=== PATIENT | male | born 1955 | race Caucasian/White ===

== ENCOUNTER 2020-06-24 11:22 | Emergency (ER) | payer BC ==
[~2020-06-24] VITALS: Ht 185.5 cm; Wt 85.7 kg
[2020-06-24] MEDS ORDERED: LACTATED RINGERS 1,000 ML IV SCH (11:30)
--- NOTE | 2020-06-24 11:37 | ED Lower Extremity ---
General Chief Complaint: Lower Extremity Stated Complaint: RIGHT LEG SWELLING Source: patient, EMS Exam Limitations: no limitations History of Present Illness Date Seen by Provider: Jun 24, 2020 Time Seen by Provider: 11:33 Initial Comments To ER by EMS from home with reports of a 5 day history of weakness and general malaise and right leg swelling. Beginning on Sunday, 12 June he noticed some diarrhea nausea and vomiting as well as poor appetite. He had some chills but no measured fever. On Sunday he noticed some swelling and redness and slight discomfort to his right lower leg. No history of this. He is now generally weak with continued swelling and redness of the right leg but absent fever chills for a few days, nausea vomiting diarrhea has also subsided for a few days.. He does smoke about one pack of cigarettes per day, works pouring concrete. Does not have a local physician, formerly was a patient of Dr. Navarrete. Does drink a 6pack of beer daily Onset: other Severity: moderate Pain/Injury Location: right leg Method of Injury: unknown Modifying Factors: Worse With Movement Allergies and Home Medications Allergies Coded Allergies: No Known Drug Allergies (Unverified , 06/24/20) Home Medications Amoxicillin/Potassium Clav 1 Each Tablet, 1 EACH PO BID Prescribed by: BARBI TOVAR on 06/24/20 1304 Patient Home Medication List Home Medication List Reviewed: Yes Review of Systems Constitutional: see HPI, chills EENTM: see HPI Respiratory: no symptoms reported Cardiovascular: no symptoms reported Gastrointestinal: No abdominal pain; diarrhea, nausea, vomiting Genitourinary: no symptoms reported Musculoskeletal: see HPI Skin: see HPI Psychiatric/Neurological: No Symptoms Reported Physical Exam Vital Signs Vital Signs - First Documented 06/24/20 11:31 Temp 36.7 Pulse 96 B/P (MAP) 139/80 (99) O2 Delivery Room Air Capillary Refill : Height, Weight, BMI Height: '" Weight: lbs. oz. kg; BMI Method: General Appearance: WD/WN, no apparent distress HEENT: PERRL/EOMI, normal ENT inspection Neck: non-tender, full range of motion Respiratory: lungs clear, normal breath sounds, no respiratory distress, no accessory muscle use Gastrointestinal: normal bowel sounds, non tender Hips: bilateral hip non-tender, bilateral hip normal inspection, bilateral hip normal range of motion Legs: bilateral leg non-tender, bilateral leg normal inspection, bilateral leg normal range of motion Knees: bilateral knee non-tender, bilateral knee normal inspection, bilateral knee normal range of motion Ankles: bilateral ankle other (hemosiderin staining bilateral lower extremities with swelling of the right lower leg and an erythematous petechial rash mostly confined to the right ankle and the dorsum of the right foot. No open wounds. He denies injury.) Neurologic/Tendon: normal sensation, normal motor functions Neurologic/Psychiatric: alert, normal mood/affect, oriented x 3 Skin: normal color, warm/dry Progress/Results/Core Measures Results/Orders Lab Results Laboratory Tests Test 06/24/20 11:27 Range/Units White Blood Count 6.4 4.3-11.0 10^3/uL Red Blood Count 3.61 L 4.35-5.85 10^6/uL Hemoglobin 11.3 L 13.3-17.7 G/DL Hematocrit 34 L 40-54 % Mean Corpuscular Volume 95 80-99 FL Mean Corpuscular Hemoglobin 31 25-34 PG Mean Corpuscular Hemoglobin Concent 33 32-36 G/DL Red Cell Distribution Width 20.8 H 10.0-14.5 % Platelet Count 87 L 130-400 10^3/uL Mean Platelet Volume 10.1 7.4-10.4 FL Neutrophils (%) (Auto) 59 42-75 % Lymphocytes (%) (Auto) 21 12-44 % Monocytes (%) (Auto) 17 H 0-12 % Eosinophils (%) (Auto) 3 0-10 % Basophils (%) (Auto) 1 0-10 % Neutrophils # (Auto) 3.8 1.8-7.8 X 10^3 Lymphocytes # (Auto) 1.4 1.0-4.0 X 10^3 Monocytes # (Auto) 1.1 H 0.0-1.0 X 10^3 Eosinophils # (Auto) 0.2 0.0-0.3 10^3/uL Basophils # (Auto) 0.1 0.0-0.1 10^3/uL Prothrombin Time 17.3 H 12.2-14.7 SEC INR Comment 1.4 0.8-1.4 Sodium Level 135 135-145 MMOL/L Potassium Level 3.4 L 3.6-5.0 MMOL/L Chloride Level 103 98-107 MMOL/L Carbon Dioxide Level 23 21-32 MMOL/L Anion Gap 9 5-14 MMOL/L Blood Urea Nitrogen 19 H 7-18 MG/DL Creatinine 0.78 0.60-1.30 MG/DL Estimat Glomerular Filtration Rate > 60 BUN/Creatinine Ratio 24 Glucose Level 106 H 70-105 MG/DL Lactic Acid Level 1.68 0.50-2.00 MMOL/L Calcium Level 8.1 L 8.5-10.1 MG/DL Corrected Calcium 9.1 8.5-10.1 MG/DL Total Bilirubin 2.2 H 0.1-1.0 MG/DL Aspartate Amino Transf (AST/SGOT) 37 H 5-34 U/L Alanine Aminotransferase (ALT/SGPT) 20 0-55 U/L Alkaline Phosphatase 76 40-136 U/L Total Protein 8.2 6.4-8.2 GM/DL Albumin 2.7 L 3.2-4.5 GM/DL My Orders Orders - BARBI TOVAR [employer] [facility] Cbc With Automated Diff (06/24/20 11:27) Blood Culture (06/24/20 11:27) Lactic Acid Analyzer (06/24/20 11:27) Protime With Inr (06/24/20 11:27) Chest 1 View, Ap/Pa Only (06/24/20 11:27) Ua Culture If Indicated (06/24/20 11:27) Us Venous Lower Ext Rt (06/24/20 11:27) Comprehensive Metabolic Panel (06/24/20 11:27) Ed Iv/Invasive Line Start (06/24/20 11:27) Lactated Ringers (Lr 1000 Ml Iv Solution (06/24/20 11:30) Vital Signs/I&O 06/24/20 11:31 Temp 36.7 Pulse 96 B/P (MAP) 139/80 (99) O2 Delivery Room Air Departure Communication (Admissions) His labs are unimpressive, his ultrasound is negative, he drinks a sixpack of beer daily. We'll proceed with outpatient antibiotic therapy as inpatient admission is unnecessary and will only cause him to withdraw from alcohol.I made an appointment for him with Dr Will Kaufman Thursday 06/28 at 10 am. Impression Primary Impression: Cellulitis of right lower extremity Disposition: HOME, SELF-CARE Condition: Stable Departure-Patient Inst. Decision time for Depature: 13:02 Referrals: NO,LOCAL PHYSICIAN (PCP) Primary Care Physician DONNA NOBLES CHAD C MD Patient Instructions: Cellulitis (Skin Infection), Adult (DC) Add. Discharge Instructions: 1. Elevate the foot. Take antibiotics as directed. Follow up with primary care next week. Return to ER for any worsening. I made an appointment for you on at 10am with Dr Will Kaufman. All discharge instructions reviewed with patient and/or family. Voiced understanding. Scripts Amoxicillin/Potassium Clav (Augmentin 875-125 Tablet) 1 Each Tablet 1 EACH PO BID, #14 TAB 0 Refills Prov: BARBI TOVAR APRN 06/24/20 Copy Copies To 1: WILL KAUFMAN MD, PETER J [employer] [facility] [employer]ORDER Jun 24, 2020 11:37
[2020-06-24 11:41] LABS: BASOPHILS # (AUTO) 0.1 10^3/uL (0.0-0.1); BASOPHILS % (AUTO) 1 % (0-10); EOSINOPHILS # (AUTO) 0.2 10^3/uL (0.0-0.3); EOSINOPHILS % (AUTO) 3 % (0-10); HEMATOCRIT 34 % (40-54); HEMOGLOBIN 11.3 G/DL (13.3-17.7); LYMPHOCYTES # (AUTO) 1.4 X 10^3 (1.0-4.0); LYMPHOCYTES % (AUTO) 21 % (12-44); MEAN CORPUSCULAR HEMOGLOBIN 31 PG (25-34); MEAN CORPUSCULAR HGB CONC 33 G/DL (32-36); MEAN CORPUSCULAR VOLUME 95 FL (80-99); MEAN PLATELET VOLUME 10.1 FL (7.4-10.4); MONOCYTES # (AUTO) 1.1 X 10^3 (0.0-1.0); MONOCYTES % (AUTO) 17 % (0-12); NEUTROPHILS # (AUTO) 3.8 X 10^3 (1.8-7.8); NEUTROPHILS % (AUTO) 59 % (42-75); PLATELET COUNT 87 10^3/uL (130-400); RED CELL DISTRIBUTION WIDTH 20.8 % (10.0-14.5); WHITE BLOOD COUNT 6.4 10^3/uL (4.3-11.0)
[2020-06-24 11:45] LABS: INR 1.4 (0.8-1.4); PROTHROMBIN TIME PATIENT 17.3 SEC (12.2-14.7)
[2020-06-24 11:53] LABS: ALANINE AMINOTRANSFERASE 20 U/L (0-55); ALBUMIN 2.7 GM/DL (3.2-4.5); ALKALINE PHOSPHATASE 76 U/L (40-136); BILIRUBIN,TOTAL 2.2 MG/DL (0.1-1.0); BUN/CREATININE RATIO 24; CALCIUM 8.1 MG/DL (8.5-10.1); CARBON DIOXIDE 23 MMOL/L (21-32); CHLORIDE 103 MMOL/L (98-107); CREATININE SERUM 0.78 MG/DL (0.60-1.30); GFR ESTIMATED > 60; GLUCOSE 106 MG/DL (70-105); POTASSIUM 3.4 MMOL/L (3.6-5.0); SODIUM 135 MMOL/L (135-145); TOTAL PROTEIN 8.2 GM/DL (6.4-8.2)
--- NOTE | 2020-06-24 11:54 | Diagnostic Imaging Report ---
Indication: Leg swelling, tobaccoism Portable chest 11:54 AM Heart size and pulmonary vascularity are normal. Lungs are clear. There are no effusions or pneumothoraces. IMPRESSION: Negative chest Dictated by: Dictated on workstation # [id number]
--- OUTSIDE RECORDS SUMMARY | 2020-06-24 12:12 | XMS REPORT | Continuity of Care Document ---
Demographics Preferred Language Unknown Marital Status Unknown Baptism Affiliation Unknown Race Unknown Ethnic Group Unknown Author Organization Unknown Address Unknown Phone Unavailable Allergies There is no data. Medications There is no data. Problems There is no data. Procedures There is no data. Results Test Result Range Complete blood count (CBC) with automate d white blood cell (WBC) differential - 06/24/20 11:27 Blood leukocytes automated count (number/volume) 6.4 10*3/uL 4.3-11.0 Blood erythrocytes automated count (number/volume) 3.61 10*6/uL 4.35-5.85 Venous blood hemoglobin measurement (mass/volume) 11.3 g/dL 13.3-17.7 Blood hematocrit (volume fraction) 34 % 40-54 Automated erythrocyte mean corpuscular volume 95 [ foz_us] 80-99 Automated erythrocyte mean corpuscular h emoglobin (mass per erythrocyte) 31 pg 25-34 Automated erythrocyte mean corpuscular h emoglobin concentration measurement (mass/volume) 33 g/dL 32-36 Automated erythrocyte distribution width ratio 20. 8 % 10.0- 14.5 Automated blood platelet count (count/volume) 87 1 0*3/uL 130-400 Automated blood platelet mean volume measurement 10.1 [foz_us] 7.4-10.4 Automated blood neutrophils/100 leukocytes 59 % 42-75 Automated blood lymphocytes/100 leukocytes 21 % 12-44 Blood monocytes/100 leukocytes 17 % 0-12 Automated blood eosinophils/100 leukocytes 3 % 0-10 Automated blood basophils/100 leukocytes 1 % 0-10 Blood neutrophils automated count (number/volume) 3.8 10*3 1.8-7.8 Blood lymphocytes automated count (number/volume) 1.4 10*3 1.0-4.0 Blood monocytes automated count (number/volume) 1. 1 10*3 0.0-1.0 Automated eosinophil count 0.2 10*3/uL 0 .0-0.3 Automated blood basophil count (count/volume) 0.1 10*3/uL 0.0-0.1 PT panel in platelet poor plasma by coag ulation assay - 06/24/20 11:27 Prothrombin time (PT) in platelet poor plasma by coagu lation assay 17.3 s 12.2-14.7 INR in platelet poor plasma or blood by coagulation as say 1.4 0.8-1.4 Blood lactic acid measurement (moles/vol ume) - 06/24/20 11:27 Blood lactic acid measurement (moles/volume) 1.68 mmol/L 0.50-2.00 Comprehensive metabolic panel - 06/24/20 11:27 Serum or plasma sodium measurement (moles/volume) 135 mmol/L 135-145 Serum or plasma potassium measurement (moles/volume) 3.4 mmol/L 3.6-5.0 Serum or plasma chloride measurement (moles/volume) 103 mmol/L 98-107 Carbon dioxide 23 mmol/L 21-32 Serum or plasma anion gap determination (moles/volume) 9 mmol/L 5-14 Serum or plasma urea nitrogen measurement (mass/volume ) 19 mg/dL 7-18 Serum or plasma creatinine measurement (mass/volume) 0.78 mg/dL 0.60-1.30 Serum or plasma urea nitrogen/creatinine mass ratio 24 NRG Serum or plasma creatinine measurement w ith calculation of estimated glomerular filtration rate > NRG Serum or plasma glucose measurement (mass/volume) 106 mg/dL 70-105 Serum or plasma calcium measurement (mass/volume) 8.1 mg/dL 8.5-10.1 Serum or plasma total bilirubin measurement (mass/volu me) 2.2 mg/dL 0.1-1.0 Serum or plasma alkaline phosphatase elías surement (enzymatic activity/volume) 76 U/L 40-136 Serum or plasma aspartate aminotransfera se measurement (enzymatic activity/volume) 37 U/L 5-34 Serum or plasma alanine aminotransferase measurement (enzymatic activity/volume) 20 U/L 0-55 Serum or plasma protein measurement (mass/volume) 8.2 g/dL 6.4-8.2 Serum or plasma albumin measurement (mass/volume) 2.7 g/dL 3.2-4.5 CALCIUM CORRECTED 9.1 mg/dL 8.5-10.1 Encounters ACCT No. Visit Date/Time Discharge Status Pt. Type Provider Facility Loc./Unit Complaint [id number] 06/24/2020 11:46:00 Document Registration
[2020-06-24] MEDS ORDERED: CATHETER FLUSH 10 ML SYR IV PRN (12:45)
[2020-06-24] MEDS ORDERED: IOHEXOL 350 MG/ML 100 ML (OMNIPAQUE 350) VIAL IV ONE (12:45)
[2020-06-24] MEDS ORDERED: NS 100 ML (IVPB) BAG IV ONE (12:45)
[2020-06-24] MEDS ORDERED: HOLD METFORMIN - RECEIVED CONTRAST 20 ML VIAL IV SCH (12:45)
--- NOTE | 2020-06-24 12:53 | Diagnostic Imaging Report ---
INDICATION: Redness and swelling of the right lower extremity. COMPARISON: None. TECHNIQUE: Duplex, barrera-scale and color-flow imaging of the right lower extremity venous system was performed. FINDINGS: The common femoral vein, superficial femoral vein, profunda femoris, and popliteal veins are normal. These vessels show normal compressibility, color flow, and Doppler augmentation. The deep calf veins, although not very well seen, demonstrate no distinct intraluminal thrombus. IMPRESSION: Negative venous Doppler of the right lower extremity. Dictated by: Dictated on workstation # [id number]
[2020-06-24] MEDS ORDERED: AMOX-358 PO (13:04)
[2020-06-24] MEDS ORDERED: HYDR-3870 PO (13:12)
[2020-06-24] MEDS ORDERED: cefTRIAXone FOR IV USE 2,000 MG in WATER (STERILE) FOR INJECTION 20 ML IV ONE (13:15)
[2020-06-24 13:31] LABS: BILIRUBIN,URINE NEGATIVE (NEGATIVE); CLARITY,URINE CLEAR; COLOR,URINE ORANGE; GLUCOSE, URINE (UA) NEGATIVE (NEGATIVE); KETONES,URINE NEGATIVE (NEGATIVE); LEUKOCYTE ESTERASE ,URINE NEGATIVE (NEGATIVE); NITRITE,URINE NEGATIVE (NEGATIVE); PH,URINE 5.5 (5-9); PROTEIN,URINE NEGATIVE (NEGATIVE)
[2020-06-24 13:36] VITALS: BP 129/78
[2020-06-24 13:37] LABS: BACTERIA,URINE FEW /HPF; WBC,URINE RARE /HPF
== END 2020-06-24 13:36 | disposition home or self-care (01) ==
LOC: EDUNIT# 11:22 → ER 11:23
DX: L03.115 Cellulitis of right lower limb (principal); F17.210 Nicotine dependence, cigarettes, uncomplicated
CPT/HCPCS: 36415; 71045; 80053; 81000; 83605; 85025; 85610; 87040

== ENCOUNTER 2020-06-27 13:51 | Observation (INO) | payer BC ==
[~2020-06-27] VITALS: Ht 185.5 cm; Wt 81.8 kg
[~2020-06-27 13:51] MED LIST: AMOX-358 PO; HYDR-3870 PO
--- OUTSIDE RECORDS SUMMARY | 2020-06-27 13:55 | XMS REPORT | Continuity of Care Document ---
Author Author The TABBY Mejia Organization [employer] Address Unknown Phone Unavailable Allergies Active Description Code Type Severity Reaction Onset Reported/Identified Relationship to Patient Clinical Status Yes No Known Drug Allergies [id number] Drug Allergy Unknown N/A 06/24/2020 Medications There is no data. Problems There [...] g/dL 3.2-4.5 CALCIUM CORRECTED 9.1 mg/dL 8.5-10.1 Bacterial blood culture - 06/24/20 11:27 Bacterial blood culture NG NRG Bacterial blood culture - 06/24/20 12:08 Bacterial blood culture NG NRG Complete urinalysis with reflex to cultu re - 06/24/20 13:23 Urine color determination ORANGE NRG Urine clarity determination CLEAR NR G Urine pH measurement by test strip 5.5 5-9 Specific gravity of urine by test strip 1.015 1.016-1.022 Urine protein assay by test strip, semi-quantitative NEGATIVE NEGATIVE Urine glucose detection by automated test strip NE GATIVE NEGATIVE Erythrocytes detection in urine sediment by light micr oscopy NEGATIVE NEGATIVE Urine ketones detection by automated test strip NE GATIVE NEGATIVE Urine nitrite detection by test strip NEGATIVE NEGATIVE Urine total bilirubin detection by test strip NEGA TIVE NEGATIVE Urine urobilinogen measurement by automated test strip (mass/volume) 2.0 mg/dL < = 1.0 Urine leukocyte esterase detection by dipstick NEG ATIVE NEGATIVE Automated urine sediment erythrocyte cou nt by microscopy (number/high power field) NONE NRG Automated urine sediment leukocyte count by microscopy (number/high power field) RARE NRG Bacteria detection in urine sediment by light microsco py FEW NRG Squamous epithelial cells detection in u rine sediment by light microscopy 10-25 NRG Crystals detection in urine sediment by light microsco py NONE NRG Casts detection in urine sediment by light microscopy NONE NRG Mucus detection in urine sediment by light microscopy NEGATIVE NRG Complete urinalysis with reflex to culture NO NRG Encounters ACCT No. Visit Date/Time Discharge Status Pt. Type Provider Facility Loc./Unit Complaint [id number] 06/24/2020 11:23:00 020 13:36:00 DIS Emergency BARBI TOVAR [employer] [facility] ER RIGHT LEG SWELLING [id number] 06/27/2020 13:52:[address] Emergency CALVIN RAMSAY MD [facility] ER CELLULITIS
[2020-06-27 14:12] LABS: BASOPHILS % (AUTO) 1 % (0-10); EOSINOPHILS # (AUTO) 0.2 10^3/uL (0.0-0.3); EOSINOPHILS % (AUTO) 4 % (0-10); HEMATOCRIT 33 % (40-54); HEMOGLOBIN 10.9 G/DL (13.3-17.7); LYMPHOCYTES # (AUTO) 1.3 X 10^3 (1.0-4.0); LYMPHOCYTES % (AUTO) 21 % (12-44); MEAN CORPUSCULAR HEMOGLOBIN 32 PG (25-34); MEAN CORPUSCULAR HGB CONC 33 G/DL (32-36); MEAN CORPUSCULAR VOLUME 97 FL (80-99); MONOCYTES # (AUTO) 0.9 X 10^3 (0.0-1.0); MONOCYTES % (AUTO) 15 % (0-12); NEUTROPHILS # (AUTO) 3.7 X 10^3 (1.8-7.8); NEUTROPHILS % (AUTO) 60 % (42-75); PLATELET COUNT 117 10^3/uL (130-400); RED CELL DISTRIBUTION WIDTH 20.2 % (10.0-14.5); WHITE BLOOD COUNT 6.2 10^3/uL (4.3-11.0)
[2020-06-27] MEDS ORDERED: fentaNYL INJECTION 100 MCG/2 ML AMP IVP ONE (14:15)
--- NOTE | 2020-06-27 14:17 | ED Lower Extremity ---
General Chief Complaint: Lower Extremity Stated Complaint: CELLULITIS Source: patient, EMS Exam Limitations: no limitations History of Present Illness Date Seen by Provider: Jun 27, 2020 Time Seen by Provider: 13:37 Initial Comments The patient arrives to the ER by EMS from his home with chief complaint of increasing pain and inability to walk or put pressure on his right lower extremity. He has increasing redness and dusky color to it according to EMS. He does not follow with a doctor nor have any significant medical or surgical history. He does drink a sixpack of beer a night and smoke cigarettes however he has not been ill to drink in the past 2 weeks because of the pain and inability to get up and move around. No history of trauma. No fevers chills nausea vomiting diarrhea cough. He was seen here a week ago for the same symptoms and given some hydrocodone and antibiotics which she has been taking. His last dose of hydrocodone was this morning which he said gave modest relief. The patient was having some GI symptoms with nausea and vomiting for 5 days leading up to coming into the ER. He is not having any anorexia or vomiting anymore. An appointment was made for 10:[address] Will Kaufman. Allergies and Home Medications Allergies Coded Allergies: No Known Drug Allergies (Unverified , 06/24/20) Home Medications Amoxicillin/Potassium Clav 1 Each Tablet, 1 EACH PO BID Prescribed by: BARBI TOVAR on 06/24/20 1304 Hydrocodone/Acetaminophen 1 Each Tablet, 1 EACH PO Q4-6HR PRN for PAIN-MODERATE Prescribed by: BARBI TOVAR on 06/24/20 1312 Patient Home Medication List Home Medication List Reviewed: Yes Review of Systems Constitutional: No chills, No fever, No malaise; weakness EENTM: No ear discharge, No ear pain Respiratory: No cough, No short of breath Cardiovascular: No chest pain, No edema, No Hx of Intervention, No palpitations Gastrointestinal: No abdominal pain, No constipation, No nausea, No vomiting Genitourinary: No discharge, No dysuria, No frequency Musculoskeletal: No back pain, No joint pain All Other Systems Reviewed Negative Unless Noted: Yes Past Uivypsl-Poxrly-Yfkthy Hx Patient Social History Alcohol Use: Regular Use Alcohol Beverage of Choice: Beer Recreational Drug Use: No Smoking Status: Current Everyday Smoker Type Used: Cigarettes 2nd Hand Smoke Exposure: No Recent Hopitalizations: No Seasonal Allergies Seasonal Allergies: No Past Medical History Surgeries: No Respiratory: No Cardiac: No Neurological: No Genitourinary: No Gastrointestinal: Yes Gastroesophageal Reflux Musculoskeletal: Yes (LEFT THUMB FX) Fractures Integumentary: No Physical Exam Vital Signs Vital Signs - First Documented 06/27/20 13:58 Pulse 91 Resp 18 B/P (MAP) 146/79 (101) Pulse Ox 100 O2 Delivery Room Air Capillary Refill : Height, Weight, BMI Height: '" Weight: lbs. oz. kg; 24.00 BMI Method: General Appearance: WD/WN, mild distress HEENT: PERRL/EOMI, normal ENT inspection, pharynx normal Neck: full range of motion, supple, normal inspection Cardiovascular: normal peripheral pulses, regular rate, rhythm Respiratory: lungs clear, normal breath sounds, no respiratory distress, no accessory muscle use Gastrointestinal: normal bowel sounds, non tender, soft Neurologic/Tendon: normal sensation, normal motor functions, normal tendon functions, responds to pain, no evidence tendon injury Neurologic/Psychiatric: no motor/sensory deficits, alert, normal mood/affect, oriented x 3 Skin: warm/dry, other (right lower extremity below the knee to the level of ankle has a non-blanchable for, macular/patches circumferential. Dusky brown hemosiderin staining bilateral lower extremities.) Progress/Results/Core Measures Results/Orders Lab Results Laboratory Tests Test 06/27/20 13:58 Range/Units White Blood Count 6.2 4.3-11.0 10^3/uL Red Blood Count 3.45 L 4.35-5.85 10^6/uL Hemoglobin 10.9 L 13.3-17.7 G/DL Hematocrit 33 L 40-54 % Mean Corpuscular Volume 97 80-99 FL Mean Corpuscular Hemoglobin 32 25-34 PG Mean Corpuscular Hemoglobin Concent 33 32-36 G/DL Red Cell Distribution Width 20.2 H 10.0-14.5 % Platelet Count 117 L 130-400 10^3/uL Mean Platelet Volume 10.0 7.4-10.4 FL Neutrophils (%) (Auto) 60 42-75 % Lymphocytes (%) (Auto) 21 12-44 % Monocytes (%) (Auto) 15 H 0-12 % Eosinophils (%) (Auto) 4 0-10 % Basophils (%) (Auto) 1 0-10 % Neutrophils # (Auto) 3.7 1.8-7.8 X 10^3 Lymphocytes # (Auto) 1.3 1.0-4.0 X 10^3 Monocytes # (Auto) 0.9 0.0-1.0 X 10^3 Eosinophils # (Auto) 0.2 0.0-0.3 10^3/uL Basophils # (Auto) 0.0 0.0-0.1 10^3/uL Erythrocyte Sedimentation Rate 95 H 0-30 MM/HR Prothrombin Time 17.5 H 12.2-14.7 SEC INR Comment 1.4 0.8-1.4 Activated Partial Thromboplast Time 43 H 24-35 SEC D-Dimer 3.99 H 0.00-0.49 UG/ML Sodium Level 132 L 135-145 MMOL/L Potassium Level 3.3 L 3.6-5.0 MMOL/L Chloride Level 99 98-107 MMOL/L Carbon Dioxide Level 23 21-32 MMOL/L Anion Gap 10 5-14 MMOL/L Blood Urea Nitrogen 10 7-18 MG/DL Creatinine 0.69 0.60-1.30 MG/DL Estimat Glomerular Filtration Rate > 60 BUN/Creatinine Ratio 14 Glucose Level 98 70-105 MG/DL Calcium Level 8.0 L 8.5-10.1 MG/DL Corrected Calcium 9.0 8.5-10.1 MG/DL Total Bilirubin 2.2 H 0.1-1.0 MG/DL Aspartate Amino Transf (AST/SGOT) 34 5-34 U/L Alanine Aminotransferase (ALT/SGPT) 15 0-55 U/L Alkaline Phosphatase 75 40-136 U/L C-Reactive Protein High Sensitivity 4.25 H 0.00-0.50 MG/DL Total Protein 8.3 H 6.4-8.2 GM/DL Albumin 2.7 L 3.2-4.5 GM/DL Serum Alcohol < 10 <10 MG/DL My Orders Orders - CALIVN RAMSAY Ed Iv/Invasive Line Start (06/27/20 14:01) Cbc With Automated Diff (06/27/20 14:01) Comprehensive Metabolic Panel (06/27/20 14:01) Hs C Reactive Protein (06/27/20 14:01) Erythrocyte Sedimentation Rate (06/27/20 14:01) Protime With Inr (06/27/20 14:01) Partial Thromboplastin Time (06/27/20 14:01) Fentanyl Injection (Sublimaze Injection (06/27/20 14:15) Ua Culture If Indicated (06/27/20 14:23) Chest 1 View, Ap/Pa Only (06/27/20 14:23) Ed Iv/Invasive Line Start (06/27/20 14:23) Ns Iv 1000 Ml (Sodium Chloride 0.9%) (06/27/20 14:23) Alcohol (06/27/20 14:33) Drug Screen Stat (Urine) (06/27/20 14:33) Fibrin Degradation Products (06/27/20 14:34) Medications Given in ED Current Medications Medications Dose Ordered Sig/Bree Route Start Time Stop Time Status Last Admin Dose Admin Fentanyl Citrate 50 mcg ONCE ONCE IVP 06/27/20 14:15 06/27/20 14:16 DC 06/27/20 14:16 50 MCG Vital Signs/I&O 06/27/20 13:58 Pulse 91 Resp 18 B/P (MAP) 146/79 (101) Pulse Ox 100 O2 Delivery Room Air Progress Progress Note #1: Time: 14:19 Progress Note Labs including liver function tests ordered. Does not appear to be cellulitic. Negative venous Doppler scan from 3 days ago. Progress Note #2: Time: 16:06 Progress Note Despite 2 cups of Oral Fluids and a Liter of Saline the Patient Is Unable to Produce Any Urine. Creatinines Okay. Suspect That Just Because He Is Dehydrated. We Discussed with Him Staying Overnight for Rehydration and Further Workup and He Is Okay with That. Diagnostic Imaging Diagonstic Imaging: Xray Plain Films/CT/US/NM/MRI: chest Comments [facility] [place], [place] NAME: TABBY RICHARDS [facility] REC#: [id number] PT STATUS: REG ER : 1955 PHYSICIAN: CALVIN RAMSAY MD ADMIT DATE: 06/27/20/ER Draft Date of Exam:06/27/20 CHEST 1 VIEW, AP/PA ONLY INDICATION: Right lower extremity redness and swelling. TECHNIQUE: Single view chest, 2:40 PM. CORRELATION STUDY: 06/24/2020. FINDINGS: The heart size, mediastinal configuration and pulmonary vascularity are within normal limits. The lungs are clear with no consolidating infiltrate. There is no significant effusion or pneumothorax. IMPRESSION: Generally stable negative appearing portable chest. Dictated on workstation # [id number] Dict: 06/27/20 1450 Trans: 06/27/20 1459 [facility] [id number] Interpreted by: NICOL ESCOBEDO DO Electronically signed by: Reviewed: Reviewed by Me Departure Communication (Admissions) Time/Spoke to Admitting Phy: 16:05 Discussed the case with Dr. Dykes and she agrees to observe the patient overnight for some gentle rehydration. Impression Primary Impression: Dehydration determined by examination Additional Impression: Purpura Disposition: ADMITTED INPATIENT Condition: Stable Admissions Decision to Admit Reason: Admit from ER (General) Decision to Admit/Date: Jun 27, 2020 Time/Decision to Admit Time: 16:08 Departure-Patient Inst. Referrals: NO,LOCAL PHYSICIAN (PCP) Primary Care Physician Copy Copies To 1: WILL KAUFMAN MD, TITUS J Jun 27, 2020 14:17
[2020-06-27 14:23] LABS: ALBUMIN 2.7 GM/DL (3.2-4.5); CHLORIDE 99 MMOL/L (98-107); POTASSIUM 3.3 MMOL/L (3.6-5.0); SODIUM 132 MMOL/L (135-145)
[2020-06-27] MEDS ORDERED: NS IV 1000 ML 1,000 ML IV SCH (14:23)
[2020-06-27 14:24] LABS: INR 1.4 (0.8-1.4); PROTHROMBIN TIME PATIENT 17.5 SEC (12.2-14.7)
[2020-06-27 14:25] LABS: GLUCOSE 98 MG/DL (70-105)
[2020-06-27 14:26] LABS: TOTAL PROTEIN 8.3 GM/DL (6.4-8.2)
[2020-06-27 14:27] LABS: BILIRUBIN,TOTAL 2.2 MG/DL (0.1-1.0); CARBON DIOXIDE 23 MMOL/L (21-32)
[2020-06-27 14:29] LABS: ALKALINE PHOSPHATASE 75 U/L (40-136); CREATININE SERUM 0.69 MG/DL (0.60-1.30); GFR ESTIMATED > 60
[2020-06-27 14:30] LABS: BUN/CREATININE RATIO 14
[2020-06-27 14:32] LABS: ALANINE AMINOTRANSFERASE 15 U/L (0-55)
[2020-06-27 14:37] LABS: ERYTHROCYTE SEDIMENTATION RATE 95 MM/HR (0-30)
--- NOTE | 2020-06-27 14:59 | Diagnostic Imaging Report ---
INDICATION: Right lower extremity redness and swelling. TECHNIQUE: Single view chest, 2:40 PM. CORRELATION STUDY: 06/24/2020. FINDINGS: The heart size, mediastinal configuration and pulmonary vascularity are within normal limits. The lungs are clear with no consolidating infiltrate. There is no significant effusion or pneumothorax. IMPRESSION: Generally stable negative appearing portable chest. Dictated by: Dictated on workstation # [id number]
--- OUTSIDE RECORDS SUMMARY | 2020-06-27 16:29 | XMS REPORT | Continuity of Care Document ---
Author Author The TABBY Mejia Organization [employer] Address Unknown Phone Unavailable Allergies Active Description Code Type Severity Reaction Onset Reported/Identified Relationship to Patient Clinical Status Yes No Known Drug Allergies [id number] Drug Allergy Unknown N/A 06/24/2020 Medications There [...] Status Pt. Type Provider Facility Loc./Unit Complaint [id number] 06/24/2020 11:23:00 020 13:36:00 DIS Emergency BARBI TOVAR APRN [facility] ER RIGHT LEG SWELLING [id number] 06/27/2020 16:05:[address] Inpatient SACHA RIBEIRO, ANGÉLICA Sotelo [facility] 4TH DEHYDRATION AND PURPURA
--- NOTE | 2020-06-27 17:00 | NUR ---
UPDATE GIVEN TO BY DR RAMSAY
[2020-06-27 17:05] VITALS: BP 139/94
[2020-06-27] MEDS ORDERED: fentaNYL INJECTION 100 MCG/2 ML AMP INJ PRN (17:30)
[2020-06-27] MEDS ORDERED: IBUPROFEN 800 MG (MOTRIN) TAB PO PRN (17:30)
[2020-06-27] MEDS ORDERED: ONDANSETRON 4 MG/2 ML (SDV) Z0FRAN IV PRN (17:30)
[2020-06-27] MEDS ORDERED: ACETAMINOPHEN 325 MG TABLET PO PRN (17:30)
--- NOTE | 2020-06-27 17:45 | NUR ---
MADELIN RICHARDS admitted to room 409-1, with an admitting diagnosis of DEHYDRATION RIGHT LEG PURURA , on 06/27/20 from ER via [facility], accompanied by STAFF.TABBY RICHARDS introduced to surroundings, call light, bed controls, phone, TV, temperature control, lights, meal times, smoking policy, visitor policy, side rail policy, bathrooms and showers. Patient Rights given to patient in the handbook.TABBY RICHARDS verbalizes understanding that [facility] is not responsible for the loss or damage to any personal effects or valuables that are kept in the patients posession during their hospitalization. The following Patient Care Plans were discussed with the PT: Discharge Planning, PAIN CONTROL,IV FLUIDS, and TESTS AND PROCEDURES. TABBY RICHARDS verbalizes understanding of Interdisciplinary Patient Education. Patient and/or family were informed about the Rapid Response Team and its purpose.
[2020-06-27] MEDS: LACTATED RINGERS 1,000 ML IV SCH ×2 (18:35→23:29)
[2020-06-27 19:17] VITALS: BP 142/72
[2020-06-27] MEDS: HYDROcodone/APAP 5 MG/325 MG (LORTAB) TAB PO PRN (19:47)
[2020-06-27 21:30] LABS: CLARITY,URINE CLEAR; COLOR,URINE ORANGE; GLUCOSE, URINE (UA) NEGATIVE (NEGATIVE); KETONES,URINE TRACE (NEGATIVE); LEUKOCYTE ESTERASE ,URINE NEGATIVE (NEGATIVE); NITRITE,URINE NEGATIVE (NEGATIVE); PH,URINE 5.5 (5-9); PROTEIN,URINE NEGATIVE (NEGATIVE)
[2020-06-27 21:33] LABS: BILIRUBIN,URINE 1+ (NEGATIVE)
[2020-06-27 21:36] LABS: BACTERIA,URINE TRACE /HPF; WBC,URINE RARE /HPF
[2020-06-27 21:42] LABS: AMPHETAMINE SCREEN, URINE NEGATIVE (NEGATIVE); BARBITURATE SCREEN URINE NEGATIVE (NEGATIVE); BENZODIAZEPINES SCREEN URINE POSITIVE (NEGATIVE); CANNABINOID SCREEN, URINE NEGATIVE (NEGATIVE); COCAINE SCREEN URINE NEGATIVE (NEGATIVE); METHADONE STAT NEGATIVE (NEGATIVE); METHAMPHETAMINE SCREEN URINE S NEGATIVE (NEGATIVE); OPIATE SCREEN URINE POSITIVE (NEGATIVE); OXYCODONE STAT NEGATIVE (NEGATIVE); PROPOXYPHENE STAT NEGATIVE (NEGATIVE); TRICYCLIC ANTIDEPRESSANTS SCRE NEGATIVE (NEGATIVE)
[2020-06-28 00:57] VITALS: BP 150/74
[2020-06-28 04:00] VITALS: BP_SYST 152; BP_SYST 153; BP_DIAS 78
[2020-06-28] MEDS: LACTATED RINGERS 1,000 ML IV SCH ×2 (05:03→10:59)
[2020-06-28] MEDS: HYDROcodone/APAP 5 MG/325 MG (LORTAB) TAB PO PRN ×2 (05:05→09:00)
[2020-06-28 08:00] VITALS: BP 160/76
[2020-06-28 08:32] LABS: BASOPHILS % (AUTO) 1 % (0-10); EOSINOPHILS # (AUTO) 0.2 10^3/uL (0.0-0.3); EOSINOPHILS % (AUTO) 3 % (0-10); HEMATOCRIT 31 % (40-54); HEMOGLOBIN 10.3 G/DL (13.3-17.7); LYMPHOCYTES # (AUTO) 1.1 X 10^3 (1.0-4.0); LYMPHOCYTES % (AUTO) 17 % (12-44); MEAN CORPUSCULAR HEMOGLOBIN 32 PG (25-34); MEAN CORPUSCULAR HGB CONC 33 G/DL (32-36); MEAN CORPUSCULAR VOLUME 96 FL (80-99); MEAN PLATELET VOLUME 9.6 FL (7.4-10.4); MONOCYTES # (AUTO) 0.7 X 10^3 (0.0-1.0); MONOCYTES % (AUTO) 10 % (0-12); NEUTROPHILS # (AUTO) 4.4 X 10^3 (1.8-7.8); NEUTROPHILS % (AUTO) 69 % (42-75); PLATELET COUNT 134 10^3/uL (130-400); RED CELL DISTRIBUTION WIDTH 19.7 % (10.0-14.5); WHITE BLOOD COUNT 6.4 10^3/uL (4.3-11.0)
[2020-06-28 08:48] LABS: ALANINE AMINOTRANSFERASE 14 U/L (0-55); ALBUMIN 2.5 GM/DL (3.2-4.5); ALKALINE PHOSPHATASE 62 U/L (40-136); BUN/CREATININE RATIO 12; CALCIUM 8.1 MG/DL (8.5-10.1); CARBON DIOXIDE 25 MMOL/L (21-32); CHLORIDE 101 MMOL/L (98-107); CREATININE SERUM 0.67 MG/DL (0.60-1.30); GFR ESTIMATED > 60; GLUCOSE 108 MG/DL (70-105); MAGNESIUM 1.8 MG/DL (1.6-2.4); POTASSIUM 3.4 MMOL/L (3.6-5.0); SODIUM 133 MMOL/L (135-145); TOTAL PROTEIN 7.8 GM/DL (6.4-8.2)
[2020-06-28] MEDS ORDERED: ENOXAPARIN 40 MG/0.4 ML (LOVENOX) SYR SC SCH (09:00)
[2020-06-28 12:00] VITALS: BP 137/71
[2020-06-28] MEDS ORDERED: AMOX1TAB12 PO (12:20)
[2020-06-28] MEDS ORDERED: HYDR-3812 PO ×2 (12:20→14:20)
[2020-06-28] MEDS ORDERED: ACET325T38 PO (12:20)
--- NOTE | 2020-06-28 12:22 | NUR ---
I SPOKE WITH THE PATIENT AND WENT THROUGH THE EXTERNAL MED HISTORY TO COMPLETE THE MED REC. AMOXICILLIN/POTASSIUM CLAV 875-125MG WAS LAST FILLED ON 06/24/2020 #14 7 DAY SUPPLY OTC: TYLENOL
[2020-06-28] MEDS ORDERED: CEPHALEXIN 250 MG (KEFLEX) CAP PO SCH (13:00)
--- NOTE | 2020-06-28 13:43 | NUR ---
"RD ASSESSMENT PMHx: GERD; ETOH use (6-pack beer in the evening) PT INTERACTION: Pt was awake and pleasant during nutrition assessment. Pt states current appetite is not good, and has been this way for about 2w. Note PO intake 25% x1meal, per chart review. Pt states following a regular diet at home, and has no issues with chewing/swallowing food. Pt states no recent issues with nausea, vomiting, constipation, or diarrhea, and that his last BM was 1w ago. Note pt not currently on bowel regimen per chart review. Pt states unsure of recent wt changes. Note unable to determine recent wt hx, per chart review. Note pt regularly consumes 6-pack of beer in the evening, per chart review. ABNORMAL NUTRITION-RELATED LAB VALUES LOW: Na 132; K 3.3; Ca 2.2; alb 2.7 HIGH: bili 2.2; Pro 8.3 Est. kcal needs: 2050 kcal | 25 kcal/kg Est. Pro needs: 65 g Pro | 0.8 g Pro/kg PES STATEMENT: Inadequate oral intake (NI-2.1) related to loss of appetite as evidenced by pt interview | PO intake 25% x1meal INTERVENTION: Continue with current diet order of Regular diet. Continue with current supplementation order of Ensure Enlive with meals TID, for increased kcal intake. Due to pt's excessive ETOH intake, monitor thiamine levels and replete if necessary. Encouraged pt to eat when able. Will continue to follow and reassess as pt needs, intake, and status change. MONITOR/EVALUATE: PO Intake; Plan of Care; Hydration Status; Weight Status; Lab Values Richard Lake, MS, RD, LD"
--- NOTE | 2020-06-28 13:48 | Occupational Therapy Eval ---
OT Evaluation-General/PLF Medical Diagnosis Admission Date Jun 27, 2020 at 16:05 Medical Diagnosis: dehydration, R leg purpura Onset Date: Jun 27, 2020 Therapy Diagnosis Therapy Diagnosis: impaired ADLs, decreased functional mobility Precautions Precautions/Isolations: Fall Prevention, Standard Precautions Weight Bear Status Weight Bearing Restriction: Full Weight Bearing Location Restriction: LE Bilateral Referral Physician: Carol Ardon Reason: Evaluation/Treatment Medical History Additional Medical History L thumb fx, gastroesophageal reflux Current History ER via EMS from home with c/o of increasing pain and inability to walk/put pressure RLE Reviewed History: Yes Social History Home: Single Level Current Living Status: Spouse Steps Into Home: 3 ADL-Prior Level of Function SCALE: Activities may be completed with or without assistive devices. 3-Krrorxtzdt-dlkyclm completes the activity by him/herself with no assistance from a helper. 5-Set-up or Clean-up Assistance-helper sets up or cleans up; patient completes activity. [place] assists only prior to or following the activity. 4-Supervision or Touching Assistance-helper provides verbal cues and/or touching/steadying and/or contact guard assistance as patient completes activity. Assistance may be provided throughout the activity or intermittently. 3-Partial/Moderate Assistance-helper does LESS THAN HALF the effort. [place] lifts, holds or supports trunk or limbs, but provides less than half the effort. 2-Substantial/Maximal Assistance-helper does MORE THAN HALF the effort. [place] lifts or holds trunk or limbs and provides more than half the effort. 8-Ppqpzbdnu-nqrbxf does ALL the effort. Patient does none of the effort to co mplete the activity. Or, the assistance of 2 or more helpers is required for the patient to complete the activity. If activity was not attempted, code reason: 7-Patient Refused. 9-Not Applicable-not attempted and the patient did not perform the activity before the current illness, exacerbation or injury. 10-Not Attempted due to Environmental Limitations-(lack of equipment, weather restraints, etc.). 88-Not Attempted due to Medical Conditions or Safety Concerns. ADL PLOF Comments Pt reports living at home with his . At PLOF pt was independent with ADLs and functional mobility without AD/AE. He has a tub/shower and owns a shower chair but does not use it. He works at [employer] in [place] where he has to be able to lift and walk around the ~150 foot long building. Self Care: Independent Functional Cognition: Independent DME/Equipment: Tub/Shower Occupation: works at [employer] in [place], [place] OT Current Status Subjective Pt laying in bed, agreeable to OT evaluation and tx. Pt reports pain in RLE but does not verbalize pain rating. Mental Status/Objective Patient Orientation: Person, Place, Time, Situation Attachments: IV Current Glasses/Contacts: Yes Hearing Aids: No Dentures/Partials: Yes Hand Dominance: Right Upper Extremity ROM WFL Upper Extremity Coordination WFL Upper Extremity Sensation WFL Upper Extremity Strength WFL ADL-Treatment Eating (QC): 6 (per pt report he has no difficulty with cutting food, bringing food to his mouth and swallowing.) On/Off Footwear (QC): 3 (Pt sat EOB in order to don gripper socks, pt attempted to don sock over his right foot but has difficulty due to pain. No difficulty with donning LLE sock. OT assisted pt with L sock.) Toileting Hygiene (QC): 5 (Pt had used urinal, reporting no difficulty. OT emptied urinal for pt.) Other Treatments Pt laying in bed, agreeable to OT Tx. OT educated pt on purpose and benefits of OT Tx, he verbalized understanding. Pt then provided information about PLOF and home set up, then participated in UE screening. Pt transferred sit to supine with SBA, then donned gripper socks requiring assistance with donning RLE sock due to pain. Pt able to don LLE sock but reports increased pain when his right foot touched the floor. Pt then transferred sit to supine with SBA. OT emptied pt's urinal. Pt's lunch tray sitting in front of him but reports he is not hungry right now. Pt states he is able to complete eating without difficulty. Po st OT tx, pt laying in bed, call light in reach and all needs met. Education OT Patient Education: Correct positioning, Energy conservation, Modified ADL techniques, Progress toward Goal/Update tx plan, Purpose of tx/functional activities, Safety issues, Transfer techniques Teaching Recipient: Patient Teaching Methods: Discussion Response to Teaching: Verbalize Understanding OT Business Analytics Analyst Goals Business Analytics Analyst Goals Time Frame: Jul 05, 2020 Eating (QC): 6 Oral Hygiene (QC): 6 Toileting Hygiene (QC): 6 Shower/Bathe Self (QC): 6 Upper Body Dressing (QC): 6 Lower Body Dressing (QC): 6 On/Off Footwear (QC): 6 Additional Goals: 1-Demonstrate ADL Tasks, 2-Verbalize Understanding, 3- ImproveStrength/Monique 1=Demonstrate adherence to instructed precautions during ADL tasks. 2=Patient will verbalize/demonstrate understanding of assistive devices/modifications for ADL. 3=Patient will improve strength/tolerance for activity to enable patient to perform ADL's. OT Education/Plan Problem List/Assessment Assessment: Decreased Activ Tolerance, Impaired Funct Balance, Impaired I ADL's, Impaired Self-Care Skills Pt would benefit from skilled OT tx in order to increase independence with basic ADLs and functional mobility. Discharge Recommendations Plan/Recommendations: Continue POC Treatment Plan/Plan of Care Patient would benefit from OT for education, treatment and training to promote independence in ADL's, mobility, safety and/or upper extremity function for ADL's. Plan of Care: ADL Retraining, Functional Mobility, UE Funct Exercise/Act Treatment Duration: Jul 05, 2020 Frequency: 5 times per week Estimated Hrs Per Day: .25 hour per day Agreement: Yes Rehab Potential: Good Time/GCodes Start Time: 13:31 Stop Time: 13:40 Total Time Billed (hr/min): 9 Billed Treatment Time 1, KATY HERNANDEZ OT Jun 28, 2020 13:48
[2020-06-28] MEDS ORDERED: CEPH250C PO (14:20)
[2020-06-28] MEDS ORDERED: APIX5TAB PO (14:21)
--- NOTE | 2020-06-28 14:33 | Physical Therapy Evaluation ---
PT Evaluation-General Medical Diagnosis Admission Date Jun 27, 2020 at 16:05 Medical Diagnosis: dehydration, R leg purpura Onset Date: Jun 27, 2020 Therapy Diagnosis Therapy Diagnosis: debility Precautions Precautions/Isolations: Fall Prevention, Standard Precautions Weight Bear Status Right Lower Extremity: Right Full Weight Bearing Left Lower Extremity: Left Full Weight Bearing Referral Physician: Carol Reason for Referral: Evaluation/Treatment Medical History Pertinent Medical History: Alcoholism, PVD, Smoking Additional Medical History reports he wears compression stocking prior due to bilateral LE edema (chronic) Current History EMS secondary to right LE pain and edema with difficulty ambulating Reviewed History: Yes Social History Home: Single Level Current Living Status: Spouse PT Steps Into Home: 3 Prior Prior Level of Function SCALE: Activities may be completed with or without assistive devices. 7-Lmtefkedld-auamjft completes the activity by him/herself with no assistance from a helper. 5-Set-up or Clean-up Assistance-helper sets up or cleans up; patient completes activity. [place] assists only prior to or following the activity. 4-Supervision or Touching Assistance-helper provides verbal cues and/or touching/steadying and/or contact guard assistance as patient completes activity. Assistance may be provided throughout the activity or intermittently. 3-Partial/Moderate Assistance-helper does LESS THAN HALF the effort. [place] lifts, holds or supports trunk or limbs, but provides less than half the effort. 2-Substantial/Maximal Assistance-helper does MORE THAN HALF the effort. [place] lifts or holds trunk or limbs and provides more than half the effort. 9-Fmbzvwfsk-yxydzj does ALL the effort. Patient does none of the effort to complete the activity. Or, the assistance of 2 or more helpers is required for the patient to complete the activity. If activity was not attempted, code reason: 7-Patient Refused. 9-Not Applicable-not attempted and the patient did not perform the activity before the current illness, exacerbation or injury. 10-Not Attempted due to Environmental Limitations-(lack of equipment, weather restraints, etc.). 88-Not Attempted due to Medical Conditions or Safety Concerns. Bed Mobility: 6 Transfers (B,C,W/C): 6 Gait: 6 Stairs: 6 Indoor Mobility (Ambulation): Independent Stairs: Independent Prior Devices Use: None works at [employer] PT Evaluation-Current Subjective Patient reluctantly agrees to PT and to attempt to ambulate. Pain Numeric Pain Scale: 10-Worst Possible Pain Location: Right Location Body Site: Calf Pain Description: Acute Objective Patient Orientation: Normal For Age Attachments: IV ROM/Strength ROM Lower Extremities right ankle DF/PF limited due to pain and edema/knee flexion WFL/right LE WFL Strength Lower Extremities right LE NT due to painful to touch/left LE 5/5 grossly Integumentary/Posture Integumentary noted right distal LE edema and redness with noted open wound on anterior aspect of distal LE Bowel Incontinence: No Bladder Incontinence: No Posture WFL Neuromuscular (Tone, Coordination, Reflexes) grossly intact Sensory Vision: Functional Hearing: Functional Hand Dominance: Right Sensation Right Lower Extremit: Intact Sensation Left Lower Extremity: Intact Transfers Roll Left to Right (QC): 6 Sit to Lying (QC): 6 Lying to Sitting/Side of Bed(Q: 6 Sit to Stand (QC): 6 Gait Does the Patient Walk?: Yes Mode of Locomotion: Walk Anticipated Mode of Locomotion: Walk Walk 10 feet (QC): 4 Walk 50 ft with 2 Turns(QC): 4 Walk 150 ft (QC): 88 Gait Assistive Device: FWW Comments/Gait Description patient prefers NWB right LE due to edema and pain/is able to perform hopping with FWW to ambulate short distances Balance Sitting Static: Normal Sitting Dynamic: Normal Standing Static: Fair Standing Dynamic: Fair Assessment/Needs 64 y.o. male, will benefit from skilled PT to address functional mobility/strength to ensure safe return to home with spouse at maximum LOF. Patient is currently a high fall risk due to right LE edema and uncontrolled patient due to diagnosis of DVT. PT consulted with physician and SW on POC. PT recommends FWW for safe ambulation upon dismissal. Rehab Potential: Fair Post Rehab Potential-Barriers: compliance PT Correction Goals Correction Goals PT Correction Goals Time Frame: Jul 03, 2020 Roll Left & Right (QC): 6 Sit to Lying (QC): 6 Lying-Sitting on Side/Bed(QC): 6 Sit to Stand (QC): 6 Chair/Rok-kd-Yugek Xfer(QC): 6 Toilet Transfer (QC): 6 Does the Patient Walk: Yes Walk 10 feet (QC): 6 Walk 50ft with 2 Turns (QC): 6 Walk 150 ft (QC): 6 1 Step (curb) (QC): 6 4 Steps (QC): 6 PT Plan Problem List Problem List: Activity Tolerance, Safety, Balance, Gait, ROM Treatment/Plan Treatment Plan: Continue Plan of Care Treatment Plan: Bed Mobility, Education, Functional Activity Monique, Functional Strength, Gait, Safety, Therapeutic Exercise, Transfers Treatment Duration: Jul 03, 2020 Frequency: 5 times per week Estimated Hrs Per Day: .25 hour per day Patient and/or Family Agrees t: Yes Time/GCodes Time In: 1340 Time Out: 1357 Total Billed Treatment Time: 17 Total Billed Treatment 1 visit EVModC 17 min BETTY CORONEL PT Jun 28, 2020 14:33
--- NOTE | 2020-06-28 14:34 | NUR ---
CM/SS visited with the patient for discharge planning. Plan: The patient will return home at time of discharge. Eliquis: The patient is being prescribed Eliquis. CM/SS provided him with a 30 day free card and a 10 dollar co-pay card for patient to use at his pharmacy. Equipment: Per physical therapy, patient would benefit from a front wheeled walker. However, the patient reports that he already has a front wheeled walker at home from his parent-in- laws. No further interventions at this time.
--- NOTE | 2020-06-28 14:52 | Discharge Summary ---
Discharge Summary Hospital Course Was the Problem List Reviewed?: Yes Problems/Dx: (1) Acute deep vein thrombosis (DVT) of right lower extremity Status: Acute Qualifiers: Qualified Codes: I82.401 - Acute embolism and thrombosis of unspecified deep veins of right lower extremity (2) Cellulitis of right lower extremity without foot Status: Acute Hospital Course Date of Admission: Jun 27, 2020 at 16:05 Admission Diagnosis : Acute DVT of right lower extremity Family Physician/Provider: Anna,Local Physician Date of Discharge: 06/28/20 Discharge Diagnosis: Acute DVT of right lower extremity Hospital Course: Terrell Young is a 64-year-old male who presented with right leg pain and swelling. He underwent a right lower extremity ultrasound and was found to have a DVT. He was started on Eliquis. He was given a handful of [place] for leg pain. He was started on Keflex for cellulitis. He needs to establish care with a primary care physician. He was discharged in stable condition. Labs and Pending Lab Test: Laboratory Tests 06/27/20 21:22: Urine Color ORANGE, Urine Clarity CLEAR, Urine pH 5.5, Urine Specific [place] 1 .020, Urine Protein NEGATIVE, Urine Glucose (UA) NEGATIVE, Urine Ketones TRACEH, Urine Nitrite NEGATIVE, Urine Bilirubin 1+H, Urine Urobilinogen 2.0, Urine Leukocyte Esterase NEGATIVE, Urine RBC (Auto) NEGATIVE, Urine RBC NONE, Urine WBC RARE, Urine Squamous Epithelial Cells 2-5, Urine Crystals NONE, Urine Bacteria TRACE, Urine Casts NONE, Urine Mucus SMALLH, Urine Culture Indicated NO, Urine Opiates Screen POSITIVEH, Urine Oxycodone Screen NEGATIVE, Urine Methadone Screen NEGATIVE, Urine Propoxyphene Screen NEGATIVE, Urine Barbiturates Screen NEGATIVE, Ur Tricyclic Antidepressants Screen NEGATIVE, Urine Phencyclidine Screen NEGATIVE, Urine Amphetamines Screen NEGATIVE, Urine Methamphetamines Screen NEGATIVE, Urine Benzodiazepines Screen POSITIVEH, Urine Cocaine Screen NEGATIVE, Urine Cannabinoids Screen NEGATIVE 06/28/20 08:24: White Blood Count 6.4, Red Blood Count 3.25L, Hemoglobin 10.3L, Hematocrit 31L, Mean Corpuscular Volume 96, Mean Corpuscular Hemoglobin 32, Mean Corpuscular Hemoglobin Concent 33, Red Cell Distribution Width 19.7H, Platelet Count 134, Mean Platelet Volume 9.6, Neutrophils (%) (Auto) 69, Lymphocytes (%) (Auto) 17, Monocytes (%) (Auto) 10, Eosinophils (%) (Auto) 3, Basophils (%) (Auto) 1, Neutrophils # (Auto) 4.4, Lymphocytes # (Auto) 1.1, Monocytes # (Auto) 0.7, Eosinophils # (Auto) 0.2, Basophils # (Auto) 0.0, Sodium Level 133L, Potassium Level 3.4L, Chloride Level 101, Carbon Dioxide Level 25, Anion Gap 7, Blood Urea Nitrogen 8, Creatinine 0.67, Estimat Glomerular Filtration Rate > 60, BUN /Creatinine Ratio 12, Glucose Level 108H, Calcium Level 8.1L, Corrected Calcium 9.3, Magnesium Level 1.8, Total Bilirubin 2.0H, Aspartate Amino Transf (AST/SGOT) 35H, Alanine Aminotransferase (ALT/SGPT) 14, Alkaline Phosphatase 62, Total Protein 7.8, Albumin 2.5L Home Meds Active Eliquis (Apixaban) 5 Mg Tablet 5 Mg PO BID 30 Days TAKE 2 TABLETS BID X 7 DAYS, THEN 1 TABLET BID Cephalexin 250 Mg Capsule 500 Mg PO QID 14 Days Hydrocodone-Acetamin 5-325 mg (Hydrocodone/Acetaminophen) 1 Each Tablet 1 Each PO Q4H PRN 5 Days Reported Tylenol (Acetaminophen) 325 Mg Tablet 650 Mg PO Q6H PRN Amox Tr-K Clv 875-125 mg Tab (Amoxicillin/Potassium Clav) 1 Each Tablet 1 Each PO BID FILLED 06/24/2020 #14 7 DAY SUPPLY Assessment/Pt Instructions Take medications as prescribed. Begin taking Eliquis for DVT. Begin taking Keflex for cellulitis. Establish care with a primary care physician. Discharge Planning: <30 minutes discharge planning Discharge Instructions Discharge Diet: No Restrictions Activity as Tolerated: Yes Discharge Physical Examination Vital Signs Vital Signs Date Time Temp Pulse Resp B/P (MAP) Pulse Ox O2 Delivery O2 Flow Rate FiO2 06/28/20 12:00 37.0 100 16 137/71 (93) 94 Room Air General Appearance: No Apparent Distress, Chronically ill HEENT: PERRL/EOMI, Pharynx Normal Respiratory: Lungs Clear, Normal Breath Sounds, No Respiratory Distress Cardiovascular: Regular Rate, Rhythm, No Murmur Gastrointestinal: Normal Bowel Sounds, Non Tender, Soft, Distended Extremity: No Non Tender; Inflammation, Swelling, Other (Bilateral venous stasis dermatitis) Skin: Erythema (Right leg) Neurologic/Psychiatric: Alert, Oriented x3, No Motor/Sensory Deficits, Normal Mood/Affect Allergies: Coded Allergies: No Known Drug Allergies (Unverified , 06/24/20) Discharge Summary Date of Admission Jun 27, 2020 at 16:05 Date of Discharge Discharge Date: Jun 28, 2020 Discharge Time: 14:52 Admission Diagnosis Leg pain Discharge Diagnosis (1) Acute deep vein thrombosis (DVT) of right lower extremity Status: Acute Qualifiers: Qualified Codes: I82.401 - Acute embolism and thrombosis of unspecified deep veins of right lower extremity (2) Cellulitis of right lower extremity without foot Status: Acute Clinical Quality Measures DVT/VTE Risk/Contraindication: Risk Factor Score Per Nursin RFS Level Per Nursing on Admit: 2=Moderate SIERRA ALANIS MD Jun 28, 2020 14:51
[2020-06-28] MEDS ORDERED: APIXABAN 5 MG (ELIQUIS) TABLET PO NR (14:59)
--- NOTE | 2020-06-28 15:07 | Diagnostic Imaging Report ---
INDICATION: Right leg pain and swelling. TIME OF EXAM: 01:24 p.m. FINDINGS: Two views of the right tibia and fibula were obtained. Alignment at the knee and ankle appears normal. Tibia and fibula are intact. No fractures are identified. Soft tissues are unremarkable. IMPRESSION: No acute abnormality is detected. Dictated by: Dictated on workstation # [id number]
--- NOTE | 2020-06-28 15:11 | Diagnostic Imaging Report ---
PROCEDURE: US right lower extremity venous. TECHNIQUE: Multiple Real-time grayscale images were obtained over the right lower extremity in various projections. Additional spectral analysis and color Doppler duplex images were also obtained. INDICATION: Right leg pain and swelling. FINDINGS: The right common femoral, superficial femoral, and popliteal veins are widely patent. These demonstrate normal compressibility with normal response to augmentation and Valsalva. The posterior tibial vein is patent. There is thrombus identified within the peroneal vein in the calf. No fluid collection is seen. IMPRESSION: 1. No evidence of femoropopliteal DVT. 2. Peroneal vein thrombosis. Dictated by: Dictated on workstation # [id number]
== END 2020-06-28 14:23 | disposition home or self-care (01) ==
LOC: EDUNIT# 13:51 → ER 13:52 → UNDOADMOB 16:05 → 4TH 16:05 → UNDODISOB 06-28 15:40
PROVIDERS: ADMIT Family Medicine; ATTEND Family Medicine
DX: I82.451 Acute embolism and thrombosis of right peroneal vein (principal); L03.115 Cellulitis of right lower limb; F17.210 Nicotine dependence, cigarettes, uncomplicated; E86.0 Dehydration; K21.9 Gastro-esophageal reflux disease without esophagitis
CPT/HCPCS: 71045; 73590; 80053 ×2; 80306; 81000; 83735; 85025 ×2; 85379; 85610; 85652; 85730; 86141; 93971; 96361; 96374; 97162; 97165; 99284; G0378; G0480; 36415; 80320

== ENCOUNTER → 2020-09-03 | Outpatient (CLI) | payer BC ==
[~2020-09-03] MED LIST changes: +ACET325T38 PO; +ACHD5005 PO; +AMOX1TAB12 PO; +APIX5TAB PO; +CEPH250C PO
[2020-09-03 11:20] LABS: HEMOGLOBIN 7.8 g/dL (13.3-17.7); MEAN PLATELET VOLUME 9.8 fL (9.0-12.2); WHITE BLOOD COUNT 3.5 10^3/uL (4.3-11.0)
[2020-09-03 11:43] LABS: ALANINE AMINOTRANSFERASE 12 U/L (0-55); ALBUMIN 2.7 GM/DL (3.2-4.5); ALKALINE PHOSPHATASE 78 U/L (40-136); BILIRUBIN,TOTAL 1.8 MG/DL (0.1-1.0); BUN/CREATININE RATIO 13; CALCIUM 8.1 MG/DL (8.5-10.1); CARBON DIOXIDE 28 MMOL/L (21-32); CHLORIDE 99 MMOL/L (98-107); CREATININE SERUM 0.75 MG/DL (0.60-1.30); GFR ESTIMATED > 60; GLUCOSE 129 MG/DL (70-105); SODIUM 136 MMOL/L (135-145); TOTAL PROTEIN 7.9 GM/DL (6.4-8.2)
--- NOTE | 2020-09-03 12:06 | Diagnostic Imaging Report ---
INDICATION: Right upper quadrant pain. TECHNIQUE: Multiple grayscale sonographic images were obtained of the right upper quadrant of the abdomen. CORRELATION STUDY: None FINDINGS: LIVER: There is coarse, nodular echotexture within the visualized portions of the liver. There is normal, hepatopedal direction of flow within the main portal vein. Liver size is borderline enlarged at 19.1 cm. GALLBLADDER: Not well visualized. May be some sludge and borderline gallbladder wall thickening at approximately 4 mm. No definitive shadowing gallstones. COMMON BILE DUCT: Obscured and not well visualized. No overt bile duct dilatation. PANCREAS: Largely obscured and not visualized. RIGHT KIDNEY: Measures 10.6 x 4.9 x 5.2 cm. No hydronephrosis. AORTA/IVC: Not well visualized. OTHER: There is presence of a moderate amount of abdominal ascites, involving all four quadrants. IMPRESSION: 1. Nodular appearance of the liver suggestive of chronic liver disease. Borderline enlarged. 2. Gallbladder and midline structures are not well visualized. 3. Moderate amount of abdominal ascites is present. Dictated by: Dictated on workstation # [id number]
== END ==
LOC: CARD 09:30
PROVIDERS: ATTEND Family Medicine
DX: U07.1 COVID-19 (principal); R01.1 Cardiac murmur, unspecified; R60.0 Localized edema
CPT/HCPCS: 36415; 76705; 80053; 85027; 86769; 93306

== ENCOUNTER 2020-09-13 05:27 | Outpatient (RCR) | payer BC ==
[~2020-09-13] VITALS: Ht 185 cm; Wt 88.1 kg
[~2020-09-13 05:27] MED LIST changes: +FURO-124 PO; +MAGN200T PO; +POTA20TA15 PO; +RIFA550T PO
== END 2020-09-13 10:16 | disposition home or self-care (01) ==
LOC: PREOP 05:27
PROVIDERS: ATTEND Surgery
DX: Z01.812 Encounter for preprocedural laboratory examination (principal); Z20.828 Contact with and (suspected) exposure to other viral communicable diseases
CPT/HCPCS: 87635

== ENCOUNTER 2020-09-15 10:32 | Day surgery (SDC) | payer BC ==
[2020-09-15] VITALS (7 sets, daily range): BP systolic 111–136; BP diastolic 65–77
[~2020-09-15] VITALS: Ht 185 cm; Wt 88.1 kg
[2020-09-15] MEDS ORDERED: LACTATED RINGERS 1,000 ML IV ONE (10:39)
[2020-09-15] MEDS ORDERED: LIDOCAINE JELLY 2% 6 ML SYRINGE MM PRN (10:45)
[2020-09-15] MEDS ORDERED: HURRICAINE EXT TUBE (BENZOCAINE) XX PRN (10:45)
[2020-09-15] MEDS ORDERED: LACTATED RINGERS 1,000 ML IV PRN (10:45)
--- NOTE | 2020-09-15 11:33 | Conscious Sedation/ASA ---
Conscious Sedation Pre-Proced Time 11:00 ASA Score 2 For ASA 3 and 4: Consider anesthesia and medical clearance. Also, for patients with a history of failed moderate sedation consider anesthesia. Airway Lungs Heart ASA score ASA 1: a normal healthy patient ASA 2: a patient with a mild systemic disease (mid diabetes, controlled hypertension, obesity ASA 3: a patient with a severe systemic disease that limits activity (angina, COPD, prior Myocardial infarction) ASA 4: a patient with an incapacitating disease that is a constant threat to life (CHF, renal failure) ASA 5: a moribund patient not expected to survive 24 hrs. (ruptured aneurysm) ASA 6: a declared brain- patient whose organs are being harvested. For emergent operations, add the letter E after the classification Mallampati Classification Grade 2 Sedation Plan Analgesia, Amnesia, Plan communicated to team members, Discussed options with patient/fam, Discussed risks with patient/fam The patient is an appropriate candidate to undergo the planned procedure, sedation, and anesthesia. The patient immediately re-assessed prior to indication. ASAEL SALDIVAR MD Sep 15, 2020 11:33
[2020-09-15] MEDS ORDERED: PANT40TA2 PO (11:34)
--- NOTE | 2020-09-15 11:34 | Progress Note-Pre Operative ---
Pre-Operative Progress Note H&P Reviewed The H&P was reviewed, patient examined and no changes noted. Date Seen by Provider: Sep 15, 2020 Time Seen by Provider: 11:00 Date H&P Reviewed: Sep 15, 2020 Time H&P Reviewed: 11:00 Pre-Operative Diagnosis: anemia, ascites ASAEL SALDIVAR MD Sep 15, 2020 11:33
--- NOTE | 2020-09-15 11:35 | Diagnostic Imaging Report ---
INDICATION: Ascites. TECHNIQUE/FINDINGS: Sonographic guidance was provided for Dr. Gomes for paracentesis. Images demonstrate a large amount of ascites in both the right and left lower quadrants. There is mild fluid in the left upper quadrant with large fluid in the right upper quadrant. IMPRESSION: Moderate ascites. Guidance was provided for Dr. Gomes for paracentesis. Dictated by: Dictated on workstation # [id number]
--- NOTE | 2020-09-15 11:35 | Discharge Inst-Surgical ---
D/C Lap Instructions-KIDO New, Converted, or Re-Newed RX: RX on Chart Follow Up Activity as tolerated High Fiber Diet 25g or more per day Avoid Alcohol, Caffeine, Spicy Combined Locks and Acid foods. Drink 64 fluid oz or more of fluids per day. Symptoms to Report: Fever over 101 degree F, Nausea/Vomiting If any problems/questions: Contact your physician or go to Emergency Room ASAEL SALDIVAR MD Sep 15, 2020 11:35
[2020-09-15] MEDS ORDERED: morphine INJ 10 MG/ML 1ML (SYR OR VIAL) IVP PRN ×2 (11:45)
[2020-09-15] MEDS ORDERED: HYDROcodone/APAP 5 MG/325 MG (LORTAB) TAB PO PRN (11:45)
[2020-09-15] MEDS ORDERED: ACETAMINOPHEN 325 MG TABLET PO PRN (11:45)
[2020-09-15] MEDS ORDERED: ONDANSETRON 4 MG/2 ML (SDV) Z0FRAN IVP PRN (11:45)
[2020-09-15] MEDS ORDERED: PROPOFOL INJECTION 50 ML IV ONE (12:57)
[2020-09-15] MEDS ORDERED: MIDAZOLAM 2 MG/2 ML (VERSED) VIAL ONE (12:57)
[2020-09-15] MEDS ORDERED: LIDOCAINE JELLY 2% 6 ML SYRINGE ONE (13:12)
[2020-09-15 13:50] LABS: TOTAL PROTEIN,BODY FLUID 0.8 G/DL
--- NOTE | 2020-09-15 14:10 | Progress Note-Post Operative ---
Post-Operative Progess Note Surgeon (s)/Program Management Professional (s) Surgeon ASAEL SALDIVAR MD Program Management Professional: none Pre-Operative Diagnosis anemia, ascites Post-Operative Diagnosis transudative ascites, grade 3 esophageal varices, moderate gastritis. chronic stage 2 ext and stage 3 int hemorrhoids, rectosigmoid polyp Procedure & Operative Findings Date of Procedure 09/15/20 Procedure Performed/Findings EGD with bx. Colonoscopy with bx. Paracentesis. Anesthesia Type mac Estimated Blood Loss Estimated blood loss (mL): minimal Specimens/Packing Specimens Removed ge jxn, antrum, rectosigmoid polyp ASAEL SALDIVAR MD Sep 15, 2020 14:10
--- NOTE | 2020-09-15 14:55 | NUR ---
PARACENTESIS CATH & DRAINAGE BAG REMOVED, SITE COVERED WITH 4X4S AND LARGE OPSITE, PT TOLERATED WELL. APPROX 5,000ML OF FLUID COLLECTED. PT INSTRUCTED TO LEAVE DRESSING IN PLACE UNTIL TOMORROW, IF DRAINAGE CONTINUES THEN USE GAUZE AND TAPE UNTIL IT IS DRAINING NO MORE, PT VERBALIZED UNDERSTANDING.
--- NOTE | 2020-09-15 15:00 | Anesthesia-General Post-Op ---
MAC Patient Condition Mental Status/LOC: Same as Preop Cardiovascular: Satisfactory Nausea/Vomiting: Absent Respiratory: Satisfactory Pain: Controlled Complications: Absent Post Op Complications Complications None Follow Up Care/Instructions Patient Instructions None needed. Anesthesiology Discharge Order Discharge Order Patient was seen after the procedure and he was doing well, no complaints, stable vital signs, no apparent adverse anesthesia problems. PATTI COX DO Sep 15, 2020 15:00
--- NOTE | 2020-09-16 00:27 | OPERATIVE REPORT ---
DATE OF SERVICE: 09/15/2020 ATTENDING PRIMARY CARE PHYSICIAN: Dr. Will Lamas. PREOPERATIVE DIAGNOSES: Anemia, ascites. POSTOPERATIVE DIAGNOSES: Significant yellow transudative ascitic fluid approximately 5 liters evacuated, grade III esophageal varices, moderate gastritis, chronic stage III internal hemorrhoids, small polyp of the rectosigmoid junction, 2 mm in size. PROCEDURE: EGD with biopsy, colonoscopy with biopsy. SURGEON: Asael Saldivar MD ANESTHESIA: Monitored anesthesia care. ESTIMATED BLOOD LOSS: Minimal. FINDINGS: Same as postoperative diagnoses. DISPOSITION: The patient tolerated the procedure well. INDICATIONS: The patient is a 65-year-old male referred over to us for anemia, rectal bleeding as well as ascites. He states in 06/2020, he was hospitalized and found to have a DVT in the right lower extremity and was started on anticoagulation; however, developed rectal bleeding. He also was found to be anemic with his initial hemoglobin being around 10 and dropped into of 7.8. He states that he has had a colonoscopy approximately 11 years ago and was found to have a polyp, which was found to be benign. He does report some occasional episodes of reflux. He does not report any emesis as well as no coffee ground emesis or hematemesis. He does drink a significant amount of alcohol. He has been drinking several drinks a day for many years. DESCRIPTION OF PROCEDURE: The patient was brought to the endoscopy suite. Before this, we first proceeded with paracentesis. An ultrasound was performed and marked in the right lower abdominal quadrant. The abdomen was prepped and draped in standard surgical fashion. A 1% lidocaine was then used to anesthetize the skin, subcutaneous tissue, muscle layers as well as the peritoneal lining. A vertical skin incision was then made using 11 blade and the trocar and catheter were then introduced withdrawing of straw yellow transudative fluid. The catheter was then advanced over the trocar without any resistance. The catheter was then placed into tubing and gravity drainage bag and secured to the skin with Op-Site. Good hemostasis was observed. The fluid will be sent for laboratory analysis as well as cytology. After the patient was given adequate sedating medications and monitored anesthesia care, the mouthpiece was applied. The endoscope was placed in the mouth, visualizing the pharynx and hypopharyngeal region. Vocal cords, epiglottis and vallecula identified and appeared to be normal. The endoscope was gently abated esophageal opening and esophagus insufflated. The endoscope was then advanced through the first, second and third portion of esophagus. At the distal esophagus, grade III esophageal varices identified, which encompassed greater than one third of the luminal diameter of the esophagus. Just below this, the GE junction was identified with a reflux esophagitis stage II identified. A biopsy was taken of the GE junction with forceps with visualization of good hemostasis. The endoscope was then advanced into the stomach and endoscope retroflexed visualizing no hiatal hernia. Moderate gastritis was noted. No formal ulcerations, polyps, or any neoplasms as well as no active bleeding. The endoscope was then advanced to the pylorus and the first and second portion of the duodenum, which appeared normal with no distal obstructions. The endoscope was then slowly withdrawn while taking a second look and suctioning residual air with no additional findings. Under the same anesthesia, we then proceeded with colonoscopy portion of the procedure, which revealed chronic stage II external as well as stage III internal hemorrhoids, not actively edematous nor inflamed and no bleeding. Normal sphincter tone was felt and there were no palpable masses. Prostate gland was palpable and appeared normal. The endoscope was then intubated and anus and rectum gently insufflated. The endoscope was then advanced through the valves of Esposito and of the rectum and at the rectosigmoid junction, a small polyp 2 mm in size identified. This was biopsied and destroyed using forceps and electrocautery with visualization of good hemostasis. The endoscope was then advanced to the sigmoid colon where no diverticulosis identified. The endoscope was then advanced to the remainder of the descending, transverse and ascending colon to the cecum. These segments were normal. There were no polyps or any neoplasms identified throughout the colon or rectum. The endoscope was then slowly withdrawn while taking a second look and suctioning of residual air with no additional findings. The patient tolerated the procedure well. The patient appears to have significant portal hypertension and likely liver cirrhosis and will need to be evaluated by hepatology at some point. We will also recommend Protonix 40 mg daily as well as possible nonselective beta ruth like propranolol to decrease portal pressures in hopes of preventing any esophageal variceal bleeding. He will also likely get recurrent ascites and if so, we will proceed with paracentesis as necessary. We will have him follow up in the office for a referral. Job ID: [id number] DocumentID: [id number] Dictated Date: 09/15/2020 14:04:52 Senior Web Analyst Date: 09/16/2020 00:26:54 Dictated By: ASAEL SALDIVAR MD MTDD
== END 2020-09-15 15:15 | disposition home or self-care (01) ==
LOC: ENDO 10:32
PROVIDERS: ATTEND Surgery
DX: K29.50 Unspecified chronic gastritis without bleeding (principal); B96.81 Helicobacter pylori [H. pylori] as the cause of diseases classified elsewhere; D12.7 Benign neoplasm of rectosigmoid junction; K22.70 Barrett's esophagus without dysplasia; K70.31 Alcoholic cirrhosis of liver with ascites; K64.2 Third degree hemorrhoids; I85.00 Esophageal varices without bleeding; D64.9 Anemia, unspecified; F10.10 Alcohol abuse, uncomplicated; F17.210 Nicotine dependence, cigarettes, uncomplicated; K21.9 Gastro-esophageal reflux disease without esophagitis; Z86.718 Personal history of other venous thrombosis and embolism; Z79.899 Other long term (current) drug therapy; Z86.19 Personal history of other infectious and parasitic diseases
CPT/HCPCS: 76942; 82150; 82945; 83615; 84157; 87070; 87205; 88112; 88305

== ENCOUNTER 2020-10-06 11:23 | Outpatient (CLI) | payer BC ==
[~2020-10-06 11:23] MED LIST changes: +PANT40TA2 PO
[2020-10-06 11:26] VITALS: BP 112/60
--- NOTE | 2020-10-06 16:01 | Diagnostic Imaging Report ---
INDICATION: Ascites. EXAMINATION: Sonographic surveillance of the abdomen was performed. FINDINGS: A large volume of ascites demonstrated. An appropriate skin entry site in the left lower quadrant was marked for subsequent paracentesis. IMPRESSION: Sonographic localization of an adequate pocket of fluid in the left lower quadrant with a large volume ascites present. Dictated by: Dictated on workstation # [id number]
--- NOTE | 2020-10-06 22:04 | OPERATIVE REPORT ---
DATE OF SERVICE: 10/06/2020 ATTENDING PRIMARY CARE PHYSICIAN: Will Lamas MD PREOPERATIVE DIAGNOSIS: Recurrent symptomatic ascites. POSTPROCEDURE DIAGNOSES: Recurrent symptomatic ascites. PROCEDURE: Paracentesis. SURGEON: Peyton Saldivar MD INSURANCE CLAIMS ADJUSTER: Júnior Cosme APRN. ANESTHESIA: Local. ESTIMATED BLOOD LOSS: Minimal. FINDINGS: A straw yellow transudative fluid. DISPOSITION: The patient tolerated the procedure well. INDICATIONS: The patient is a 65-year-old male known to us. He initially presented with abdominal distention as well as abdominal pain and was found to have a significant ascites. Upon further questioning, he does have a history of hepatitis C as well as heavy alcohol use in the past. He underwent a paracentesis at that time and did improve and was discharged home. He presented again with abdominal distention, which caused significant pressure on his diaphragm and mild respiratory insufficiency. Upon examination, he had a positive fluid shift wave consistent with recurrent ascites. DESCRIPTION OF PROCEDURE: The left lower abdominal quadrant was prepped and draped in standard surgical fashion. A 1% lidocaine was then used to anesthetize the skin, subcutaneous tissue, muscle layers as well as the peritoneal lining. A vertical skin incision was then made using 11 blade. The trocar and catheter were then introduced withdrawing of straw yellow transudative fluid and the catheter was advanced over the trocar without any resistance. The catheter was then connected to band tubing and a gravity drainage bag. The catheter was then cleaned and covered with gauze followed by Op-Site. The patient tolerated the procedure well. We will continue with drainage until his abdomen is less distended. He is asymptomatic and removed the catheter. We will also recommend a low protein diet as well as a low sodium diet and try to restrict to less than 1.5 grams of sodium daily as well as less than 1.5 liters of water daily and also continue with his diuretics. Job ID: [id number] DocumentID: [id number] Dictated Date: 10/06/2020 15:32:44 Substation Operator Automatic Date: 10/06/2020 22:04:10 Dictated By: PEYTON SALDIVAR MD
== END 2020-10-06 15:40 | disposition home or self-care (01) ==
LOC: SDC 11:23
PROVIDERS: ATTEND Surgery
DX: R18.8 Other ascites (principal)
CPT/HCPCS: 49082; 76942

== ENCOUNTER 2020-10-22 09:53 | Outpatient (CLI) | payer BC ==
--- NOTE | 2020-10-22 11:34 | Diagnostic Imaging Report ---
INDICATION: Ascites. EXAMINATION: Sonographic surveillance of the abdomen was performed. FINDINGS: A large volume of ascites demonstrated. An appropriate skin entry site in the left lower quadrant was marked by the drop press hand for subsequent paracentesis. IMPRESSION: Sonographic localization of an adequate pocket of fluid in the left lower quadrant with a large volume ascites present. Dictated by: Dictated on workstation # [id number]
[2020-10-22] MEDS ORDERED: HYDROcodone/APAP 5 MG/325 MG (LORTAB) TAB ONE (12:12)
[2020-10-22] MEDS ORDERED: HYDROcodone/APAP 5 MG/325 MG (LORTAB) TAB PO ONE (14:00)
[2020-10-22 15:00] VITALS: BP 125/73
--- NOTE | 2020-10-22 15:00 | NUR ---
JUWAN CARRERA HERE AT [facility]OXIM[facility] TO PERFORM PARACENTESIS. ULTRASOUND MARKED THE SPOT PRIOR TO PROCEDURE. PATIENT TOLERATED THE PROCEDURE WELL. DR. SALDIVAR HERE TO SEE PATIENT, RECEIVED ORDER TO REMOVE ABDOMINAL CATHETER AFTER REMOVING 8 LITERS AND TO NOT INFUSE THE ALBUMIN PROTOCOL. PATIENT STATES HE IS FEELING BETTER POST PROCEDURE. ABDOMEN APPEARS TO BE LESS DISTENDED, MORE SOFT, AND TENDER. EDUCATION/INSTRUCTIONS PROVIDED.
--- NOTE | 2020-10-22 21:12 | OPERATIVE REPORT ---
DATE OF SERVICE: 10/22/2020 PREOPERATIVE DIAGNOSIS: Recurrent symptomatic ascites. POSTPROCEDURE DIAGNOSIS: Recurrent symptomatic ascites. PROCEDURE: Paracentesis. SURGEON: Asael Saldivar MD AIRCRAFT DESIGNER: Júnior Cosme APRN. ANESTHESIA: Local. ESTIMATED BLOOD LOSS: Minimal. FINDINGS: A straw yellow transudative fluid. DISPOSITION: The patient tolerated the procedure well. INDICATIONS: The patient is a 65-year-old male, who was initially referred over to us for anemia, rectal bleeding as well as ascites in 06/2020. Upon further examination with the EGD and colonoscopy, he was found to have esophageal varices as well as a stage III hemorrhoids consistent with liver cirrhosis and portal hypertension. He has undergone two previous paracenteses for the last one done on 10/04 of this year. He has had recurrence of abdominal distention with positive fluid shift wave. DESCRIPTION OF PROCEDURE: The patient laid supine on his gurney and the abdomen was prepped and draped in standard surgical fashion. An ultrasound was performed to amairani the abdomen beforehand. A 1% lidocaine was then used to anesthetize the skin, subcutaneous tissue, muscle layers as well as the peritoneal lining. A vertical skin incision was then made using 11 blade. The trocar and then catheter were then placed withdrawing of straw yellow transudative fluid. The catheter was then advanced over the trocar without any resistance. The catheter was then connected to tubing and a gravity drainage bag. Catheter was then cleaned and covered with sterile gauze followed by Op-Site. The patient tolerated the procedure well. We will draw off this ascites fluid until he is less symptomatic and he has decreased abdominal distention and then remove the catheter. Once he has reoccurrence, we will have him follow up. Job ID: [id number] DocumentID: [id number] Dictated Date: 10/22/2020 13:46:39 Rn Labor Delivery Date: 10/22/2020 21:12:07 Dictated By: ASAEL SALDIVAR MD
== END 2020-10-22 15:00 | disposition home or self-care (01) ==
LOC: RAD 09:53
PROVIDERS: ATTEND Surgery
DX: R18.8 Other ascites (principal)
CPT/HCPCS: 49082; 76942

== ENCOUNTER 2020-11-01 15:18 | Outpatient (CLI) | payer BC ==
[~2020-11-01] VITALS: Ht 185 cm; Wt 83600.0 kg
[2020-11-01 15:28] VITALS: BP 138/77
[2020-11-01 19:40] VITALS: BP 138/77
--- NOTE | 2020-11-01 22:10 | OPERATIVE REPORT ---
DATE OF SERVICE: 11/01/2020 ATTENDING PRIMARY CARE PHYSICIAN: Will Lamas MD PREOPERATIVE DIAGNOSIS: Recurrent symptomatic ascites. POSTOPERATIVE DIAGNOSIS: Recurrent symptomatic ascites. PROCEDURE: Paracentesis. SURGEON: Asael Saldivar MD ANESTHESIA: Local. ESTIMATED BLOOD LOSS: Minimal. FINDINGS: Straw yellow transudative fluid. DISPOSITION: The patient tolerated the procedure well. INDICATIONS: The patient is a 65-year-old male who was initially referred over to us for anemia, rectal bleeding as well as ascites in June of 2020. At that time, he was found to have a right lower extremity DVT. He did undergoing EGD on 09/15/2020 as well as a colonoscopy. He was found to have a grade III esophageal varices, moderate gastritis as well as a small polyp of the rectosigmoid junction and a stage III internal hemorrhoids. He has had recurrent episodes of ascites due to liver cirrhosis, which does cause a significant debility and difficulty in ventilation as well as ambulation. His last paracentesis was approximately 10 days ago. DESCRIPTION OF PROCEDURE: The abdomen was prepped and draped in standard surgical fashion. A 1% lidocaine was then used to anesthetize the left lower abdominal quadrant, skin, subcutaneous tissue, muscle layers as well as the peritoneal lining. A vertical skin incision was then made using 11 blade and a catheter and trocar were then introduced withdrawing a straw yellow transudative fluid. The catheter was then advanced over the trocar without any resistance. The catheter was then connected to tubing and a gravity drainage bag. Catheter was cleaned and covered with sterile gauze followed by Op-Site. The patient tolerated the procedure well. We will continue with drainage until he is less symptomatic, which is on average 8 liters and then remove the catheter. Job ID: [id number] DocumentID: [id number] Dictated Date: 11/01/2020 15:59:48 Stitcher Around Date: 11/01/2020 22:08:59 Dictated By: ASAEL SALDIVAR MD
== END 2020-11-01 19:20 | disposition home or self-care (01) ==
LOC: SDC 15:18
PROVIDERS: ATTEND Surgery
DX: Z53.9 Procedure and treatment not carried out, unspecified reason (principal); R18.8 Other ascites
CPT/HCPCS: 49082

== ENCOUNTER 2020-11-17 12:06 | Outpatient (CLI) | payer BC ==
--- NOTE | 2020-11-16 10:54 | HISTORY AND PHYSICAL ---
DATE OF SERVICE: This is for procedure date 11/17/2020. ATTENDING PHYSICIAN: Dr. Will Lamas. HISTORY OF PRESENT ILLNESS: The patient is a 65-year-old male who was referred over to us initially for anemia as well as rectal bleeding and ascites. He states that in 06/2020, he was hospitalized, found to have a DVT in the right lower extremity and was started on anticoagulation; however, developed rectal bleeding. He was found to be anemic with his initial hemoglobin being around 10 and dropped to 7.8. He states he did have a colonoscopy approximately 11 years ago and was found to have a polyp, which was found to be benign. He did report some episodes of reflux. He did not report any hematemesis or any coffee ground emesis. He did report drinking significant amounts of alcohol and had been drinking several drinks a day for several years. On 09/15/2020, he underwent an EGD with biopsy and colonoscopy with biopsies as well as a paracentesis. Findings were significant yellow transudative ascitic fluid and there was approximately 5 liters evacuated. There was grade III esophageal varices and moderate gastritis as well as chronic stage III internal hemorrhoids and a small polyp of the rectosigmoid junction that was 10 mm in size. This was removed and was consistent with tubular adenoma. 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 Since that time, he has been seen back several times and continued to have increasing abdominal distention as well as shortness of breath. He underwent several paracenteses to drain off the ascitic fluid for recurrent symptomatic ascites. He has been getting drained approximately every 2 weeks. He reports that he is currently symptomatic and would like to proceed with another paracentesis. PAST MEDICAL HISTORY: DVT of the right lower extremity, alcohol abuse, ascites, hepatitis C, COVID-19. PAST SURGICAL HISTORY: None. ALLERGIES: No known drug allergies. MEDICATIONS: Xifaxan 550 mg b.i.d., Protonix 40 mg daily, tramadol 50 mg every 4-6 hours p.r.n., magnesium oxide 500 mg b.i.d., Lasix 40 mg daily, potassium 20 mEq daily. SOCIAL HISTORY: Positive for tobacco smoke for 50 pack years, previous for alcohol. FAMILY HISTORY: None. VITAL SIGNS: Stable. Current weight is pounds, 6 feet 1 inches. REVIEW OF SYSTEMS: This is a well-nourished, appearing male in no acute distress. He does report episodes of shortness of breath without difficulty breathing. No chest pain, palpitations or diaphoresis. No nausea or vomiting. He does report some abdominal discomfort and abdominal distention. No diarrhea or constipation. No red blood per rectum. No dark tarry stools. No fever or chills. No recent inadvertent weight loss. All other review of systems negative. PHYSICAL EXAMINATION: CHEST: Clear. Good breath sounds bilaterally. HEART: Regular, no murmurs. EXTREMITIES: There is approximately 1 to 2+ lower extremity edema. Negative Homans sign. HEENT: No scleral icterus. NECK: No cervical lymphadenopathy. ABDOMEN: Soft, distended. There is a positive fluid wave shift. No palpable masses. SKIN: Warm, dry and pink. NEUROLOGIC: Awake, alert and oriented x3. ASSESSMENT AND PLAN: A 65-year-old male with previous history of alcohol abuse, who has developed cirrhosis of the liver. He has been getting paracentesis to drain off the ascitic fluid and has become symptomatic once again and will need another paracentesis, which we will proceed with scheduling. Job ID: [id number] DocumentID: [id number] Dictated Date: 11/16/2020 10:30:20 Glass Cleaning Machine Tender Date: 11/16/2020 10:53:44 Dictated By: DEBI YI APRN
[~2020-11-17] VITALS: Ht 185 cm; Wt 83600.0 kg
[2020-11-17 12:15] VITALS: BP 129/70
[2020-11-17] MEDS ORDERED: HYDROcodone/APAP 7.5 MG/325 MG (LORTAB, LORCET PLUS) TABLET PO ONE ×2 (12:26→12:45)
--- NOTE | 2020-11-17 13:32 | Diagnostic Imaging Report ---
INDICATION: Ascites. IMPRESSION: Ultrasound guidance was used by Dr. Gomes for needle placement. Stored images show a large amount of ascites in the abdomen. Dictated by: Dictated on workstation # [id number]
--- NOTE | 2020-11-17 17:45 | NUR ---
TOTAL OF 8000 CC YELLOW PARACENTESIS FLUID DRAINED AND PARACENTESIS CATHETER THEN REMOVED PER INSTRUCTION FROM DR SALDIVAR. SKIN AFFIX APPLIED, THEN X2 FOLDED 4X4 GAUZE APPLIED TO SITE WITH OPSITE OVER GAUZE. STATES HE FEELS QUITE A BIT OF RELIEF FROM ABD PRESSURE AND FEELS BREATHING IS EASED. ASSIST TO W/C, TAKEN TO PRIVATE VEHICLE FOR DISMISSAL.
--- NOTE | 2020-11-17 19:16 | OPERATIVE REPORT ---
DATE OF SERVICE: 11/17/2020 ATTENDING PRIMARY CARE PHYSICIAN: Will Lamas M.D. PREOPERATIVE DIAGNOSIS: Recurrent symptomatic ascites. POSTPROCEDURE DIAGNOSIS: Recurrent symptomatic ascites. PROCEDURE: Paracentesis. SURGEON: Asael Saldivar MD. ANESTHESIA: Local. ESTIMATED BLOOD LOSS: Minimal. FINDINGS: Straw yellow transudative fluid. DISPOSITION: The patient tolerated the procedure well. INDICATIONS: The patient is a 65-year-old male who was initially referred over to us for anemia and rectal bleeding as well as ascites in June of 2020. At that time, he was found to have a right lower extremity DVT. He did undergo an EGD on 09/15/2020 as well as a colonoscopy. He was found to have grade III esophageal varices, moderate gastritis as well as a small polyp at the rectosigmoid junction and stage III internal hemorrhoids. He has had recurrent episodes of ascites due to liver cirrhosis, which has caused a significant debility and difficulty with ventilation as well as ambulation. His last paracentesis was performed on 11/01/2020 and he has had reoccurrence of fluid accumulation. DESCRIPTION OF PROCEDURE: Abdomen was prepped and draped in standard surgical fashion. A 1% lidocaine was then used to anesthetize the right lower abdominal quadrant. Skin, subcutaneous tissue, muscle layers as well as peritoneal lining. A vertical skin incision was made using 11 blade and the catheter and trocar were then introduced withdrawing of straw yellow transudative fluid. The catheter was then advanced over the trocar without any resistance. The catheter was then connected to tubing and gravity drainage bag. Catheter was then cleaned and covered with sterile gauze followed by Op-Site. The patient tolerated the procedure well. We will continue with drainage until he is less symptomatic, which is on average 8 liters and the catheter were then be removed. Job ID: [id number] DocumentID: [id number] Dictated Date: 11/17/2020 15:25:54 Transfer Man Date: 11/17/2020 19:16:00 Dictated By: ASAEL SALDIVAR MD
== END 2020-11-17 17:45 | disposition home or self-care (01) ==
LOC: RAD 12:06
PROVIDERS: ATTEND Surgery
DX: R18.8 Other ascites (principal)
CPT/HCPCS: 49082; 76942

== ENCOUNTER 2020-11-25 09:04 | Outpatient (CLI) | payer BC ==
[~2020-11-25] VITALS: Ht 185 cm; Wt 83600.0 kg
--- NOTE | 2020-11-25 10:11 | Diagnostic Imaging Report ---
EXAMINATION: Ultrasound-guided paracentesis INDICATION: Ascites Using ultrasound guidance a large collection of fluid was identified in the right lower quadrant. The skin over the fluid collection was marked for the paracentesis to be performed by Dr. Gomes. IMPRESSION: There has been successful ultrasound location of a large collection of ascites in the right lower quadrant. Paracentesis is pending. Dictated by: Dictated on workstation # [id number]
--- NOTE | 2020-11-25 11:58 | OPERATIVE REPORT ---
DATE OF SERVICE: 11/25/2020 PREPROCEDURE DIAGNOSIS: Recurrent symptomatic ascites. POSTPROCEDURE DIAGNOSIS: Recurrent symptomatic ascites. PROCEDURE: Paracentesis. SURGEON: Asael Saldivar MD. PATIENT ACCOUNTING REPRESENTATIVE: Júnior Cosme APRN. ANESTHESIA: Local. ESTIMATED BLOOD LOSS: Minimal. FINDINGS: Straw yellow transudative fluid. DISPOSITION: The patient tolerated the procedure well. INDICATIONS: The patient is a 65-year-old male who was initially referred over to us for anemia and rectal bleeding as well as ascites in 06/2020. At that time, he was found to have a right lower extremity DVT. He did undergo an EGD as well as colonoscopy on 09/15/2020, found to have a grade III esophageal varices, moderate gastritis as well as a small polyp of the rectosigmoid junction, and stage III internal hemorrhoids. He has had recurrent episodes of ascites due to liver cirrhosis, which does cause a significant debility and difficulty with ventilation as well as ambulation. His last paracentesis was on 11/17/2020 and he has had reoccurrence of fluid accumulation. DESCRIPTION OF PROCEDURE: The abdomen was prepped and draped in standard surgical fashion. Before the procedure, ultrasound was performed and marked the right lower abdominal quadrant. A 1% lidocaine was used to anesthetize the skin, subcutaneous tissue, muscle layers as well as the peritoneal lining. A vertical skin incision was made using 11 blade and the catheter and trocar were then introduced withdrawing of straw yellow transudative fluid. The catheter was then advanced over the trocar without any resistance. The catheter was then connected to tubing and gravity drainage bag. The catheter was then cleaned and covered with sterile gauze followed by Op-Site. The patient tolerated the procedure well. We will continue drainage until he is less symptomatic, which is on average 8 liters and then remove the catheter. Job ID: [id number] DocumentID: [id number] Dictated Date: 11/25/2020 10:12:48 Creative Technologist Date: 11/25/2020 11:58:13 Dictated By: ASAEL SALDIVAR MD
[2020-11-25 14:40] VITALS: BP 106/67
== END 2020-11-25 14:40 | disposition home or self-care (01) ==
LOC: RAD 09:04
PROVIDERS: ATTEND Surgery
DX: R18.8 Other ascites (principal)
CPT/HCPCS: 49082; 76942

== ENCOUNTER 2020-12-07 11:55 | Outpatient (CLI) | payer BC ==
[~2020-12-07] VITALS: Ht 185 cm; Wt 83600.0 kg
--- NOTE | 2020-12-07 11:57 | NUR ---
ARRIVES AMB TO [facility] FOR PARACENTESIS. ABDOMEN VERY DISTENDED, FIRM, PT C/O PRESSURE AND DISCOMFORT, RATES 5.
[2020-12-07 12:36] VITALS: BP 121/62
--- NOTE | 2020-12-07 14:15 | NUR ---
DR SALDIVAR HERE FOR PROCEDURE.
--- NOTE | 2020-12-07 14:35 | NUR ---
PARACENTESIS CATHETER IN PLACE, RIGHT LOWER ABD AT ULTRASOUND MARKED SPOT, WITH OPSITE DRESSING OVER SITE. CLEAR, LIGHT YELLOW FLUID DRAINING TO DD BREEN CATH BAG ON LOWER BED RAIL. LUNCH PROVIDED. ORDER RECEIVED FROM DR SALDIVAR FOR LORTAB 7.5/325 MG.
[2020-12-07] MEDS ORDERED: HYDROcodone/APAP 7.5 MG/325 MG (LORTAB, LORCET PLUS) TABLET PO ONE (14:45)
--- NOTE | 2020-12-07 14:47 | NUR ---
LORTAB 7.5/325 MG, ONE TAB, GIVEN FOR C/O ABDOMINAL PAIN RATED 5-6.
--- NOTE | 2020-12-07 15:27 | Diagnostic Imaging Report ---
INDICATION: Ascites. FINDINGS: Radiographic guidance was provided for Dr. Gomes for performance of paracentesis. Images demonstrate large volume ascites in the upper and lower quadrants. IMPRESSION: Sonographic guidance for Dr. Gomes for purpose of paracentesis. Dictated by: Dictated on workstation # [id number]
--- NOTE | 2020-12-07 15:30 | NUR ---
4000 ML PARACENTESIS FLUID OBTAINED. BREEN BAG CHANGED TO 2ND BAG. RESTING QUIETLY IN BED WATCHING TV. STATES HE IS FEELING SOME RELIEF FROM PAIN AND PRESSURE, RATES 4-5.
--- NOTE | 2020-12-07 16:20 | NUR ---
2ND BREEN BAG FULL, 4000 ML OBTAINED. PARACENTESIS CATHETER DC'D PER INSTRUCTION FROM DR SALDIVAR TO DC AFTER 8000 CC FLUID OBTAINED. SKIN AFFIX APPLIED TO PROCEDURE SITE, THEN FOLDED 2X2 GAUZE AND OPSITE APPLIED. PT REPORTS CONSIDERABLE RELIEF OF ABDOMINAL PRESSURE AND PAIN. STEADY WHEN UP FOR DISMISSAL.
--- NOTE | 2020-12-08 00:30 | OPERATIVE REPORT ---
DATE OF SERVICE: 12/07/2020 ATTENDING PRIMARY CARE PHYSICIAN: Dr. Will Lamas. PREPROCEDURE DIAGNOSIS: Recurrent symptomatic ascites. POSTPROCEDURE DIAGNOSIS: Recurrent symptomatic ascites. PROCEDURE: Paracentesis. SURGEON: Dr. Asael Saldivar. ANESTHESIA: Local. ESTIMATED BLOOD LOSS: Minimal. FINDINGS: Straw yellow transudative fluid. DISPOSITION: The patient tolerated the procedure well. INDICATIONS: The patient is a 65-year-old male who was initially referred over to us for anemia and rectal bleeding as well as ascites on 07/01/2020, at that time, he was found to have a right lower extremity DVT. He did undergo an EGD as well as colonoscopy and on 09/15/2020 was found to have grade III esophageal varices, moderate gastritis as well as a small polyp of the rectosigmoid junction and stage III internal hemorrhoids. He had recurrent episodes of ascites due to liver cirrhosis, which has caused significant debility and difficulty with ventilation and ambulation. His last paracentesis was on 11/25/2020. He has had recurrence of fluid accumulation and is again symptomatic. The abdomen was prepped and draped in standard surgical fashion. Before the procedure, ultrasound was performed and marked in the right lower abdominal quadrant. A 1% lidocaine was then used to anesthetize the skin, subcutaneous tissue, muscle layers as well as the peritoneal lining. A vertical skin incision was then made using 11 blade and the catheter and trocar were then introduced with drawing a straw yellow transudative fluid. The catheter was then advanced over the trocar without any resistance. The catheter was then connected to the tubing and gravity drainage bag. The catheter was cleaned and covered with sterile gauze followed by Op-Site. The patient tolerated the procedure well. We will continue with drainage until he is less symptomatic, which is on average 8 liters and then remove the catheter. Job ID: [id number] DocumentID: [id number] Dictated Date: 12/07/2020 14:49:01 Director Sales Date: 12/07/2020 21:20:51 Dictated By: AASEL SALDIVAR MD
== END 2020-12-07 16:30 | disposition home or self-care (01) ==
LOC: RAD 11:55
PROVIDERS: ATTEND Surgery
DX: R18.8 Other ascites (principal)
CPT/HCPCS: 49082; 76942

== ENCOUNTER 2020-12-25 18:40 | Emergency (ER) | payer SELFPAY ==
[~2020-12-25] VITALS: Ht 187 cm; Wt 84.0 kg
[~2020-12-25 18:40] MED LIST changes: +ACET-2267 PO; +FURO40TA4 PO; +HYDR-3817 PO; +MAGN500T PO; +OXC5T PO; +PANT40TA52 PO; +POTA-51 PO
[2020-12-25] MEDS ORDERED: LIDOCAINE/EPI 2% 1:100,00 (XYLOCAINE) 20 ML VIAL ONE (18:44)
[2020-12-25 18:55] LABS: BASOPHILS % (AUTO) 1 % (0-10); EOSINOPHILS # (AUTO) 0.1 10^3/uL (0.0-0.3); EOSINOPHILS % (AUTO) 2 % (0-10); HEMATOCRIT 31 % (40-54); HEMOGLOBIN 9.7 g/dL (13.3-17.7); LYMPHOCYTES % (AUTO) 18 % (12-44); MEAN CORPUSCULAR HEMOGLOBIN 26 pg (25-34); MEAN CORPUSCULAR HGB CONC 31 g/dL (32-36); MEAN CORPUSCULAR VOLUME 83 fL (80-99); MEAN PLATELET VOLUME 10.4 fL (9.0-12.2); MONOCYTES # (AUTO) 0.6 10^3/uL (0.0-1.0); MONOCYTES % (AUTO) 10 % (0-12); NEUTROPHILS # (AUTO) 3.9 10^3/uL (1.8-7.8); NEUTROPHILS % (AUTO) 69 % (42-75); PLATELET COUNT 93 10^3/uL (130-400); WHITE BLOOD COUNT 5.7 10^3/uL (4.3-11.0)
[2020-12-25 19:06] LABS: INR 1.4 (0.8-1.4); PROTHROMBIN TIME PATIENT 17.7 SEC (12.2-14.7)
--- NOTE | 2020-12-25 19:11 | ED General ---
General Chief Complaint: Skin/Wound Problems Stated Complaint: LEAKING DRAIN Nursing Triage Note: PT ARRIVED PER EMS PT CO OF R ABD WOUND FROM PARACENTSIS DONE YESTERDAY. PT WAS RELEASED FROM ICU YESTERDAY. STATES HAS HAD TO CHANGE CLOTHES 5 TIMES TODAY Nursing Sepsis Screen: No Definite Risk Source of Information: Patient, Old Records History of Present Illness Date Seen by Provider: Dec 25, 2020 Time Seen by Provider: 18:42 Initial Comments PT ARRIVES VIA EMS FROM HOME PT WITH END STAGE LIVER FAILURE WITH CHRONIC ASCITES, AND HEPATITIS C, AND ALCOHOLISM. PT HAS BEEN HAVING PARACENTESIS EVERY 2-3 WEEKS--USUALLY BY DR. SALDIVAR PT WAS ADMITTED 12/23-12/24--DISMISSED LAST EVENING FROM ICU. PT WAS SEVERELY ANEMIC WELL AND RECEIVED BLOOD TRANSFUSIONS--5 UNITS OF BLOOD. INITIAL HGB 4.7, WAS 8.6 YESTERDAY AFTER TRANSFUSIONS PT HAS BEEN ON XARELTO FOR DVT, AND THIS HAS BEEN HELD. PT HAD 5.9 LITERS OF ASCITES FLUID DRAINED, DRAIN PUNCTURE SITES X 2--ONE ON EACH SIDE OF ABDOMEN. SINCE PT WAS RELEASED, HE HAS HAD SIGNIFICANT DRAINAGE FROM THE RIGHT PUNCTURE SITE, AND HAS SATURATED HIS CLOTHES 5 TIMES TODAY AND ON ARRIVAL, LARGE AREAS ON BLANKETS AND CLOTHING ARE SATURATED WITH ASCITES FLUID. NO BLOOD. NO BRUISING PT DENIES FEVER DENIES ANY INCREASE IN ABDOMINAL PAIN NO NAUSEA/VOMITING PCP: DR. Shana KAUFMAN SURGEON: DR. SALDIVAR Allergies and Home Medications Allergies Coded Allergies: No Known Drug Allergies (Unverified , 09/09/20) Home Medications Furosemide 40 Mg Tablet, 40 MG PO BID, (Reported) Magnesium Oxide 500 Mg Tablet, 500 MG PO BID, (Reported) Oxycodone Hcl 5 Mg Tab, 5 MG PO BID PRN for PAIN-SEVERE (8-10) Prescribed by: MICHELLE KAUFMAN on 12/24/20 1529 Pantoprazole Sodium 40 Mg Tablet.dr, 40 MG PO DAILY, (Reported) Potassium Chloride 20 Meq Tablet.er, 20 MEQ PO BID, (Reported) Rifaximin 550 Mg Tablet, 550 MG PO BID, (Reported) Patient Home Medication List Home Medication List Reviewed: Yes Review of Systems Review of Systems Constitutional: no symptoms reported; No chills, No diaphoresis, No dizziness, No fever Respiratory: no symptoms reported Cardiovascular: no symptoms reported Gastrointestinal: see HPI; No abdominal pain, No nausea, No vomiting Genitourinary: no symptoms reported Musculoskeletal: other (CHRONIC LEG SWELLING) Hematologic/Lymphatic: See HPI Past Uhvfeph-Rmcitu-Vfpncu Hx Past Med/Social Hx: Reviewed and Corrections made Patient Social History Alcohol Use: Past History Number of Drinks Today: 0 Alcohol Beverage of Choice: Beer Smoking Status: Current Everyday Smoker Type Used: Cigarettes 2nd Hand Smoke Exposure: No Recent Infectious Disease Expo: No Recent Hopitalizations: No Seasonal Allergies Seasonal Allergies: No Past Medical History Surgeries: Yes (PARACENTESIS; EGD'S / COLONOSCOPIES) Respiratory: No Cardiac: Yes (DVT RIGHT LEG) Chronic Edema/Swelling, Deep Vein Thrombosis Neurological: No Genitourinary: No Gastrointestinal: Yes (ASCITES) Gastroesophageal Reflux, Liver Disease/Jaundice, Gastrointestinal Bleed, Hemorrhoids, Esophageal Varices, Hepatitis, Polyps, Cirrhosis Musculoskeletal: Yes (LEFT THUMB FX) Fractures Endocrine: No HEENT: No Loss of Vision: Denies Hearing Impairment: Denies Cancer: No Psychosocial: Yes (ALCOHOLISM) Integumentary: No Blood Disorders: Yes (CHRONIC ANEMAI) Adverse Reaction/Blood Tranf: No YES--TRANSFUSED 5 UNITS 12/23/20--HGB 4.7 Family Medical History Patient reports no known family medical history. No Pertinent Family Hx SOCIAL HISTORY: -ETOH ABUSE--BEER + HARD LIQUOR--CLAIMS LAST ETOH WAS 07/2020 -DRUGS--DENIES USE -SMOKES 1 PPD PAST SURGICAL HISTORY: -MULTIPLE EGD'S/COLONOSCOPIES -MULTIPLE PARACENTESIS ADDITIONAL PAST MEDICAL HISTORY: -END STAGE LIVER FAILURE--ALCOHOLISM, CIRRHOSIS, HEPATITIS C -SEVERE ASCITES AND LEG EDEMA -ESOPHAGEAL VARICES, GASTRITIS, HEMORRHOIDS, RECTOSIGMOID POLYP -CHRONIC ANEMIA-MULTIFACTORIAL--ANEMIA OF CHRONIC DISEASE, CHRONIC GI LOSS. WITH MULTIPLE BLOOD TRANSFUSIONS -LIKELY HAD COVID-19 IN JUNE 2020, HE HAD + COVID-19 IG G ANTIBODIES ON TESTING IN AUGUST 2020 Physical Exam Vital Signs Vital Signs - First Documented 12/25/20 18:50 Temp 35.6 Pulse 102 Resp 18 B/P (MAP) 124/60 (81) Pulse Ox 100 Capillary Refill : Less Than 3 Seconds Height, Weight, BMI Height: '" Weight: lbs. oz. kg; 24.00 BMI Method: General Appearance: No Apparent Distress, Chronically ill Respiratory: Normal Breath Sounds, No Accessory Muscle Use, No Respiratory Dist ress Cardiovascular: Regular Rate, Rhythm Gastrointestinal: Other (DISTENDED WITH ASCITES, UMBILICAL HERNIA PRESENT. RECENT PARACENTESIS SITE ON LEFT ABDOMEN--DRESSING CLEAN/DRY/INTACT AND NO DRAINAGE FROM THE SITE. RIGHT MID ABDOMEN PARACENTESIS SITE WITH CONSTANT LEAKING OF CLEAR ASCITES FLUID. NO BLEEDING OR BRUISING AROUND AREA, AND NO TENDERNESS TO AREA. ) Extremity: Non Tender, Other (4+ EDEMA OF BILATERAL LOWER LEGS WITH SIGNIFICANT CHRONIC VENOUS STASIS CHANGES AND WOODY INDURATION ) Neurologic/Psychiatric: Alert, Oriented x3, Normal Mood/Affect Skin: Warm/Dry, Pallor (SALLOW) Procedures/Interventions Other Wound Location RIGHT MID ABDOMEN, PREVIOUS PARACENTESIS SITE Betadine Prep?: No (BETASEPT) Anesthesia: Lidocaine w/ Epi (2%) Suture: Ethlion Suture Size: 4-0 Other Closure Supply: Wound Adhesive Number of Sutures: 1 (FIGURE 8 SUTURE) Sterile Dressing Applied?: Yes (WITH ABD PADS) Progress FIGURE 8 STITCH PLACED AT SITE, WITH NO FURTHER LEAKING OF ASCITES FLUID AND NO BLEEDING WOUND ADHESIVE APPLIED OVER THIS, PER DR. SALDIVAR'S INSTRUCTIONS NO FURTHER LEAKAGE FROM SITE AREA DRESSED WITH ABD PADS. PT TOLERATED WELL Progress/Results/Core Measures Suspected Sepsis Recent Fever Within 48 Hours: No Infection Criteria Present: None New/Unexplained Altered Menta: No Sepsis Screen: No Definite Risk SIRS Temperature: Pulse: 102 Respiratory Rate: 18 Laboratory Tests 12/25/20 18:45: White Blood Count 5.7 Blood Pressure 124 /60 Mean: 81 Laboratory Tests 12/25/20 18:45: Creatinine 1.07, INR Comment 1.4, Platelet Count 93L, Total Bilirubin 1.8H Results/Orders Lab Results Laboratory Tests Test 12/25/20 18:45 Range/Units White Blood Count 5.7 4.3-11.0 10^3/uL Red Blood Count 3.72 L 4.30-5.52 10^6/uL Hemoglobin 9.7 L 13.3-17.7 g/dL Hematocrit 31 L 40-54 % Mean Corpuscular Volume 83 80-99 fL Mean Corpuscular Hemoglobin 26 25-34 pg Mean Corpuscular Hemoglobin Concent 31 L 32-36 g/dL Red Cell Distribution Width 19.0 H 10.0-14.5 % Platelet Count 93 L 130-400 10^3/uL Mean Platelet Volume 10.4 9.0-12.2 fL Immature Granulocyte % (Auto) 1 % Neutrophils (%) (Auto) 69 42-75 % Lymphocytes (%) (Auto) 18 12-44 % Monocytes (%) (Auto) 10 0-12 % Eosinophils (%) (Auto) 2 0-10 % Basophils (%) (Auto) 1 0-10 % Neutrophils # (Auto) 3.9 1.8-7.8 10^3/uL Lymphocytes # (Auto) 1.0 1.0-4.0 10^3/uL Monocytes # (Auto) 0.6 0.0-1.0 10^3/uL Eosinophils # (Auto) 0.1 0.0-0.3 10^3/uL Basophils # (Auto) 0.0 0.0-0.1 10^3/uL Immature Granulocyte # (Auto) 0.0 0.0-0.1 10^3/uL Prothrombin Time 17.7 H 12.2-14.7 SEC INR Comment 1.4 0.8-1.4 Activated Partial Thromboplast Time 34 24-35 SEC Sodium Level 134 L 135-145 MMOL/L Potassium Level 4.2 3.6-5.0 MMOL/L Chloride Level 105 98-107 MMOL/L Carbon Dioxide Level 22 21-32 MMOL/L Anion Gap 7 5-14 MMOL/L Blood Urea Nitrogen 19 H 7-18 MG/DL Creatinine 1.07 0.60-1.30 MG/DL Estimat Glomerular Filtration Rate > 60 BUN/Creatinine Ratio 18 Glucose Level 159 H 70-105 MG/DL Calcium Level 8.1 L 8.5-10.1 MG/DL Corrected Calcium 9.2 8.5-10.1 MG/DL Total Bilirubin 1.8 H 0.1-1.0 MG/DL Aspartate Amino Transf (AST/SGOT) 26 5-34 U/L Alanine Aminotransferase (ALT/SGPT) 15 0-55 U/L Alkaline Phosphatase 102 40-136 U/L Total Protein 7.2 6.4-8.2 GM/DL Albumin 2.6 L 3.2-4.5 GM/DL My Orders Orders - MARÍA ZARCO DO Ed Iv/Invasive Line Start (12/25/20 18:45) Monitor-Rhythm Ecg Trace Only (12/25/20 18:45) Cbc With Automated Diff (12/25/20 18:45) Comprehensive Metabolic Panel (12/25/20 18:45) Protime With Inr (12/25/20 18:45) Partial Thromboplastin Time (12/25/20 18:45) Lidocaine/Epi 2% 1:100,000 (Xylocaine/Ep (12/25/20 18:44) Wound Dressing-Ed (12/25/20 19:37) Vital Signs/I&O 12/25/20 18:50 Temp 35.6 Pulse 102 Resp 18 B/P (MAP) 124/60 (81) Pulse Ox 100 Capillary Refill : Less Than 3 Seconds Blood Pressure Mean: 81 Progress Note : Progress Note UNEVENTFUL ER STAY Departure Communication (Admissions) 4554--SPOKE WITH DR. SALDIVAR, ADVISES TO SUTURE THE PUNCTURE SITE AND THEN APPLY DERMABOND. HIS OFFICE WILL CONTACT PT ON SUNDAY AND ARRANGE FOR WEEKLY PARACEN TESIS. Impression Primary Impression: LEAK FROM PARACENTESIS SITE Additional Impressions: CHRONIC ASCITES CHRONIC ANEMIA Disposition: HOME, SELF-CARE Condition: Stable Departure-Patient Inst. Referrals: ASAEL SALDIVAR MD, CHAD C MD (PCP/Family) Primary Care Physician Patient Instructions: Wound Care (DC) Add. Discharge Instructions: LEAVE SUTURE SITE AND SKIN GLUE ALONE CHANGE DRESSING DAILY OR MORE OFTEN IF NEEDED CONTINUE PREVIOUS DISCHARGE INSTRUCTIONS FOLLOW UP WITH DR. SALDIVAR'S OFFICE ON SUNDAY--HIS OFFICE WILL CONTACT YOU ON SUNDAY TO ARRANGE ANOTHER PARACENTESIS All discharge instructions reviewed with patient and/or family. Voiced understanding. MARÍA ZARCO DO Dec 25, 2020 19:11
[2020-12-25 19:15] LABS: ALANINE AMINOTRANSFERASE 15 U/L (0-55); ALBUMIN 2.6 GM/DL (3.2-4.5); ALKALINE PHOSPHATASE 102 U/L (40-136); BILIRUBIN,TOTAL 1.8 MG/DL (0.1-1.0); BUN/CREATININE RATIO 18; CALCIUM 8.1 MG/DL (8.5-10.1); CARBON DIOXIDE 22 MMOL/L (21-32); CHLORIDE 105 MMOL/L (98-107); CREATININE SERUM 1.07 MG/DL (0.60-1.30); GFR ESTIMATED > 60; GLUCOSE 159 MG/DL (70-105); POTASSIUM 4.2 MMOL/L (3.6-5.0); SODIUM 134 MMOL/L (135-145); TOTAL PROTEIN 7.2 GM/DL (6.4-8.2)
[2020-12-25 21:00] VITALS: BP 124/74
== END 2020-12-25 21:00 | disposition home or self-care (01) ==
LOC: EDUNIT# 18:40 → ER 18:41
DX: T81.89XA Other complications of procedures, not elsewhere classified, initial encounter (principal); R18.8 Other ascites; D64.9 Anemia, unspecified; K21.9 Gastro-esophageal reflux disease without esophagitis; F17.210 Nicotine dependence, cigarettes, uncomplicated
CPT/HCPCS: 36415; 80053; 85025; 85610; 85730; 93041

== ENCOUNTER 2021-01-05 12:05 | Outpatient (CLI) | payer SELFPAY ==
[~2021-01-05] VITALS: Ht 185.5 cm; Wt 84.0 kg
[2021-01-05 12:15] VITALS: BP 129/73
--- NOTE | 2021-01-05 13:55 | Diagnostic Imaging Report ---
INDICATION: Ascites. Sonographic guidance was provided for Dr. Gomes for performance of paracentesis. Images demonstrates large amount of ascites present. IMPRESSION: Sonographic guidance for Dr. Gomes for paracentesis. Dictated by: Dictated on workstation # [id number]
[2021-01-05] MEDS ORDERED: HYDROcodone/APAP 7.5 MG/325 MG (LORTAB, LORCET PLUS) TABLET PO ONE ×2 (15:12→15:15)
--- NOTE | 2021-01-05 21:23 | OPERATIVE REPORT ---
DATE OF SERVICE: 01/05/2021 ATTENDING PRIMARY CARE PHYSICIAN: Dr. Will Lamas. PREPROCEDURE DIAGNOSIS: Recurrent symptomatic ascites. POSTPROCEDURE DIAGNOSIS: Recurrent symptomatic ascites. PROCEDURE: Paracentesis. SURGEON: Asael Saldivar MD. FINDINGS: Blood-tinged straw yellow transudative fluid. DISPOSITION: The patient tolerated the procedure well. ANESTHESIA: Local. INDICATIONS: The patient is a 65-year-old male with end-stage liver disease and recurrent symptomatic ascites as well as caput medusae and esophageal varices. He has undergone multiple paracentesis by us in the past and was also recently admitted and underwent a paracentesis at that time. He has had reaccumulation of fluid and will need another therapeutic paracentesis. DESCRIPTION OF PROCEDURE: The abdomen was prepped and draped in standard surgical fashion. Before this, ultrasound was performed and the left lower abdominal quadrant marked. Skin, subcutaneous tissue, muscle layers as well as the peritoneal lining were then anesthetized using 1% lidocaine. A vertical skin incision was then made using a 15 blade. A trocar and catheter were then introduced withdrawing of blood tinged transudative fluid. The catheter was then advanced over the trocar without any resistance. The catheter was then connected to band tubing followed by gravity drainage bag and the catheter covered with sterile gauze followed by Op-Site. The patient tolerated the procedure well and we will remove our normal average, which was approximately 8 liters and then removed the catheter and discharge him home. He is instructed to continue with salt and fluid restriction as well as his continued spironolactone and other diuretics. Job ID: [id number] DocumentID: [id number] Dictated Date: 01/05/2021 16:26:09 Buyer Internship Date: 01/05/2021 21:22:32 Dictated By: ASAEL SALDIVAR MD
== END 2021-01-05 18:15 | disposition home or self-care (01) ==
LOC: RAD 12:05
PROVIDERS: ATTEND Surgery
DX: R18.8 Other ascites (principal)
CPT/HCPCS: 49082; 76942

== ENCOUNTER 2021-01-14 11:57 | Outpatient (CLI) | payer BC, MEDICARE ==
[2021-01-14 13:30] VITALS: BP 129/75
--- NOTE | 2021-01-17 08:37 | Diagnostic Imaging Report ---
Indication: Ascites. Sonographic guidance was provided for Dr. Gomes for a paracentesis. Marking was provided in the left lower quadrant where there is a large amount of ascites present. IMPRESSION: Sonographic guidance for Dr. Gomes for paracentesis. Dictated by: Dictated on workstation # [id number]
--- NOTE | 2021-01-17 10:22 | OPERATIVE REPORT ---
DATE OF SERVICE: 01/14/2021 ATTENDING PRIMARY CARE PHYSICIAN: Dr. Will Lamas. PREOPERATIVE DIAGNOSIS: Symptomatic recurrent ascites with end-stage liver disease. POSTOPERATIVE DIAGNOSIS: Symptomatic recurrent ascites with end-stage liver disease. PROCEDURE: Paracentesis. SURGEON: Asael Saldivar MD. HISTORIAN RESEARCH ASSISTANT: Júnior Cosme APRN. ANESTHESIA: Local. ESTIMATED BLOOD LOSS: Minimal. FINDINGS: Blood-tinged clear transudative fluid. DISPOSITION: The patient tolerated the procedure well. INDICATIONS: The patient is a 65-year-old male with end-stage liver disease and recurrent symptomatic ascites as well as caput medusae and esophageal varices. He has undergone multiple paracentesis by us in the past. Unfortunately, he has had reaccumulation of fluid and will need another therapeutic paracentesis. DESCRIPTION OF PROCEDURE: The abdomen was prepped and draped in standard surgical fashion. Before this, an ultrasound was performed. Left lower abdominal quadrant marked. The skin, subcutaneous tissue, muscle layers as well as the peritoneal lining were then anesthetized using 1% lidocaine. A vertical skin incision was made using a 15 blade and the trocar and catheter were then introduced withdrawing of blood-tinged transudative fluid. The catheter was then advanced over the trocar without any resistance and the catheter connected to band tubing followed by gravity drainage bag. The catheter was then cleaned and covered with sterile gauze followed by Op-Site. The patient tolerated the procedure well. We will remove his normal average, which is approximately 8 liters and then remove the catheter and discharge him home. He is instructed to again proceed with salt and fluid restriction as well as continued spironolactone and Lasix. Job ID: [id number] DocumentID: [id number] Dictated Date: 01/14/2021 14:34:07 Aromatherapist Date: 01/14/2021 20:48:59 Dictated By: ASAEL SALDIVAR MD <Dictated by ASAEL SALDIVAR MD> <Electronically signed by ASAEL SALDIVAR MD> 01/14/212126 [facility]
== END 2021-01-14 15:45 | disposition home or self-care (01) ==
LOC: RAD 11:57
PROVIDERS: ATTEND Surgery
DX: R18.8 Other ascites (principal)
CPT/HCPCS: 49082; 76942

== ENCOUNTER 2021-01-14 12:00 | Outpatient (CLI) | payer SELFPAY ==
[2021-01-14 12:20] LABS: BASOPHILS # (AUTO) 0.1 10^3/uL (0.0-0.1); BASOPHILS % (AUTO) 1 % (0-10); EOSINOPHILS # (AUTO) 0.1 10^3/uL (0.0-0.3); EOSINOPHILS % (AUTO) 3 % (0-10); HEMATOCRIT 34 % (40-54); HEMOGLOBIN 10.3 g/dL (13.3-17.7); LYMPHOCYTES # (AUTO) 0.8 10^3/uL (1.0-4.0); LYMPHOCYTES % (AUTO) 15 % (12-44); MEAN CORPUSCULAR HEMOGLOBIN 27 pg (25-34); MEAN CORPUSCULAR HGB CONC 31 g/dL (32-36); MEAN CORPUSCULAR VOLUME 89 fL (80-99); MEAN PLATELET VOLUME 9.3 fL (9.0-12.2); MONOCYTES # (AUTO) 0.7 10^3/uL (0.0-1.0); MONOCYTES % (AUTO) 14 % (0-12); NEUTROPHILS # (AUTO) 3.3 10^3/uL (1.8-7.8); NEUTROPHILS % (AUTO) 66 % (42-75); PLATELET COUNT 138 10^3/uL (130-400); WHITE BLOOD COUNT 4.9 10^3/uL (4.3-11.0)
== END 2021-01-14 15:45 | disposition home or self-care (01) ==
LOC: SDC 12:00
PROVIDERS: ATTEND Family Medicine
DX: D64.9 Anemia, unspecified (principal)
CPT/HCPCS: 36415; 85025

== ENCOUNTER 2021-01-17 22:12 | Inpatient (IN) | payer MEDICARE ==
[~2021-01-17] VITALS: Ht 172 cm; Wt 90.2 kg
[2021-01-17 22:30] LABS: BASOPHILS % (AUTO) 0 % (0-10); EOSINOPHILS # (AUTO) 0.1 10^3/uL (0.0-0.3); EOSINOPHILS % (AUTO) 1 % (0-10); HEMATOCRIT 29 % (40-54); HEMOGLOBIN 9.3 g/dL (13.3-17.7); LYMPHOCYTES # (AUTO) 0.8 10^3/uL (1.0-4.0); LYMPHOCYTES % (AUTO) 8 % (12-44); MEAN CORPUSCULAR HEMOGLOBIN 27 pg (25-34); MEAN CORPUSCULAR HGB CONC 32 g/dL (32-36); MEAN CORPUSCULAR VOLUME 86 fL (80-99); MEAN PLATELET VOLUME 9.5 fL (9.0-12.2); MONOCYTES # (AUTO) 0.6 10^3/uL (0.0-1.0); MONOCYTES % (AUTO) 7 % (0-12); NEUTROPHILS # (AUTO) 8.4 10^3/uL (1.8-7.8); NEUTROPHILS % (AUTO) 85 % (42-75); PLATELET COUNT 110 10^3/uL (130-400); WHITE BLOOD COUNT 9.9 10^3/uL (4.3-11.0)
[2021-01-17 22:37] LABS: ABG BASE EXCESS 2.8 MMOL/L (-2.5-2.5); ABG OXYGEN SATURATION 98 % (94-100); ABG PCO2 29 MMHG (35-45); ABG PH 7.55 (7.37-7.43); ABG PO2 85 MMHG (79-93); ABG TCO2 26.2 MMOL/L (21.0-31.0)
[2021-01-17 22:38] LABS: BILIRUBIN,URINE NEGATIVE (NEGATIVE); CLARITY,URINE CLEAR; COLOR,URINE YELLOW; GLUCOSE, URINE (UA) NEGATIVE (NEGATIVE); KETONES,URINE NEGATIVE (NEGATIVE); LEUKOCYTE ESTERASE ,URINE NEGATIVE (NEGATIVE); NITRITE,URINE NEGATIVE (NEGATIVE); PH,URINE 6.5 (5-9); PROTEIN,URINE NEGATIVE (NEGATIVE)
[2021-01-17 22:42] LABS: ALBUMIN 2.2 GM/DL (3.2-4.5); CHLORIDE 102 MMOL/L (98-107); POTASSIUM 4.2 MMOL/L (3.6-5.0); SODIUM 133 MMOL/L (135-145)
[2021-01-17 22:43] LABS: INR 1.4 (0.8-1.4); PROTHROMBIN TIME PATIENT 17.5 SEC (12.2-14.7)
[2021-01-17 22:44] LABS: AMMONIA 199 UMOL/L (11-32); AMYLASE 112 U/L (25-125); CALCIUM 7.7 MG/DL (8.5-10.1)
[2021-01-17 22:45] LABS: GLUCOSE 102 MG/DL (70-105); TOTAL PROTEIN 6.6 GM/DL (6.4-8.2)
[2021-01-17 22:45] LABS: ALLENS TEST YES-POS; INSPIRED O2 ROOM AIR; PATIENT TEMP 36.9; VENTILATOR NO
[2021-01-17 22:46] LABS: CARBON DIOXIDE 23 MMOL/L (21-32)
[2021-01-17 22:47] LABS: BILIRUBIN,TOTAL 1.8 MG/DL (0.1-1.0)
[2021-01-17 22:47] LABS: BACTERIA,URINE NEGATIVE /HPF
[2021-01-17 22:48] LABS: ALKALINE PHOSPHATASE 88 U/L (40-136)
[2021-01-17 22:49] LABS: CREATININE SERUM 1.17 MG/DL (0.60-1.30); GFR ESTIMATED > 60
[2021-01-17 22:50] LABS: BUN/CREATININE RATIO 17
[2021-01-17 22:51] LABS: ALANINE AMINOTRANSFERASE 24 U/L (0-55); MAGNESIUM 2.3 MG/DL (1.6-2.4)
[2021-01-17 22:52] LABS: LIPASE 50 U/L (8-78)
[2021-01-17 22:53] LABS: ACETAMINOPHEN < 10 UG/ML (10-30)
[2021-01-17 22:54] LABS: EOSINOPHILS % (MANUAL) 2 %; LYMPHOCYTES % (MANUAL) 2 %; MONOCYTES % (MANUAL) 7 %; NEUTROPHILS % (MANUAL) 89 %; RBC MORPH NORMAL
[2021-01-17 22:56] LABS: AMPHETAMINE SCREEN, URINE NEGATIVE (NEGATIVE); BARBITURATE SCREEN URINE NEGATIVE (NEGATIVE); BENZODIAZEPINES SCREEN URINE POSITIVE (NEGATIVE); CANNABINOID SCREEN, URINE NEGATIVE (NEGATIVE); COCAINE SCREEN URINE NEGATIVE (NEGATIVE); METHADONE STAT NEGATIVE (NEGATIVE); METHAMPHETAMINE SCREEN URINE S NEGATIVE (NEGATIVE); OPIATE SCREEN URINE POSITIVE (NEGATIVE); OXYCODONE STAT NEGATIVE (NEGATIVE); PROPOXYPHENE STAT NEGATIVE (NEGATIVE); TRICYCLIC ANTIDEPRESSANTS SCRE NEGATIVE (NEGATIVE)
[2021-01-17] MEDS ORDERED: LACTULOSE SYRUP 10GM/15ML (ENULOSE) 30ML UDC PO ONE (23:15)
[2021-01-17] MEDS ORDERED: LACTULOSE 10 GM/15 ML 30 ML POUR BOTTLE FOR ENEMA PR ONE (23:45)
[2021-01-18] MEDS ORDERED: D5 1/2 NS W/KCL 20 MEQ/L 1,000 ML IV ONE (01:23)
[2021-01-18 01:42] LABS: ABG BASE EXCESS 2.8 MMOL/L (-2.5-2.5); ABG OXYGEN SATURATION 82 % (94-100); ABG PCO2 30 MMHG (35-45); ABG PH 7.54 (7.37-7.43); ABG PO2 45 MMHG (79-93); ABG TCO2 26.5 MMOL/L (21.0-31.0)
[2021-01-18 01:44] LABS: ALLENS TEST YES-POS; INSPIRED O2 2L; PATIENT TEMP 36.3; VENTILATOR NO
[2021-01-18 02:50] LABS: BASOPHILS % (AUTO) 0 % (0-10); EOSINOPHILS % (AUTO) 0 % (0-10); HEMATOCRIT 31 % (40-54); HEMOGLOBIN 9.5 g/dL (13.3-17.7); LYMPHOCYTES # (AUTO) 0.7 10^3/uL (1.0-4.0); LYMPHOCYTES % (AUTO) 7 % (12-44); MEAN CORPUSCULAR HEMOGLOBIN 27 pg (25-34); MEAN CORPUSCULAR HGB CONC 31 g/dL (32-36); MEAN CORPUSCULAR VOLUME 87 fL (80-99); MEAN PLATELET VOLUME 9.7 fL (9.0-12.2); MONOCYTES # (AUTO) 0.8 10^3/uL (0.0-1.0); MONOCYTES % (AUTO) 8 % (0-12); NEUTROPHILS # (AUTO) 8.2 10^3/uL (1.8-7.8); NEUTROPHILS % (AUTO) 84 % (42-75); PLATELET COUNT 106 10^3/uL (130-400); WHITE BLOOD COUNT 9.7 10^3/uL (4.3-11.0)
[2021-01-18] MEDS: D5 1/2 NS W/KCL 20 MEQ/L 1,000 ML IV SCH ×3 (02:51→20:25)
[2021-01-18 03:02] LABS: ALBUMIN 2.3 GM/DL (3.2-4.5); CHLORIDE 102 MMOL/L (98-107); POTASSIUM 4.4 MMOL/L (3.6-5.0); SODIUM 134 MMOL/L (135-145)
[2021-01-18 03:04] LABS: AMMONIA 77 UMOL/L (11-32); CALCIUM 7.8 MG/DL (8.5-10.1)
[2021-01-18 03:05] LABS: GLUCOSE 118 MG/DL (70-105); TOTAL PROTEIN 6.6 GM/DL (6.4-8.2)
[2021-01-18 03:06] LABS: CARBON DIOXIDE 23 MMOL/L (21-32)
[2021-01-18 03:08] LABS: ALKALINE PHOSPHATASE 88 U/L (40-136); PHOSPHORUS 3.4 MG/DL (2.3-4.7)
[2021-01-18 03:09] LABS: CREATININE SERUM 1.19 MG/DL (0.60-1.30); GFR ESTIMATED > 60
[2021-01-18 03:10] LABS: BUN/CREATININE RATIO 17
[2021-01-18 03:11] LABS: MAGNESIUM 2.3 MG/DL (1.6-2.4)
[2021-01-18 03:12] LABS: ALANINE AMINOTRANSFERASE 25 U/L (0-55)
--- NOTE | 2021-01-18 06:41 | Pulmonary Consultation ---
History of Present Illness History of Present Illness Date Seen by Provider: Jan 19, 2021 Time Seen by Provider: 04:08 Date of Admission Allergies and Home Medications Allergies Coded Allergies: No Known Drug Allergies (Unverified , 09/09/20) Home Medications Furosemide 40 Mg Tablet, 40 MG PO BID, (Reported) Hydrocodone/Acetaminophen 1 Each Tablet, 0.5-1 EA PO Q4H PRN for PAIN-MODERATE (5-7), (Reported) Magnesium Oxide 500 Mg Tablet, 500 MG PO BID, (Reported) Pantoprazole Sodium 40 Mg Tablet.dr, 40 MG PO DAILY, (Reported) Potassium Chloride 20 Meq Tablet.er, 20 MEQ PO BID, (Reported) Rifaximin 550 Mg Tablet, 550 MG PO BID, (Reported) Past Ptuxwjr-Lstujy-Wmilxk Hx Patient Social History Alcohol Use: Past History Number of Drinks Today: AA Alcohol Beverage of Choice: Beer Type Used: Cigarettes 2nd Hand Smoke Exposure: No Recent Infectious Disease Expo: No Recent Hopitalizations: No Have you traveled recently?: Yes Seasonal Allergies Seasonal Allergies: No Past Medical History Surgeries: Yes (PARACENTESIS; EGD'S / COLONOSCOPIES) Respiratory: No Cardiac: Yes (DVT RIGHT LEG) Chronic Edema/Swelling, Deep Vein Thrombosis Neurological: No Genitourinary: No Gastrointestinal: Yes (ASCITES) Gastroesophageal Reflux, Liver Disease/Jaundice, Gastrointestinal Bleed, Hem orrhoids, Esophageal Varices, Hepatitis, Polyps, Cirrhosis Musculoskeletal: Yes (LEFT THUMB FX) Fractures Endocrine: No HEENT: No Loss of Vision: Denies Hearing Impairment: Denies Cancer: No Psychosocial: Yes (ALCOHOLISM) Integumentary: No Blood Disorders: Yes (CHRONIC ANEMAI) Adverse Reaction/Blood Tranf: No Family Medical History Patient reports no known family medical history. No Pertinent Family Hx SOCIAL HISTORY: -ETOH ABUSE--BEER + HARD LIQUOR--CLAIMS LAST ETOH WAS 07/2020 -DRUGS--DENIES USE -SMOKES 1 PPD PAST SURGICAL HISTORY: -MULTIPLE EGD'S/COLONOSCOPIES -MULTIPLE PARACENTESIS ADDITIONAL PAST MEDICAL HISTORY: -END STAGE LIVER FAILURE--ALCOHOLISM, CIRRHOSIS, HEPATITIS C -SEVERE ASCITES AND LEG EDEMA -ESOPHAGEAL VARICES, GASTRITIS, HEMORRHOIDS, RECTOSIGMOID POLYP -CHRONIC ANEMIA-MULTIFACTORIAL--ANEMIA OF CHRONIC DISEASE, CHRONIC GI LOSS. WITH MULTIPLE BLOOD TRANSFUSIONS -LIKELY HAD COVID-19 IN JUNE 2020, HE HAD + COVID-19 IG G ANTIBODIES ON TESTING IN AUGUST 2020 Review of Systems Time Seen by Provider: 04:16 Sepsis Event Evaluation Height, Weight, BMI Height: '" Weight: lbs. oz. kg; 28.39 BMI Method: Exam Exam Vital Signs Date Time Temp Pulse Resp B/P (MAP) Pulse Ox O2 Delivery O2 Flow Rate FiO2 01/18/21 06:00 118 16 135/75 (95) 99 Nasal Cannula 2.00 01/18/21 05:00 116 16 140/83 (102) 100 Nasal Cannula 2.00 01/18/21 04:00 101 15 119/85 (96) 100 Nasal Cannula 2.00 01/18/21 03:00 104 16 117/79 (92) 100 Nasal Cannula 2.00 01/18/21 02:45 105 16 129/76 (93) 100 Nasal Cannula 2.00 01/18/21 02:30 107 18 133/83 (100) 100 Nasal Cannula 2.00 01/18/21 02:15 105 14 114/69 (84) 100 Nasal Cannula 2.00 01/18/21 02:00 100 Nasal Cannula 2.00 01/18/21 02:00 107 12 125/73 (90) 100 Nasal Cannula 2.00 01/18/21 01:45 107 17 127/73 (91) 100 Nasal Cannula 2.00 01/18/21 01:35 36.3 112 12 136/72 (93) 100 Nasal Cannula 2.00 01/18/21 01:30 113 01/18/21 01:21 36.9 117 14 121/63 (90) 99 Room Air 01/17/21 22:15 36.9 117 14 115/77 (90) Room Air Height & Weight Height: '" Weight: lbs. oz. kg; 28.39 BMI Method: Capillary Refill: Greater Than 3 Seconds Results Lab Laboratory Tests 01/17/21 22:15 01/18/21 02:30 Assessment/Plan Assessment/Plan Acute Metabolic encephalopathy secondary to elevated ammonia level -Stat rifaxamine -Lactulose Hx of endstage liver cirrhosis with esophageal varices -Start Rocephin for SBP prophylaxis -Currently no fever no leukocytosis ascites s/p paracentesis 3/5 Sinus tachycardia - hyponatremia - Hx of hep C Anemia -Monitor -S/p Transfusion 1wk ago = MINNA STAHL DO Jan 18, 2021 06:41
--- NOTE | 2021-01-18 07:38 | Diagnostic Imaging Report ---
PROCEDURE: CT head wo r/o stroke. TECHNIQUE: Multiple contiguous axial images were obtained through the brain without the use of intravenous contrast. Auto Exposure Controls were utilized during the CT exam to meet ALARA standards for radiation dose reduction. INDICATION: Unresponsive, altered mental status CORRELATION: None FINDINGS: There are diffuse atrophic changes with prominence of the ventricles and sulci. There are scattered areas of decreased attenuation, nonspecific but likely changes of chronic small vessel ischemic disease. Previous bilateral basal ganglia lacunar infarcts. There is otherwise normal barrera-white differentiation. No abnormal areas of attenuation to suggest edema from ischemia. There is no midline shift or mass effect. No evidence for acute intracranial hemorrhage or abnormal extra-axial fluid collection. Bony calvarium is intact. Paranasal sinuses are clear. Mastoid air cells also appear clear. IMPRESSION: 1. No CT evidence for acute intracranial abnormality. 2. Age-related atrophic changes with changes of small vessel ischemic disease. Initial report was provided by [facility]. Dictated by: Dictated on workstation # [id number]
--- NOTE | 2021-01-18 07:41 | Diagnostic Imaging Report ---
INDICATION: Unresponsive, altered mental status. TECHNIQUE: Single view chest 11:06 PM. CORRELATION STUDY: 12/23/2020 FINDINGS: Given projection limited depth of inspiration, heart size and mediastinum appear to be likely within normal limits. There are areas of likely atelectasis at both lung bases. No definitive consolidating infiltrate. IMPRESSION: 1. Hypoventilation with resultant atelectasis of bibasilar lung adams. Dictated by: Dictated on workstation # [id number]
--- NOTE | 2021-01-18 08:24 | History & Physical ---
History of Present Illness History of Present Illness Reason for visit/HPI 65 yo M admitted for hepatic encephalopathy last night. He has had rapid decline since May 2020. He was working full-time but was admitted for cellulitis of his leg in June 2020. Since then he has had COVID (likely in June 2020) with positive antibodies in August 2020. He has also had a DVT in his right leg, was diagnosed with liver failure, likely attributed to etoh use and history of hepatitis C (checked a few months ago no detectable levels of hep c). Last few visit to the ER have been due to ascites and severe anemia likely due to esophageal varices. He was suppose to go to for GI establishment of care but since he does not have insurance and hassle of getting up there he did not go. I have had him on Xifaxan for about 4-5months. It has seemed to be effective I am unsure if he has continue to take it. Last admit was last month (mid-December) for ascites and hgb of 4; he had paracentesis x2 and was transfused 5 units of blood in 2 days. Date of Admission Jan 17, 2021 at 23:30 Date Seen by a Provider: Jan 18, 2021 Time Seen by a Provider: 08:35 I consulted on this patient on 01/18/21 08:18 Attending Physician Will Lamas MD Admitting Physician Will Lamas MD Consult Allergies and Home Medications Allergies Coded Allergies: No Known Drug Allergies (Unverified , 09/09/20) Home Medications Furosemide 40 Mg Tablet, 40 MG PO BID, (Reported) Hydrocodone/Acetaminophen 1 Each Tablet, 0.5-1 EA PO Q4H PRN for PAIN-MODERATE (5-7), (Reported) Magnesium Oxide 500 Mg Tablet, 500 MG PO BID, (Reported) Pantoprazole Sodium 40 Mg Tablet.dr, 40 MG PO DAILY, (Reported) Potassium Chloride 20 Meq Tablet.er, 20 MEQ PO BID, (Reported) Rifaximin 550 Mg Tablet, 550 MG PO BID, (Reported) Patient Home Medication List Home Medication List Reviewed: Yes Past Hglbeie-Ptxcpy-Yntzdb Hx Patient Social History Marrital Status: Alcohol Beverage of Choice: Beer 2nd Hand Smoke Exposure: No Recent Hopitalizations: No Have you traveled recently?: Yes Seasonal Allergies Seasonal Allergies: No Surgeries Yes (PARACENTESIS; EGD'S / COLONOSCOPIES) Respiratory No Cardiovascular Yes (DVT RIGHT LEG) Chronic Edema/Swelling, Deep Vein Thrombosis Neurological No Genitourinary No Gastrointestinal Yes (ASCITES) Gastroesophageal Reflux, Liver Disease/Jaundice, Gastrointestinal Bleed, Hemorrhoids, Esophageal Varices, Hepatitis, Polyps, Cirrhosis Musculoskeletal Yes (LEFT THUMB FX) Fractures Endocrine History of Endocrine Disorders: No HEENT History of HEENT Disorders: No Loss of Vision: Denies Hearing Impairment: Denies Cancer No Psychosocial History of Psychiatric Problem: Yes (ALCOHOLISM) Integumentary History of Skin or Integumenta: No Blood Transfusions History of Blood Disorders: Yes (CHRONIC ANEMAI) Adverse Reaction to a Blood Tr: No Family Medical History Significant Family History: No Pertinent Family Hx Other Significan Family Hx: SOCIAL HISTORY: -ETOH ABUSE--BEER + HARD LIQUOR--CLAIMS LAST ETOH WAS 07/2020 -DRUGS--DENIES USE -SMOKES 1 PPD PAST SURGICAL HISTORY: -MULTIPLE EGD'S/COLONOSCOPIES -MULTIPLE PARACENTESIS ADDITIONAL PAST MEDICAL HISTORY: -END STAGE LIVER FAILURE--ALCOHOLISM, CIRRHOSIS, HEPATITIS C -SEVERE ASCITES AND LEG EDEMA -ESOPHAGEAL VARICES, GASTRITIS, HEMORRHOIDS, RECTOSIGMOID POLYP -CHRONIC ANEMIA-MULTIFACTORIAL--ANEMIA OF CHRONIC DISEASE, CHRONIC GI LOSS. WITH MULTIPLE BLOOD TRANSFUSIONS -LIKELY HAD COVID-19 IN JUNE 2020, HE HAD + COVID-19 IG G ANTIBODIES ON TESTING IN AUGUST 2020 Family Hx: Patient reports no known family medical history. Review of Systems Review of Systems ROS Unable to Obtain: obtunded Physical Exam Vital Signs Vital Signs - First Documented 01/17/21 01/18/21 01/18/21 22:15 01:21 01:35 Temp 36.9 Pulse 117 Resp 14 B/P (MAP) 115/77 (90) Pulse Ox 99 O2 Delivery Room Air O2 Flow Rate 2.00 Capillary Refill : Greater Than 3 Seconds Height, Weight, BMI Height: '" Weight: lbs. oz. kg; 28.39 BMI Method: General Appearance: Chronically ill (thin face, emaciated), Moderate Distress HEENT: PERRL/EOMI (sluggish) Neck: Non Tender, Supple Respiratory: Chest Non Tender, Lungs Clear Cardiovascular: Tachycardia Gastrointestinal: Distended (veins present) Rectal: Deferred Back: Normal Inspection Extremity: Non Tender, Pedal Edema (woody edema, hemosiderin deposition, ) Neurologic/Psychiatric: No Alert, No Oriented x3 Skin: Warm/Dry Assessment/Plan Assessment/Plan Admission Dx acute metabolic encephalopathy due to liver failure Admission Status: Inpatient Order (span 2 midnights) Reason for Inpatient Admission: Admitted for acute metabolic encephalopathy- poor prognosis- given his he could during this hospital stay which would likely be the only reason he does not make it the 2 midnights. Assessment and Plan admitted 01/17/21- lactulose enema -ceftriaxone 1g iv daily for prophylaxis. -Child Tee Score 12- category C - called and reported she felt like her may be in pain and anxious/nervous. Since I had the conversation of him being very ill and may not make it through this hospitalization she wanted to make sure that he is not hurting or restless. So we have added on morphine and lorazepam. Shared decision making utilized. She also decided to make him DNR; will keep open discussion if he comes to and they will discuss it again. Dispo: poor prognosis Problems: (1) Acute metabolic encephalopathy Assessment & Plan: due to hepatic failure (2) Abdominal ascites Assessment & Plan: last paracentesis 01/14/21 (3) Chronic blood loss anemia (4) Esophageal varices in cirrhosis WILL LAMAS MD Jan 18, 2021 08:24
--- NOTE | 2021-01-18 08:32 | ED General ---
General Chief Complaint: Altered Mental Status Stated Complaint: HEPATIC ENCEPHALOPATHY;ELEVATED AMMONIA; Nursing Triage Note: TO ED VIA [facility] FROM HOME. EMS STATE PT HAD COVID IN JUNE AND HAS BEEN IN LIVER FAILURE SINCE. HX ESOPHAGEAL VARICES AND RECEIVED BLOOD LAST WEEK. PT HAS HAD INCREASED ABD SWELLING. UPON ARRIVAL PT EYES OPEN, BUT DOES NOT RESPOND VERBALLY. Nursing Sepsis Screen: No Definite Risk Source of Information: EMS, Old Records Exam Limitations: Other (PT IS SEMI-OBTUNDED AND NOT TALKING OR FOLLOWING COMMANDS) History of Present Illness Date Seen by Provider: Jan 17, 2021 Time Seen by Provider: 22:15 Initial Comments PT ARRIVES VIA EMS FROM HOME FAMILY CALLED EMS FOR PT WITH ALTERED MENTAL STATUS IS UNKNOWN WHEN SYMPTOMS BEGAN, BUT PT REPORTEDLY WENT TO BED AT 1500 TODAY. IS UNKNOWN WHAT HIS CONDITION WAS AT THAT TIME PT IS NOT TALKING OR FOLLOWING COMMANDS ACCUCHECK 114 BY EMS. PT HAD COVID-19 IN JUNE AND WAS HOSPITALIZED. PRIOR TO THAT ADMIT, PT WAS NOT SEEING ANY DOCTORS. PT HAS HAD PROGRESSIVE LIVER FAILURE AND RENAL FAILURE SINCE JUNE. PT ALSO HAS LONG HISTORY OF ALCOHOLISM AND HEPATITIS C. PT HAD RECENT TRANSFUSION FOR SUSPECTED BLEEDING ESOPHAGEAL VARICES. WAS ADMITTED 12/23-12/24/20 FOR SEVERE ANEMIA WITH HGB 4.7. RECEIVED 5 UNITS OF BLOOD AT THAT TIME PT HAS HAD MULTIPLE PARACENTESIS TAPS FOR ASCITES. EMS REPORT THAT FAMILY WAS VERY ADAMANT THAT "NO HEROIC MEASURES BE DONE", BUT THAT NO FORMAL DNR HAS BEEN SIGNED. PCP: DR. Shana KAUFMAN SURGEON: DR. SALDIVAR Allergies and Home Medications Allergies Coded Allergies: No Known Drug Allergies (Unverified , 09/09/20) Home Medications Furosemide 40 Mg Tablet, 40 MG PO BID, (Reported) Magnesium Oxide 500 Mg Tablet, 500 MG PO BID, (Reported) Oxycodone Hcl 5 Mg Tab, 5 MG PO BID PRN for PAIN-SEVERE (8-10) Prescribed by: MICHELLE KAUFMAN on 12/24/20 1529 Pantoprazole Sodium 40 Mg Tablet.dr, 40 MG PO DAILY, (Reported) Potassium Chloride 20 Meq Tablet.er, 20 MEQ PO BID, (Reported) Rifaximin 550 Mg Tablet, 550 MG PO BID, (Reported) Patient Home Medication List Home Medication List Reviewed: Yes Review of Systems Review of Systems Constitutional: other (UNABLE TO ANSWER) Past Ngqietb-Ukhrhx-Coimyq Hx Past Med/Social Hx: Reviewed and Corrections made Patient Social History Alcohol Use: Past History Number of Drinks Today: AA Alcohol Beverage of Choice: Beer Type Used: Cigarettes 2nd Hand Smoke Exposure: No Recent Infectious Disease Expo: No Recent Hopitalizations: No Have you traveled recently?: Yes Seasonal Allergies Seasonal Allergies: No Past Medical History Surgeries: Yes (PARACENTESIS; EGD'S / COLONOSCOPIES) Respiratory: No Cardiac: Yes (DVT RIGHT LEG) Chronic Edema/Swelling, Deep Vein Thrombosis Neurological: No Genitourinary: No Gastrointestinal: Yes (ASCITES) Gastroesophageal Reflux, Liver Disease/Jaundice, Gastrointestinal Bleed, Hemorrhoids, Esophageal Varices, Hepatitis, Polyps, Cirrhosis Musculoskeletal: Yes (LEFT THUMB FX) Fractures Endocrine: No HEENT: No Loss of Vision: Denies Hearing Impairment: Denies Cancer: No Psychosocial: Yes (ALCOHOLISM) Integumentary: No Blood Disorders: Yes (CHRONIC ANEMAI) Adverse Reaction/Blood Tranf: No Family Medical History Patient reports no known family medical history. No Pertinent Family Hx SOCIAL HISTORY: -ETOH ABUSE--BEER + HARD LIQUOR--CLAIMS LAST ETOH WAS 07/2020 -DRUGS--DENIES USE -SMOKES 1 PPD PAST SURGICAL HISTORY: -MULTIPLE EGD'S/COLONOSCOPIES -MULTIPLE PARACENTESIS ADDITIONAL PAST MEDICAL HISTORY: -END STAGE LIVER FAILURE--ALCOHOLISM, CIRRHOSIS, HEPATITIS C -SEVERE ASCITES AND LEG EDEMA -ESOPHAGEAL VARICES, GASTRITIS, HEMORRHOIDS, RECTOSIGMOID POLYP -CHRONIC ANEMIA-MULTIFACTORIAL--ANEMIA OF CHRONIC DISEASE, CHRONIC GI LOSS. WITH MULTIPLE BLOOD TRANSFUSIONS -LIKELY HAD COVID-19 IN JUNE 2020, HE HAD + COVID-19 IG G ANTIBODIES ON TESTING IN AUGUST 2020 Physical Exam Vital Signs Vital Signs - First Documented 01/17/21 22:15 Temp 36.9 Pulse 117 Resp 14 B/P (MAP) 115/77 (90) O2 Delivery Room Air Capillary Refill : Greater Than 3 Seconds Height, Weight, BMI Height: '" Weight: lbs. oz. kg; 28.39 BMI Method: General Appearance: Other (PT WITH MARKED ASCITES. PT SEMI-OBTUNDED--EYES ARE OPEN, BLINKS VERY SLOWLY AND HAS A BLANK STARE AT CELING. IS NOT TALKING OR ATTEMPTING TO COMMUNICATE OR FOLLOW ANY COMMANDS OR ACKNOWLEDGE THAT ANYONE IS IN ROOM. ) Respiratory: Normal Breath Sounds, No Accessory Muscle Use, No Respiratory Distress Cardiovascular: Tachycardia Gastrointestinal: Other (ABDOMEN WITH MARKED ASCITES, WITH DRESSINGS OVER UMBILICUS AND LLQ) Extremity: Other (4+ EDEMA OF BILATERAL LOWER EXTREMITIES WITH EXTENSIVE CHRONIC VENOUS STASIS CHANGES AND WOODY INDURATION. ) Neurologic/Psychiatric: Other ( ABOVE) Skin: Warm/Dry, Pallor (SALLOW) Focused Exam Lactate Level 01/17/21 22:15: Lactic Acid Level 1.47 Lactic Acid Level Laboratory Tests Test 01/17/21 22:15 Lactic Acid Level 1.47 MMOL/L (0.50-2.00) Procedures/Interventions Suture Size: 4-0 Progress/Results/Core Measures Suspected Sepsis Recent Fever Within 48 Hours: No Infection Criteria Present: None New/Unexplained Altered Menta: Yes Sepsis Screen: No Definite Risk SIRS Temperature: Pulse: 113 Respiratory Rate: 14 Laboratory Tests 01/17/21 22:15: White Blood Count 9.9 Blood Pressure 121 /63 Mean: 95 01/17/21 22:15: Lactic Acid Level 1.47 Laboratory Tests 01/17/21 22:15: Creatinine 1.17, INR Comment 1.4, Platelet Count 110L, Total Bilirubin 1.8H Results/Orders Lab Results Laboratory Tests Test 01/17/21 22:15 01/17/21 22:30 Range/Units White Blood Count 9.9 4.3-11.0 10^3/uL Red Blood Count 3.41 L 4.30-5.52 10^6/uL Hemoglobin 9.3 L 13.3-17.7 g/dL Hematocrit 29 L 40-54 % Mean Corpuscular Volume 86 80-99 fL Mean Corpuscular Hemoglobin 27 25-34 pg Mean Corpuscular Hemoglobin Concent 32 32-36 g/dL Red Cell Distribution Width 24.9 H 10.0-14.5 % Platelet Count 110 L 130-400 10^3/uL Mean Platelet Volume 9.5 9.0-12.2 fL Immature Granulocyte % (Auto) 0 % Neutrophils (%) (Auto) 85 H 42-75 % Lymphocytes (%) (Auto) 8 L 12-44 % Monocytes (%) (Auto) 7 0-12 % Eosinophils (%) (Auto) 1 0-10 % Basophils (%) (Auto) 0 0-10 % Neutrophils # (Auto) 8.4 H 1.8-7.8 10^3/uL Lymphocytes # (Auto) 0.8 L 1.0-4.0 10^3/uL Monocytes # (Auto) 0.6 0.0-1.0 10^3/uL Eosinophils # (Auto) 0.1 0.0-0.3 10^3/uL Basophils # (Auto) 0.0 0.0-0.1 10^3/uL Immature Granulocyte # (Auto) 0.0 0.0-0.1 10^3/uL Neutrophils % (Manual) 89 % Lymphocytes % (Manual) 2 % Monocytes % (Manual) 7 % Eosinophils % (Manual) 2 % Blood Morphology Comment NORMAL Prothrombin Time 17.5 H 12.2-14.7 SEC INR Comment 1.4 0.8-1.4 Activated Partial Thromboplast Time 40 H 24-35 SEC Sodium Level 133 L 135-145 MMOL/L Potassium Level 4.2 3.6-5.0 MMOL/L Chloride Level 102 98-107 MMOL/L Carbon Dioxide Level 23 21-32 MMOL/L Anion Gap 8 5-14 MMOL/L Blood Urea Nitrogen 20 H 7-18 MG/DL Creatinine 1.17 0.60-1.30 MG/DL Estimat Glomerular Filtration Rate > 60 BUN/Creatinine Ratio 17 Glucose Level 102 70-105 MG/DL Lactic Acid Level 1.47 0.50-2.00 MMOL/L Calcium Level 7.7 L 8.5-10.1 MG/DL Corrected Calcium 9.1 8.5-10.1 MG/DL Magnesium Level 2.3 1.6-2.4 MG/DL Total Bilirubin 1.8 H 0.1-1.0 MG/DL Aspartate Amino Transf (AST/SGOT) 41 H 5-34 U/L Alanine Aminotransferase (ALT/SGPT) 24 0-55 U/L Alkaline Phosphatase 88 40-136 U/L Ammonia 199 H 11-32 UMOL/L Troponin I < 0.028 <0.028 NG/ML Total Protein 6.6 6.4-8.2 GM/DL Albumin 2.2 L 3.2-4.5 GM/DL Amylase Level 112 25-125 U/L Lipase 50 8-78 U/L TSH [place] Testing 0.90 0.35-4.94 UIU/ML Acetaminophen Level < 10 L 10-30 UG/ML Serum Alcohol < 10 <10 MG/DL Urine Color YELLOW Urine Clarity CLEAR Urine pH 6.5 5-9 Urine Specific [place] 1.015 L 1.016-1.022 Urine Protein NEGATIVE NEGATIVE Urine Glucose (UA) NEGATIVE NEGATIVE Urine Ketones NEGATIVE NEGATIVE Urine Nitrite NEGATIVE NEGATIVE Urine Bilirubin NEGATIVE NEGATIVE Urine Urobilinogen 0.2 < = 1.0 MG/DL Urine Leukocyte Esterase NEGATIVE NEGATIVE Urine RBC (Auto) TRACE-I NEGATIVE Urine RBC NONE /HPF Urine WBC NONE /HPF Urine Squamous Epithelial Cells NONE /HPF Urine Crystals NONE /LPF Urine Bacteria NEGATIVE /HPF Urine Casts NONE /LPF Urine Mucus NEGATIVE /LPF Urine Culture Indicated NO Blood Gas Puncture Site LEFT RADIAL Blood Gas Patient Temperature 36.9 Arterial Blood pH 7.55 H 7.37-7.43 Arterial Blood Partial Pressure CO2 29 L 35-45 MMHG Arterial Blood Partial Pressure O2 85 79-93 MMHG Arterial Blood HCO3 25 23-27 MMOL/L Arterial Blood Total CO2 26.2 21.0-31.0 MMOL/L Arterial Blood Oxygen Saturation 98 94-100 % Arterial Blood Base Excess 2.8 H -2.5-2.5 MMOL/L Alex Test YES-POS Blood Gas Ventilator Setting NO Blood Gas Inspired Oxygen ROOM AIR Urine Opiates Screen POSITIVE H NEGATIVE Urine Oxycodone Screen NEGATIVE NEGATIVE Urine Methadone Screen NEGATIVE NEGATIVE Urine Propoxyphene Screen NEGATIVE NEGATIVE Urine Barbiturates Screen NEGATIVE NEGATIVE Ur Tricyclic Antidepressants Screen NEGATIVE NEGATIVE Urine Phencyclidine Screen NEGATIVE NEGATIVE Urine Amphetamines Screen NEGATIVE NEGATIVE Urine Methamphetamines Screen NEGATIVE NEGATIVE Urine Benzodiazepines Screen POSITIVE H NEGATIVE Urine Cocaine Screen NEGATIVE NEGATIVE Urine Cannabinoids Screen NEGATIVE NEGATIVE My Orders Orders - MARÍA ZARCO DO Ed Iv/Invasive Line Start (01/17/21 22:18) Ekg Tracing (01/17/21 22:18) Catheter(Urinary) Insert & Ass 03,15 (01/17/21 22:18) O2 (01/17/21 22:18) Monitor-Rhythm Ecg Trace Only (01/17/21 22:18) Ct Head Wo-R/O Stroke (01/17/21 22:18) Chest 1 View, Ap/Pa Only (01/17/21 22:18) Acetaminophen (01/17/21 22:18) Alcohol (01/17/21 22:18) Ammonia (01/17/21 22:18) Amylase (01/17/21 22:18) Arterial Blood Gas (01/17/21 22:18) Cbc With Automated Diff (01/17/21 22:18) Comprehensive Metabolic Panel (01/17/21 22:18) Drug Screen Stat (Urine) (01/17/21 22:18) Lactic Acid Analyzer (01/17/21 22:18) Lipase (01/17/21 22:18) Magnesium (01/17/21 22:18) Protime With Inr (01/17/21 22:18) Partial Thromboplastin Time (01/17/21 22:18) Thyroid Analyzer (01/17/21 22:18) Ua Culture If Indicated (01/17/21 22:18) Troponin I (01/17/21 22:18) Manual Differential (01/17/21 22:15) Lactulose Oral Solution (Enulose Oral So (01/17/21 23:15) Lactulose Syrup (Pour Bottle) (Cephulac (01/17/21 23:45) Vital Signs/I&O 01/17/21 22:15 Temp 36.9 Pulse 117 Resp 14 B/P (MAP) 115/77 (90) O2 Delivery Room Air Capillary Refill : Greater Than 3 Seconds Blood Pressure Mean: 95 Progress Note : Progress Note NO DETERIORATION IN PT'S CONDITION DURING ER STAY ECG Initial ECG Impression Date: Jan 17, 2021 Initial ECG Impression Time: 22:31 Initial ECG Rate: 114 Initial ECG Rhythm: S.Tach (LOW VOLTAGE) Initial ECG Impression: Nonspecific Changes Diagnostic Imaging Comments CXR--BIBASIILAR ATELECTASIS AND HYPOVENTILATION, PENDING RADIOLOGIST REVIEW CT HEAD--NO ACUTE FINDINGS PER [facility] VIA PHONE AND FAX AT [phone] Reviewed: Reviewed by Nm Departure Communication (Admissions) [phone]--ATTEMPTING TO CONTACT DR. Shana KAUFMAN. MESSAGE LEFT ON CELL 2353--ATTEMPTING TO CONTACT DR. Shana KAUFMAN. MESSAGE LEFT ON CELL [phone]--SPOKE WITH DR. KAUFMAN. ACCEPTS PT FOR ADMIT. HE STATES THAT HE HAS REFERRED THIS PT TO FOR THIS PROBLEM, WELL SUPECTED ESOPHAGEAL VARICES, AND PT CANCELLED THE APPOINTMENTS. Impression Primary Impression: Hepatic encephalopathy Additional Impressions: Chronic liver failure ELEVATED AMMONIA LEVEL Hepatitis C Chronic anemia MARKED ASCITES Disposition: ADMITTED INPATIENT Condition: Stable/Unchanged Admissions Decision to Admit Reason: Admit from ER (General) Decision to Admit/Date: Jan 17, 2021 Time/Decision to Admit Time: 23:30 Departure-Patient Inst. Referrals: MICHELLE KAUFMAN MD (PCP) Primary Care Physician MARÍA ZARCO 9, 2021 08:32
[2021-01-18] MEDS: RIFAXIMIN 550 MG TABLET (XIFAXAN) PO SCH ×2 (08:56→20:25)
[2021-01-18] MEDS: LACTULOSE 10 GM/15 ML 30 ML POUR BOTTLE FOR ENEMA PR SCH ×2 (09:04→14:24)
[2021-01-18] MEDS: cefTRIAXone FOR IV USE 1,000 MG in WATER (STERILE) FOR INJECTION 10 ML IV SCH (09:04)
[2021-01-18] MEDS ORDERED: HYDR-3820 PO (12:22)
[2021-01-18] MEDS ORDERED: morphine INJ 4 MG/ML 1 ML (VIAL/SYRINGE) ONE (12:41)
[2021-01-18] MEDS: morphine INJ 4 MG/ML 1 ML (VIAL/SYRINGE) IVP PRN ×2 (12:50→20:26)
[2021-01-19] MEDS: morphine INJ 4 MG/ML 1 ML (VIAL/SYRINGE) IVP PRN ×4 (00:40→20:49)
[2021-01-19 03:18] LABS: BASOPHILS % (AUTO) 0 % (0-10); EOSINOPHILS # (AUTO) 0.1 10^3/uL (0.0-0.3); EOSINOPHILS % (AUTO) 1 % (0-10); HEMATOCRIT 27 % (40-54); HEMOGLOBIN 8.5 g/dL (13.3-17.7); LYMPHOCYTES % (AUTO) 11 % (12-44); MEAN CORPUSCULAR HEMOGLOBIN 28 pg (25-34); MEAN CORPUSCULAR HGB CONC 32 g/dL (32-36); MEAN CORPUSCULAR VOLUME 87 fL (80-99); MEAN PLATELET VOLUME 9.5 fL (9.0-12.2); MONOCYTES # (AUTO) 0.9 10^3/uL (0.0-1.0); MONOCYTES % (AUTO) 10 % (0-12); NEUTROPHILS # (AUTO) 7.1 10^3/uL (1.8-7.8); NEUTROPHILS % (AUTO) 78 % (42-75); PLATELET COUNT 94 10^3/uL (130-400); WHITE BLOOD COUNT 9.2 10^3/uL (4.3-11.0)
[2021-01-19 03:25] LABS: CHLORIDE 104 MMOL/L (98-107); POTASSIUM 3.6 MMOL/L (3.6-5.0); SODIUM 132 MMOL/L (135-145)
[2021-01-19 03:26] LABS: CALCIUM 7.6 MG/DL (8.5-10.1); GLUCOSE 103 MG/DL (70-105)
[2021-01-19 03:28] LABS: CARBON DIOXIDE 21 MMOL/L (21-32)
[2021-01-19 03:30] LABS: CREATININE SERUM 0.86 MG/DL (0.60-1.30); GFR ESTIMATED > 60; PHOSPHORUS 2.7 MG/DL (2.3-4.7)
[2021-01-19 03:31] LABS: BUN/CREATININE RATIO 20
[2021-01-19 03:33] LABS: MAGNESIUM 2.2 MG/DL (1.6-2.4)
--- NOTE | 2021-01-19 04:18 | Pulmonary Progress Note ---
Subjective Time Seen by a Provider: 04:17 Sepsis Event Evaluation Height, Weight, BMI Height: '" Weight: lbs. oz. kg; 28.39 BMI Method: Focused Exam Lactate Level 01/17/21 22:15: Lactic Acid Level 1.47 Exam Exam Vital Signs Date Time Temp Pulse Resp B/P (MAP) Pulse Ox O2 Delivery O2 Flow Rate FiO2 01/19/21 00:40 37.1 01/19/21 00:00 36.3 114 107/67 (80) 99 Room Air 01/19/21 00:00 98 Room Air 01/18/21 23:00 116 122/79 (92) 98 Room Air 01/18/21 22:00 117 128/83 (98) 93 Room Air 01/18/21 21:00 118 115/62 (78) 100 Room Air 01/18/21 20:18 37.2 01/18/21 20:00 116 105/61 (72) 100 Room Air 01/18/21 20:00 98 Room Air 01/18/21 19:00 118 01/18/21 19:00 118 122/66 (87) 97 Room Air 01/18/21 18:00 114 111/60 (77) 98 Room Air 01/18/21 17:00 112 113/66 (82) 96 Room Air 01/18/21 16:22 98 Room Air 01/18/21 16:00 114 109/62 (78) 99 Room Air 01/18/21 15:58 37.1 01/18/21 15:00 134 30 135/75 (95) 83 Room Air 01/18/21 14:00 125 19 113/74 (87) 86 Room Air 01/18/21 13:00 124 19 123/70 (87) 100 Room Air 01/18/21 12:48 126 01/18/21 12:39 37.6 01/18/21 12:00 100 Room Air 01/18/21 12:00 128 20 143/66 (91) 99 Room Air 01/18/21 11:00 126 19 132/73 (92) 100 Room Air 01/18/21 10:00 138 24 147/81 (103) 99 Room Air 01/18/21 09:00 138 16 154/117 (129) 98 Room Air 01/18/21 09:00 38.2 01/18/21 08:00 98 Room Air 01/18/21 08:00 138 22 152/80 (104) 96 Room Air 01/18/21 07:55 Room Air 01/18/21 07:00 135 19 163/93 (116) 97 Nasal Cannula 2.00 01/18/21 06:29 113 01/18/21 06:00 118 16 135/75 (95) 99 Nasal Cannula 2.00 01/18/21 05:00 116 16 140/83 (102) 100 Nasal Cannula 2.00 I & O 01/19/21 07:00 Intake Total 2510 ml Output Total 600 ml Balance 1910 ml Height & Weight Height: '" Weight: lbs. oz. kg; 28.39 BMI Method: General Appearance: Other (PT WITH MARKED ASCITES. PT SEMI-OBTUNDED--EYES ARE O PEN, BLINKS VERY SLOWLY AND HAS A BLANK STARE AT CELING. IS NOT TALKING OR ATTEMPTING TO COMMUNICATE OR FOLLOW ANY COMMANDS OR ACKNOWLEDGE THAT ANYONE IS IN ROOM. ) Respiratory: Normal Breath Sounds, No Accessory Muscle Use, No Respiratory Distress Cardiovascular: Tachycardia Capillary Refill: Greater Than 3 Seconds Extremity: Other (4+ EDEMA OF BILATERAL LOWER EXTREMITIES WITH EXTENSIVE CHRONIC VENOUS STASIS CHANGES AND WOODY INDURATION. ) Neurologic/Psychiatric: Other ( ABOVE) Skin: Warm/Dry, Pallor (SALLOW) Results Lab Laboratory Tests 01/17/21 22:15 01/18/21 02:30 01/19/21 03:04 Assessment/Plan Assessment/Plan Acute Metabolic encephalopathy secondary to elevated ammonia level - improving -Continue rifaxamine Hx of endstage liver cirrhosis with esophageal varices -Continue Rocephin for SBP prophylaxis -Currently no fever no leukocytosis -Will give albumin 25gms x 1 ascites s/p paracentesis 3/5 Sinus tachycardia - hyponatremia - Hx of hep C Anemia -Monitor -S/p Transfusion 1wk ago I will sign off once pt is transferred out of ICU. Please call with any questions or concerns. MINNA STAHL DO Jan 19, 2021 04:18
[2021-01-19] MEDS ORDERED: ALBUMIN 25% 25 GM/100 ML 100 ML IV ONE (04:30)
[2021-01-19] MEDS: D5 LR IV SOLUTION 1,000 ML IV SCH ×3 (04:43→20:49)
[2021-01-19] MEDS: cefTRIAXone FOR IV USE 1,000 MG in WATER (STERILE) FOR INJECTION 10 ML IV SCH (06:55)
[2021-01-19] MEDS: RIFAXIMIN 550 MG TABLET (XIFAXAN) PO SCH ×2 (07:53→20:49)
--- NOTE | 2021-01-19 08:35 | Diagnostic Imaging Report ---
INDICATION: Hepatic encephalopathy. TIME OF EXAM: 1:19 AM Correlation is made with prior chest from 01/17/2021. FINDINGS: Heart size is stable. There is some central congestion. Appears to be some mild bilateral perihilar and bibasilar atelectasis. There is no effusion or pneumothorax. IMPRESSION: Stable chest since 2 days earlier. Dictated by: Dictated on workstation # [id number]
[2021-01-19] MEDS: LORazepam INJ 2 MG/ML (ATIVAN) VIAL IVP PRN ×2 (13:37→20:49)
--- NOTE | 2021-01-19 14:13 | Progress Note-Pre Operative ---
Pre-Operative Progress Note H&P Reviewed The H&P was reviewed, patient examined and no changes noted. Date Seen by Provider: Jan 19, 2021 Time Seen by Provider: 14:30 Date H&P Reviewed: Jan 19, 2021 Time H&P Reviewed: 14:30 Pre-Operative Diagnosis: ESLD with recurrent sx ascites ASAEL SALDIVAR MD Jan 19, 2021 14:13
--- NOTE | 2021-01-19 14:21 | CONSULTATION REPORT ---
DATE OF SERVICE: 01/19/2021 ATTENDING PRIMARY CARE PHYSICIAN: Dr. Will Lamas. HISTORY OF PRESENT ILLNESS: The patient is a 65-year-old male known to us. He was found to be anemic and developed rectal bleeding as well as ascites in the fall of 2019. He had stated that he had developed right lower extremity DVT and was started on anticoagulants and developed rectal bleeding. We had proceeded with an EGD and colonoscopy on 09/15/2020 and was found to have a grade III esophageal varices, moderate gastritis as well as chronic stage III internal hemorrhoids and a small polyp at the rectosigmoid junction, 2 mm in size. He had also undergone a paracentesis. Since that time, he has had multiple paracentesis for symptomatic ascites and it does appear that he is in end-stage liver disease. He has been requiring a therapeutic paracentesis on a much more frequent basis lately and has returned with significant ascites and we will proceed with placement of a tunneled peritoneal drainage catheter for symptomatic relief. PAST MEDICAL HISTORY: History of DVT, right lower extremity, alcohol abuse, ascites, end-stage liver disease, esophageal varices, hemorrhoids, caput medusae. PAST SURGICAL HISTORY: None. ALLERGIES: No known drug allergies. MEDICATIONS: Furosemide 40 mg daily, spironolactone daily, potassium 20 mEq daily. SOCIAL HISTORY: Positive smoking 50 pack years, did drink daily alcohol, three beers daily as well as occasional whiskey. FAMILY HISTORY: Noncontributory. VITAL SIGNS: Temperature 36.9, blood pressure 114/66, pulse 113, pulse ox 100% on room air. REVIEW OF SYSTEMS: A well-nourished, thin-appearing male with significant abdominal distention and ascites as well as caput medusae. He is not currently experiencing any shortness of breath or difficulty breathing. No chest pain, palpitations, diaphoresis. No nausea or vomiting, no diarrhea or constipation. No fever or chills, no recent inadvertent weight loss. All other review of systems negative. PHYSICAL EXAMINATION: CHEST: Scattered wheezes bilaterally. HEART: Regular, no murmurs. EXTREMITIES: +1/3 bilateral lower extremity edema, negative Homans sign. HEENT: No scleral icterus. NECK: No cervical lymphadenopathy. ABDOMEN: Severely distended with a positive fluid shift wave. SKIN: Warm, dry. LABORATORY DATA: WBC 9.8, hemoglobin 8.5, hematocrit 27, platelets 94. BUN 17, creatinine 0.86. ASSESSMENT AND PLAN: A 65-year-old male with end-stage liver disease with history of esophageal varices, hemorrhoids as well as caput medusae. He also has recurrent symptomatic ascites and has required more frequent paracentesis and we will now proceed with placement of a tunneled peritoneal catheter for more frequent drainage and symptomatic relief. Job ID: [id number] DocumentID: [id number] Dictated Date: 01/19/2021 14:08:47 Dryer Operator Date: 01/19/2021 14:20:30 Dictated By: ASAEL SALDIVAR MD
--- NOTE | 2021-01-19 23:22 | Progress Note ---
Subjective Subjective Date Seen by Provider: Jan 19, 2021 Time Seen by Provider: 06:45 Patient started to wake up yesterday. Awake this AM and conversing. A little confused. Discussed with him his code status that his helped decide yesterday. Patient voiced understanding. Will revisit the topic again tomorrow to make sure he understands. He does understand he is continuing to decline. Review of Systems General: No Chills, No Night Sweats HEENT: No Head Aches Pulmonary: Dyspnea, Cough Cardiovascular: No: Chest Pain Gastrointestinal: Abdominal Pain; No: Nausea, Vomiting Genitourinary: No Dysuria Neurological: Weakness Objective Exam Vital Signs Vital Signs - First Documented 01/17/21 01/18/21 01/18/21 22:15 01:21 01:35 Temp 36.9 Pulse 117 Resp 14 B/P (MAP) 115/77 (90) Pulse Ox 99 O2 Delivery Room Air O2 Flow Rate 2.00 Capillary Refill : Greater Than 3 Seconds General Appearance: Chronically ill (thin face, emaciated), Moderate Distress HEENT: PERRL/EOMI (sluggish) Neck: Non Tender, Supple Respiratory: Chest Non Tender, Lungs Clear Cardiovascular: Tachycardia Gastrointestinal: Distended (veins present) Rectal: Deferred Back: Normal Inspection Extremity: Non Tender, Pedal Edema (woody edema, hemosiderin deposition, ) Neurologic/Psychiatric: No Alert, No Oriented x3 Skin: Warm/Dry Results Lab Laboratory Tests 01/19/21 03:04: White Blood Count 9.2, Red Blood Count 3.08L, Hemoglobin 8.5L, Hematocrit 27L, Mean Corpuscular Volume 87, Mean Corpuscular Hemoglobin 28, Mean Corpuscular Hemoglobin Concent 32, Red Cell Distribution Width 25.1H, Platelet Count 94L, Mean Platelet Volume 9.5, Immature Granulocyte % (Auto) 0, Neutrophils (%) (Auto) 78H, Lymphocytes (%) (Auto) 11L, Monocytes (%) (Auto) 10, Eosinophils (%) (Auto) 1, Basophils (%) (Auto) 0, Neutrophils # (Auto) 7.1, Lymphocytes # (Auto) 1.0, Monocytes # (Auto) 0.9, Eosinophils # (Auto) 0.1, Basophils # (Auto) 0.0, Immature Granulocyte # (Auto) 0.0, Sodium Level 132L, Potassium Level 3.6, Chloride Level 104, Carbon Dioxide Level 21, Anion Gap 7, Blood Urea Nitrogen 17, Creatinine 0.86, Estimat Glomerular Filtration Rate > 60, BUN/Creatinine Ratio 20, Glucose Level 103, Calcium Level 7.6L, Phosphorus Level 2.7, Magnesium Level 2.2 Microbiology 01/18/21 MRSA Screen - Final, Complete MRSA not isolated Assessment/Plan Assessment/Plan Admission Dx acute metabolic encephalopathy due to liver failure Assessment and Plan admitted 01/17/21- lactulose enema -ceftriaxone 1g iv daily for prophylaxis. -Child Tee Score 12- category C 01/19/21- awake. continue rocephin. Dr. Gomes consulted for putting a catheter in to help with paracentesis. Palliative care consult initiated. stopped lactulose. restarted xifaxan. mentation is improving with ammonia trending down. Dispo: poor overall prognosis Problems: (1) Acute metabolic encephalopathy Assessment & Plan: due to hepatic failure (2) Abdominal ascites Assessment & Plan: last paracentesis 01/14/21 (3) Chronic blood loss anemia (4) Esophageal varices in cirrhosis Admission Dx acute metabolic encephalopathy due to liver failure Clinical Quality Measures Admission Status Admission Dx acute metabolic encephalopathy due to liver failure MICHELLE KAUFMAN MD Jan 19, 2021 23:22
[2021-01-20 03:56] LABS: BASOPHILS # (AUTO) 0.1 10^3/uL (0.0-0.1); BASOPHILS % (AUTO) 1 % (0-10); EOSINOPHILS # (AUTO) 0.2 10^3/uL (0.0-0.3); EOSINOPHILS % (AUTO) 3 % (0-10); HEMATOCRIT 31 % (40-54); HEMOGLOBIN 9.4 g/dL (13.3-17.7); LYMPHOCYTES # (AUTO) 0.8 10^3/uL (1.0-4.0); LYMPHOCYTES % (AUTO) 11 % (12-44); MEAN CORPUSCULAR HEMOGLOBIN 27 pg (25-34); MEAN CORPUSCULAR HGB CONC 31 g/dL (32-36); MEAN CORPUSCULAR VOLUME 90 fL (80-99); MEAN PLATELET VOLUME 10.1 fL (9.0-12.2); MONOCYTES # (AUTO) 0.8 10^3/uL (0.0-1.0); MONOCYTES % (AUTO) 11 % (0-12); NEUTROPHILS # (AUTO) 5.7 10^3/uL (1.8-7.8); NEUTROPHILS % (AUTO) 74 % (42-75); PLATELET COUNT 123 10^3/uL (130-400); WHITE BLOOD COUNT 7.7 10^3/uL (4.3-11.0)
[2021-01-20 04:18] LABS: BUN/CREATININE RATIO 18; CARBON DIOXIDE 22 MMOL/L (21-32); CHLORIDE 105 MMOL/L (98-107); CREATININE SERUM 0.84 MG/DL (0.60-1.30); GFR ESTIMATED > 60; GLUCOSE 110 MG/DL (70-105); MAGNESIUM 2.1 MG/DL (1.6-2.4); PHOSPHORUS 2.6 MG/DL (2.3-4.7); POTASSIUM 3.8 MMOL/L (3.6-5.0); SODIUM 134 MMOL/L (135-145)
[2021-01-20] MEDS: D5 LR IV SOLUTION 1,000 ML IV SCH ×4 (06:30→23:40)
--- NOTE | 2021-01-20 07:31 | Diagnostic Imaging Report ---
EXAMINATION: Chest radiograph, portable AP view. DATE: 01/20/2021 2:42 AM INDICATION: 65-year-old male, hepatic encephalopathy. COMPARISON: January 18, 2021. FINDINGS: Heart size and mediastinal contours are unchanged. There is no identified pneumothorax. There is no large pleural effusion. Lung volumes are low. There is no identified focal airspace consolidation. IMPRESSION: 1. Low lung volumes without identified acute cardiopulmonary abnormality. Dictated by: Dictated on workstation # [id number]
[2021-01-20] MEDS: RIFAXIMIN 550 MG TABLET (XIFAXAN) PO SCH ×2 (08:44→20:34)
[2021-01-20] MEDS: LORazepam INJ 2 MG/ML (ATIVAN) VIAL IVP PRN (08:44)
[2021-01-20] MEDS: cefTRIAXone FOR IV USE 1,000 MG in WATER (STERILE) FOR INJECTION 10 ML IV SCH (08:44)
[2021-01-20] MEDS: morphine INJ 4 MG/ML 1 ML (VIAL/SYRINGE) IVP PRN ×2 (08:44→20:49)
[2021-01-20] MEDS ORDERED: LORazepam INJ 2 MG/ML (ATIVAN) VIAL IVP PRN (12:45)
[2021-01-20] MEDS ORDERED: LIDOCAINE/EPI 1%-1:100,000 (XYLOCAINE) 50 ML ONE (12:57)
[2021-01-20] MEDS ORDERED: proPOfol 200 MG/20 ML (DIPRIVAN) VIAL IV ONE (13:07)
[2021-01-20] MEDS ORDERED: KETAMINE/NaCl 50 MG/5 ML SYRINGE (ED ONLY) ONE (13:08)
[2021-01-20] MEDS ORDERED: MIDAZOLAM 2 MG/2 ML (VERSED) VIAL ONE (13:08)
[2021-01-20] MEDS ORDERED: LACTATED RINGERS 1,000 ML IV PRN (13:45)
[2021-01-20] MEDS ORDERED: ceFAZolin INJECTION 1,000 MG ONE (13:47)
--- NOTE | 2021-01-20 14:12 | Progress Note-Post Operative ---
Post-Operative Progess Note Surgeon (s)/Poultry Offal Worker (s) Surgeon ASAEL SALDIVAR MD Poultry Offal Worker: orqu[employer] fay CALL CENTER SPECIALIST Pre-Operative Diagnosis ESLD with recurrent sx ascites Post-Operative Diagnosis same Procedure & Operative Findings Date of Procedure 01/20/21 Procedure Performed/Findings placement tunneled peritoneal catheter. Anesthesia Type mac with local. Estimated Blood Loss Estimated blood loss (mL): minimal Specimens/Packing Specimens Removed none ASAEL SALDIVAR MD Jan 20, 2021 14:12
[2021-01-20 14:21] VITALS: BP 134/87
--- NOTE | 2021-01-20 14:25 | Anesthesia-General Post-Op ---
MAC Patient Condition Mental Status/LOC: Same as Preop Cardiovascular: Satisfactory Nausea/Vomiting: Absent Respiratory: Satisfactory Pain: Controlled Complications: Absent Post Op Complications Complications None Follow Up Care/Instructions Patient Instructions None needed. Anesthesiology Discharge Order Discharge Order Patient is doing well, no complaints, stable vital signs, no apparent adverse anesthesia problems. No complications reported per nursing. TESS KELLY CRNA Jan 20, 2021 14:25
[2021-01-20 14:30] VITALS: BP 136/87
[2021-01-20] MEDS ORDERED: fentaNYL INJECTION 100 MCG/2 ML AMP IVP ONE (14:30)
[2021-01-20 14:40] VITALS: BP 140/86
[2021-01-20 14:50] VITALS: BP 130/86
--- NOTE | 2021-01-20 15:50 | Progress Note ---
Subjective Subjective Date Seen by Provider: Jan 20, 2021 Time Seen by Provider: 08:35 Patient awake. Resting. NPO. Waiting for the catheter placement for symptomatic drainage of ascites. No overnight events. Review of Systems General: No Chills, No Night Sweats HEENT: No Head Aches Pulmonary: Dyspnea, Cough Cardiovascular: No: Chest Pain Gastrointestinal: Abdominal Pain; No: Nausea, Vomiting Genitourinary: No Dysuria Neurological: Weakness Objective Exam Vital Signs Vital Signs Date Time Temp Pulse Resp B/P (MAP) Pulse Ox O2 Delivery O2 Flow Rate FiO2 01/20/21 15:00 125/76 (92) Room Air 01/20/21 14:55 Room Air 01/20/21 14:50 37.1 15 130/86 (101) 96 Room Air 01/20/21 14:40 OxyMask 2 01/20/21 14:40 15 140/86 (104) 100 OxyMask 2 01/20/21 14:30 OxyMask 4 01/20/21 14:30 14 136/87 (103) 100 OxyMask 4 01/20/21 14:21 OxyMask 10 01/20/21 14:21 37.1 16 134/87 (103) 97 OxyMask 10 01/20/21 14:00 112 95 Room Air 01/20/21 13:00 112 115/75 (88) 94 Room Air 01/20/21 12:55 114 01/20/21 12:00 112 123/78 (93) 94 Room Air 01/20/21 11:00 104/71 (82) 94 Room Air 01/20/21 10:00 101/69 (80) 94 Room Air 01/20/21 09:00 106/74 (85) 92 Room Air 01/20/21 08:07 116 01/20/21 08:00 108/83 (91) 94 Room Air 01/20/21 08:00 97 Room Air 01/20/21 07:28 37.0 01/20/21 07:00 114/67 (83) 93 Room Air 01/20/21 06:00 120/68 (85) 93 Room Air 01/20/21 05:00 118/69 (85) 96 Room Air 01/20/21 04:00 37.1 01/20/21 04:00 106/67 (80) 96 Room Air 01/20/21 03:00 113/70 (84) 95 Room Air 01/20/21 02:00 112/74 (87) 95 Room Air 01/20/21 01:00 110 01/20/21 01:00 105/77 (86) 95 Room Air 01/20/21 00:00 36.8 01/20/21 00:00 137/80 (99) 96 Room Air 01/19/21 23:00 104/76 (85) 100 Room Air 01/19/21 22:00 107/66 (80) 100 Room Air 01/19/21 21:00 115/64 (81) 100 Room Air 01/19/21 20:00 147/96 (113) 100 Room Air 01/19/21 20:00 100 Room Air 01/19/21 19:00 130/91 (104) 100 Room Air 01/19/21 19:00 110 01/19/21 18:00 120/87 (98) 100 Room Air 01/19/21 17:00 103/66 (78) 100 Room Air 01/19/21 16:00 124/79 (94) 100 Room Air I & O 01/20/21 07:00 Intake Total 1225 ml Output Total 600 ml Balance 625 ml General Appearance: Chronically ill (thin face, emaciated) HEENT: PERRL/EOMI (sluggish) Neck: Non Tender, Supple Respiratory: Chest Non Tender, Lungs Clear Cardiovascular: Tachycardia Gastrointestinal: Distended (veins present) Rectal: Deferred Back: Normal Inspection Extremity: Non Tender, Pedal Edema (woody edema, hemosiderin deposition, ) Neurologic/Psychiatric: No Alert, No Oriented x3 Skin: Warm/Dry Results Lab Laboratory Tests 01/20/21 03:00: White Blood Count 7.7, Red Blood Count 3.43L, Hemoglobin 9.4L, Hematocrit 31L, Mean Corpuscular Volume 90, Mean Corpuscular Hemoglobin 27, Mean Corpuscular Hemoglobin Concent 31L, Red Cell Distribution Width 24.5H, Platelet Count 123L, Mean Platelet Volume 10.1, Immature Granulocyte % (Auto) 0, Neutrophils (%) (Auto) 74, Lymphocytes (%) (Auto) 11L, Monocytes (%) (Auto) 11, Eosinophils (%) (Auto) 3, Basophils (%) (Auto) 1, Neutrophils # (Auto) 5.7, Lymphocytes # (Auto) 0.8L, Monocytes # (Auto) 0.8, Eosinophils # (Auto) 0.2, Basophils # (Auto) 0.1, Immature Granulocyte # (Auto) 0.0, Sodium Level 134L, Potassium Level 3.8, Chloride Level 105, Carbon Dioxide Level 22, Anion Gap 7, Blood Urea Nitrogen 15, Creatinine 0.84, Estimat Glomerular Filtration Rate > 60, BUN/Creatinine Ratio 18, Glucose Level 110H, Calcium Level 8.0L, Phosphorus Level 2.6, Magnesium Level 2.1 Microbiology 01/18/21 MRSA Screen - Final, Complete MRSA not isolated Assessment/Plan Assessment/Plan Admission Dx acute metabolic encephalopathy due to liver failure Assessment and Plan admitted 01/17/21- lactulose enema -ceftriaxone 1g iv daily for prophylaxis. -Child Tee Score 12- category C 01/19/21- awake. continue rocephin. Dr. Gomes consulted for putting a catheter in to help with paracentesis. Palliative care consult initiated. stopped lactulose. restarted xifaxan. mentation is improving with ammonia trending down. 01/20/21- tunneled peritoneal catheter placed for relief of ascites by Dr. Gomes. Patient voices no concerns this AM but would like to drink or eat something. No blood loss. Hgb stable. Will order albumin since he has ascites drained. Palliative care discussion undertaken daily. does not want hospice that will push morphine and lorazepam and then he within days. He is better compared to yesterday. holding DVT chemoppx due to risk of bleeding. Dispo: poor overall prognosis Discharge planning. Problems: (1) Acute metabolic encephalopathy Assessment & Plan: due to hepatic failure (2) Abdominal ascites Qualifiers: Qualified Codes: K70.31 - Alcoholic cirrhosis of liver with ascites Assessment & Plan: last paracentesis 01/14/21 (3) Chronic blood loss anemia (4) Esophageal varices in cirrhosis (5) Hyponatremia Assessment & Plan: improved. continue to monitor. May change IVF. Admission Dx acute metabolic encephalopathy due to liver failure Clinical Quality Measures Admission Status Admission Dx acute metabolic encephalopathy due to liver failure MICHELLE KAUFMAN MD Jan 20, 2021 15:50
[2021-01-20 17:03] VITALS: BP 111/63
[2021-01-20 20:05] VITALS: BP 129/58
--- NOTE | 2021-01-20 21:52 | OPERATIVE REPORT ---
DATE OF SERVICE: 01/20/2021 ATTENDING PRIMARY CARE PHYSICIAN: Will Lamas MD PREOPERATIVE DIAGNOSIS: End-stage liver disease with recurrent symptomatic ascites. POSTPROCEDURE DIAGNOSIS: End-stage liver disease with recurrent symptomatic ascites. PROCEDURE: Placement of tunneled peritoneal catheter. SURGEON: Peyton Saldivar MD RELIGIOUS EDUCATOR: Júnior Cosme APRN. ANESTHESIA: Monitored anesthesia care with local. ESTIMATED BLOOD LOSS: Minimal. FINDINGS: A straw yellow transudative fluid. DISPOSITION: The patient tolerated the procedure well. INDICATIONS: The patient is a 65-year-old male known to us. He was found to be anemic and developed rectal bleeding as well as ascites in the fall of 2019. He had reported developing a right lower extremity DVT and was started on anticoagulants and developed rectal bleeding. We then proceeded with an EGD and colonoscopy on 09/15/2020 and was found to have grade III esophageal varices, moderate gastritis as well as chronic stage III internal hemorrhoids. He had also undergone a paracentesis. Since that time, he has had multiple paracentesis for symptomatic ascites and it does appear based on his clinical condition as well as laboratory work that he is an end-stage liver disease. He has been requiring a therapeutic paracentesis on much more frequent basis lately and was admitted for significant ascites. DESCRIPTION OF PROCEDURE: The patient was brought to the operating room, laid supine on the table. After adequate IV pain and sedative medications and monitored anesthesia care, the abdomen was prepped and draped in standard surgical fashion. A 1% lidocaine was then used to anesthetize the overlying skin in the right lower abdominal quadrant and a transverse skin incision made using a 15 blade. Another incision was made approximately 5 cm laterally. The tunneled catheter was then placed onto the tunneler and the catheter pulled through the lateral and exited out the medial incision until the cuff was in the subcutaneous space. The peritoneal cavity was then entered withdrawing of straw yellow transudative fluid and the guidewire was then inserted without any resistance. Dilator and sheath were then introduced over the guidewire. The dilator and guidewire were then removed and the catheter was placed through the sheath without any resistance and the sheath removed. The skin incisions were then closed using 3-0 nylon interrupted sutures. The catheter was then sutured to the skin using 3-0 nylon suture. We then proceeded with the drawing of 4 liters of peritoneal fluid for symptomatic relief. The catheter was then covered with sterile gauze followed by Op-Site. The patient tolerated the procedure well. The catheter may be accessed and used for symptomatic drainage of the peritoneal catheter at any time. Job ID: [id number] DocumentID: [id number] Dictated Date: 01/20/2021 14:21:01 Assembly Cleaner Date: 01/20/2021 21:52:12 Dictated By: PEYTON SALDIVAR MD
[2021-01-20] MEDS ORDERED: ALBUMIN 25% 25 GM/100 ML 100 ML IV ONE (23:00)
[2021-01-21 00:05] VITALS: BP 117/66
[2021-01-21 04:00] VITALS: BP 129/70
[2021-01-21 05:45] LABS: BASOPHILS # (AUTO) 0.1 10^3/uL (0.0-0.1); BASOPHILS % (AUTO) 1 % (0-10); EOSINOPHILS # (AUTO) 0.2 10^3/uL (0.0-0.3); EOSINOPHILS % (AUTO) 3 % (0-10); HEMATOCRIT 27 % (40-54); HEMOGLOBIN 8.4 g/dL (13.3-17.7); LYMPHOCYTES # (AUTO) 0.6 10^3/uL (1.0-4.0); LYMPHOCYTES % (AUTO) 10 % (12-44); MEAN CORPUSCULAR HEMOGLOBIN 28 pg (25-34); MEAN CORPUSCULAR HGB CONC 31 g/dL (32-36); MEAN CORPUSCULAR VOLUME 88 fL (80-99); MONOCYTES # (AUTO) 0.7 10^3/uL (0.0-1.0); MONOCYTES % (AUTO) 12 % (0-12); NEUTROPHILS # (AUTO) 4.5 10^3/uL (1.8-7.8); NEUTROPHILS % (AUTO) 74 % (42-75); PLATELET COUNT 80 10^3/uL (130-400); WHITE BLOOD COUNT 6.1 10^3/uL (4.3-11.0)
[2021-01-21 06:01] LABS: CHLORIDE 105 MMOL/L (98-107); POTASSIUM 3.6 MMOL/L (3.6-5.0); SODIUM 134 MMOL/L (135-145)
[2021-01-21 06:02] LABS: CALCIUM 7.7 MG/DL (8.5-10.1)
[2021-01-21 06:03] LABS: GLUCOSE 112 MG/DL (70-105)
[2021-01-21 06:04] LABS: CARBON DIOXIDE 23 MMOL/L (21-32)
[2021-01-21 06:06] LABS: GFR ESTIMATED > 60
[2021-01-21 06:07] LABS: BUN/CREATININE RATIO 16
[2021-01-21] MEDS ORDERED: WATER (STERILE) FOR INJECTION 10 ML ONE (06:16)
[2021-01-21] MEDS ORDERED: cefTRIAXone 1,000 MG IV (ROCEPHIN) VIAL ONE (06:16)
[2021-01-21] MEDS: cefTRIAXone FOR IV USE 1,000 MG in WATER (STERILE) FOR INJECTION 10 ML IV SCH (06:27)
[2021-01-21] MEDS: morphine INJ 4 MG/ML 1 ML (VIAL/SYRINGE) IVP PRN (06:28)
[2021-01-21 08:00] VITALS: BP 112/61
[2021-01-21] MEDS: RIFAXIMIN 550 MG TABLET (XIFAXAN) PO SCH ×2 (09:46→19:52)
--- NOTE | 2021-01-21 10:51 | Progress Note ---
Subjective Date Seen by a Provider: Jan 21, 2021 Time Seen by a Provider: 10:30 Subjective/Events-last exam doing ok now. approx 10liters removed yesterday with very rapid recurrence. patient comfortable now. Objective Exam Vital Signs Date Time Temp Pulse Resp B/P (MAP) Pulse Ox O2 Delivery O2 Flow Rate FiO2 01/21/21 08:00 36.4 108 16 112/61 (78) 96 Room Air 01/21/21 08:00 Room Air 01/21/21 07:00 102 01/21/21 04:00 36.8 105 16 129/70 (89) 94 Room Air 01/21/21 01:00 105 01/21/21 00:05 36.8 106 18 117/66 (83) 93 Room Air 01/20/21 20:05 36.7 112 15 129/58 (81) 95 Room Air 01/20/21 20:00 97 Room Air 01/20/21 19:00 110 01/20/21 17:03 110 16 111/63 (79) 95 Room Air 01/20/21 15:49 36.2 01/20/21 15:00 111/59 (76) Room Air 01/20/21 14:55 Room Air 01/20/21 14:50 37.1 15 130/86 (101) 96 Room Air 01/20/21 14:40 OxyMask 2 01/20/21 14:40 15 140/86 (104) 100 OxyMask 2 01/20/21 14:30 OxyMask 4 01/20/21 14:30 14 136/87 (103) 100 OxyMask 4 01/20/21 14:21 OxyMask 10 01/20/21 14:21 37.1 16 134/87 (103) 97 OxyMask 10 01/20/21 14:00 112 95 Room Air 01/20/21 13:00 112 115/75 (88) 94 Room Air 01/20/21 12:55 114 01/20/21 12:00 112 123/78 (93) 94 Room Air 01/20/21 11:00 104/71 (82) 94 Room Air I & O 01/21/21 07:00 Intake Total 2010 ml Output Total 600 ml Balance 1410 ml Capillary Refill : Greater Than 3 Seconds General Appearance: No Apparent Distress HEENT: PERRL/EOMI Neck: Full Range of Motion Respiratory: Chest Non Tender, Decreased Breath Sounds Cardiovascular: Regular Rate, Rhythm Gastrointestinal: soft, distended Extremity: Normal Capillary Refill Neurologic/Psychiatric: Alert, Oriented x3 Skin: Normal Color Lymphatic: No Adenopathy Results Lab Laboratory Tests 01/21/21 05:15: White Blood Count 6.1, Red Blood Count 3.05L, Hemoglobin 8.4L, Hematocrit 27L, Mean Corpuscular Volume 88, Mean Corpuscular Hemoglobin 28, Mean Corpuscular Hemoglobin Concent 31L, Red Cell Distribution Width 24.4H, Platelet Count 80L, Mean Platelet Volume 9.0, Immature Granulocyte % (Auto) 0, Neutrophils (%) (Auto) 74, Lymphocytes (%) (Auto) 10L, Monocytes (%) (Auto) 12, Eosinophils (%) (Auto) 3, Basophils (%) (Auto) 1, Neutrophils # (Auto) 4.5, Lymphocytes # (Auto) 0.6L, Monocytes # (Auto) 0.7, Eosinophils # (Auto) 0.2, Basophils # (Auto) 0.1, Immature Granulocyte # (Auto) 0.0, Sodium Level 134L, Potassium Level 3.6, Chloride Level 105, Carbon Dioxide Level 23, Anion Gap 6, Blood Urea Nitrogen 11, Creatinine 0.70, Estimat Glomerular Filtration Rate > 60, BUN/Creatinine Ratio 16, Glucose Level 112H, Calcium Level 7.7L Microbiology 01/18/21 MRSA Screen - Final, Complete MRSA not isolated Assessment/Plan Assessment/Plan Assess & Plan/Chief Complaint ESLD s/p tunneled peritoneal cath. may access and use at anytime. likely home with hospice. ASAEL SALDIVAR MD Jan 21, 2021 10:51
[2021-01-21 12:00] VITALS: BP 111/69
--- NOTE | 2021-01-21 14:16 | Physical Therapy Progress Note ---
Therapy Progress Note Order for PT citlaly received. Patient refused this afternoon x2, states he is too tired to participate. Will try back in the morning. BINA SCOTT PT Jan 21, 2021 14:16
--- NOTE | 2021-01-21 16:28 | Progress Note ---
Subjective Subjective Date Seen by Provider: Jan 21, 2021 Time Seen by Provider: 08:30 Patient awake. Resting. He would like to wait until tomorrow to go home. He does not want to go home at all right now because he does not have any help besides his and she has her own health problems. Review of Systems General: No Chills, No Night Sweats HEENT: No Head Aches Pulmonary: Dyspnea, Cough Cardiovascular: No: Chest Pain Gastrointestinal: Abdominal Pain; No: Nausea, Vomiting Genitourinary: No Dysuria Neurological: Weakness Objective Exam Vital Signs Vital Signs Date Time Temp Pulse Resp B/P (MAP) Pulse Ox O2 Delivery O2 Flow Rate FiO2 01/21/21 12:30 106 01/21/21 12:00 36.4 108 18 111/69 (83) 95 Room Air 01/21/21 08:00 36.4 108 16 112/61 (78) 96 Room Air 01/21/21 08:00 Room Air 01/21/21 07:00 102 01/21/21 04:00 36.8 105 16 129/70 (89) 94 Room Air 01/21/21 01:00 105 01/21/21 00:05 36.8 106 18 117/66 (83) 93 Room Air 01/20/21 20:05 36.7 112 15 129/58 (81) 95 Room Air 01/20/21 20:00 97 Room Air 01/20/21 19:00 110 01/20/21 17:03 110 16 111/63 (79) 95 Room Air I & O 01/21/21 07:00 Intake Total 2010 ml Output Total 600 ml Balance 1410 ml General Appearance: No Apparent Distress, Chronically ill HEENT: PERRL/EOMI Neck: Full Range of Motion Respiratory: Chest Non Tender, Decreased Breath Sounds Cardiovascular: Regular Rate, Rhythm Gastrointestinal: Distended (veins present), Hernia (umbilical), Other (catheter (tunneled) right abdomen.) Rectal: Deferred Back: Normal Inspection Extremity: Normal Capillary Refill Neurologic/Psychiatric: Alert, Oriented x3 Skin: Normal Color Lymphatic: No Adenopathy Results Lab Laboratory Tests 01/21/21 05:15: White Blood Count 6.1, Red Blood Count 3.05L, Hemoglobin 8.4L, Hematocrit 27L, Mean Corpuscular Volume 88, Mean Corpuscular Hemoglobin 28, Mean Corpuscular Hemoglobin Concent 31L, Red Cell Distribution Width 24.4H, Platelet Count 80L, Mean Platelet Volume 9.0, Immature Granulocyte % (Auto) 0, Neutrophils (%) (Auto) 74, Lymphocytes (%) (Auto) 10L, Monocytes (%) (Auto) 12, Eosinophils (%) (Auto) 3, Basophils (%) (Auto) 1, Neutrophils # (Auto) 4.5, Lymphocytes # (Auto) 0.6L, Monocytes # (Auto) 0.7, Eosinophils # (Auto) 0.2, Basophils # (Auto) 0.1, Immature Granulocyte # (Auto) 0.0, Sodium Level 134L, Potassium Level 3.6, Chloride Level 105, Carbon Dioxide Level 23, Anion Gap 6, Blood Urea Nitrogen 11, Creatinine 0.70, Estimat Glomerular Filtration Rate > 60, BUN/Creatinine Ratio 16, Glucose Level 112H, Calcium Level 7.7L Microbiology 01/18/21 MRSA Screen - Final, Complete MRSA not isolated Assessment/Plan Assessment/Plan Admission Dx acute metabolic encephalopathy due to liver failure Assessment and Plan admitted 01/17/21- lactulose enema -ceftriaxone 1g iv daily for prophylaxis. -Child Tee Score 12- category C 01/19/21- awake. continue rocephin. Dr. Gomes consulted for putting a catheter in to help with paracentesis. Palliative care consult initiated. stopped lactulose. restarted xifaxan. mentation is improving with ammonia trending down. 01/20/21- tunneled peritoneal catheter placed for relief of ascites by Dr. Gomes. Patient voices no concerns this AM but would like to drink or eat something. No blood loss. Hgb stable. Will order albumin since he has ascites drained. Palliative care discussion undertaken daily. does not want hospice that will push morphine and lorazepam and then he within days. He is better compared to yesterday. 01/21/21- Discussed with and patient the benefit of home with hospice. Will plan for patient to D/C Sunday01/23/21 to home on hospice. I do expect him to in the next six months as his hepatic failure continue to progress. He had declined transfer or referral to for GI consult and intervention options. D/c IVFs as he is taking in more po. Also with IVF his abdomen has filled back up after taking 10 liters off yesterday. d/c pending orders placed. Looks like [facility] be the [facility]. I have sent oxycodone 5mg 1 tablet po [id number] as needed #14 from my office. holding DVT chemoppx due to risk of bleeding. Dispo: poor overall prognosis Discharge planning. Problems: (1) Acute metabolic encephalopathy Assessment & Plan: due to hepatic failure- resolved (2) Abdominal ascites Qualifiers: Qualified Codes: K70.31 - Alcoholic cirrhosis of liver with ascites Assessment & Plan: last paracentesis 01/14/21 (3) Chronic blood loss anemia (4) Esophageal varices in cirrhosis (5) Hyponatremia Assessment & Plan: improved. continue to monitor. May change IVF. (6) Chronic liver failure Qualifiers: Qualified Codes: K72.10 - Chronic hepatic failure without coma Admission Dx acute metabolic encephalopathy due to liver failure Clinical Quality Measures Admission Status Admission Dx acute metabolic encephalopathy due to liver failure MICHELLE KAUFMAN MD Jan 21, 2021 16:28
[2021-01-21 16:52] VITALS: BP 119/64
[2021-01-21 19:56] VITALS: BP 128/75
[2021-01-22] VITALS: BP 125/76
[2021-01-22 04:00] VITALS: BP 116/75
[2021-01-22 05:48] LABS: BASOPHILS % (AUTO) 1 % (0-10); EOSINOPHILS # (AUTO) 0.3 10^3/uL (0.0-0.3); EOSINOPHILS % (AUTO) 4 % (0-10); HEMATOCRIT 31 % (40-54); HEMOGLOBIN 9.8 g/dL (13.3-17.7); LYMPHOCYTES # (AUTO) 0.9 10^3/uL (1.0-4.0); LYMPHOCYTES % (AUTO) 11 % (12-44); MEAN CORPUSCULAR HEMOGLOBIN 28 pg (25-34); MEAN CORPUSCULAR HGB CONC 32 g/dL (32-36); MEAN CORPUSCULAR VOLUME 88 fL (80-99); MEAN PLATELET VOLUME 9.5 fL (9.0-12.2); MONOCYTES % (AUTO) 12 % (0-12); NEUTROPHILS # (AUTO) 5.7 10^3/uL (1.8-7.8); NEUTROPHILS % (AUTO) 72 % (42-75); PLATELET COUNT 102 10^3/uL (130-400)
[2021-01-22 05:58] LABS: CHLORIDE 104 MMOL/L (98-107); POTASSIUM 3.8 MMOL/L (3.6-5.0); SODIUM 132 MMOL/L (135-145)
[2021-01-22 06:00] LABS: CALCIUM 7.9 MG/DL (8.5-10.1); GLUCOSE 94 MG/DL (70-105)
[2021-01-22 06:02] LABS: CARBON DIOXIDE 21 MMOL/L (21-32)
[2021-01-22 06:04] LABS: GFR ESTIMATED > 60
[2021-01-22 06:05] LABS: BUN/CREATININE RATIO 17
[2021-01-22] MEDS ORDERED: cefTRIAXone 1,000 MG IV (ROCEPHIN) VIAL ONE (07:34)
[2021-01-22] MEDS ORDERED: WATER (STERILE) FOR INJECTION 10 ML ONE (07:34)
[2021-01-22] MEDS: RIFAXIMIN 550 MG TABLET (XIFAXAN) PO SCH ×2 (07:48→20:10)
[2021-01-22] MEDS: cefTRIAXone FOR IV USE 1,000 MG in WATER (STERILE) FOR INJECTION 10 ML IV SCH ×2 (07:49→11:59)
[2021-01-22 07:54] VITALS: BP 117/64
--- NOTE | 2021-01-22 09:29 | Physical Therapy Evaluation ---
PT Evaluation-General Medical Diagnosis Admission Date Jan 17, 2021 at 23:30 Medical Diagnosis: acute metabolic encephalopathy due to liver failure Onset Date: Jan 22, 2021 Therapy Diagnosis Therapy Diagnosis: difficulty walking Precautions Precautions/Isolations: Fall Prevention, Standard Precautions, Pressure Ulcer Weight Bear Status Weight Bearing/Tolerated Weight Bearing/Tolerated Referral Physician: Adams Reason for Referral: Evaluation/Treatment Medical History Pertinent Medical History: Alcoholism, PVD, Smoking Social History Home: Single Level Current Living Status: Spouse Entry Into Home: Stairs With Railing PT Steps Into Home: 3 Prior Prior Level of Function SCALE: Activities may be completed with or without assistive devices. 2-Morqyeanwu-fphbbkn completes the activity by him/herself with no assistance from a helper. 5-Set-up or Clean-up Assistance-helper sets up or cleans up; patient completes activity. Rufus assists only prior to or following the activity. 4-Supervision or Touching Assistance-helper provides verbal cues and/or touching/steadying and/or contact guard assistance as patient completes activity. Assistance may be provided throughout the activity or intermittently. 3-Partial/Moderate Assistance-helper does LESS THAN HALF the effort. Rufus lifts, holds or supports trunk or limbs, but provides less than half the effort. 2-Substantial/Maximal Assistance-helper does MORE THAN HALF the effort. Rufus lifts or holds trunk or limbs and provides more than half the effort. 3-Pguvlutlq-zmacrp does ALL the effort. Patient does none of the effort to complete the activity. Or, the assistance of 2 or more helpers is required for the patient to complete the activity. If activity was not attempted, code reason: 7-Patient Refused. 9-Not Applicable-not attempted and the patient did not perform the activity before the current illness, exacerbation or injury. 10-Not Attempted due to Environmental Limitations-(lack of equipment, weather restraints, etc.). 88-Not Attempted due to Medical Conditions or Safety Concerns. Bed Mobility: 6 Transfers (B,C,W/C): 6 Gait: 6 Stairs: 6 Indoor Mobility (Ambulation): Independent Stairs: Independent Prior Devices Use: None PT Evaluation-Current Subjective The patient states that he started feeling bad a few days ago and now hurts all over. Pain Numeric Pain Scale: 8 Objective Patient Orientation: Person, Place, Time ROM/Strength ROM Upper Extremities WFL ROM Lower Extremities WFL Strength Upper Extremities 3+/5 grossly Strength Lower Extremities 3+/5 grossly Transfers Roll Left to Right (QC): 3 Sit to Lying (QC): 3 Lying to Sitting/Side of Bed(Q: 3 Sit to Stand (QC): 4 Gait Does the Patient Walk?: No and Walking Goal IS indicated Mode of Locomotion: Walk Anticipated Mode of Locomotion: Both Walk 10 feet (QC): 88 Walk 50 ft with 2 Turns(QC): 88 Walk 150 ft (QC): 88 Walking 10ft/uneven surface-QC: 88 Distance: 0 Balance Sitting Static: Good Sitting Dynamic: Good Standing Static: Poor Picking up an Object (QC): 88 Assessment/Needs The patient has significant functional weakness that is causing functional mobility difficulty. He was unable to take steps today secondary to weakness. Rehab Potential: Fair PT Short Term Goals Short Term Goals Time Frame: Jan 29, 2021 Roll Left & Right: 5 Sit to lyin Lying to sitting on side of be: 5 Sit to stand: 5 Chair/uaw-ip-wudpz transfer: 5 Toilet transfer: 5 Car transfer: 5 Walk 10 feet: 5 Walk 50 feet with two turns: 5 Walk 150 feet: 5 Walking 10ft on uneven surface: 5 1 step (curb): 5 4 steps: 5 12 steps: 5 PT Fdc Goals Fdc Goals PT Repairer And Checker Goals Time Frame: Feb 05, 2021 Roll Left & Right (QC): 6 Sit to Lying (QC): 6 Lying-Sitting on Side/Bed(QC): 6 Sit to Stand (QC): 6 Chair/Qtj-fh-Frnja Xfer(QC): 6 Toilet Transfer (QC): 6 Car Transfer (QC): 6 Does the Patient Walk: No and Walking Goal IS indicated Walk 10 feet (QC): 6 Walk 50ft with 2 Turns (QC): 6 Walk 150 ft (QC): 6 Walking 10ft on Uneven Surface: 6 1 Step (curb) (QC): 6 4 Steps (QC): 6 12 Steps (QC): 6 Picking up an Object (QC): 6 PT Plan Problem List Problem List: Activity Tolerance, Functional Strength, Balance, Gait, Transfer, Bed Mobility, ROM Treatment/Plan Treatment Plan: Continue Plan of Care Treatment Plan: Bed Mobility, Functional Activity Monique, Functional Strength, Gait, Safety, Therapeutic Exercise, Transfers Treatment Duration: Feb 05, 2021 Frequency: 11 times per week Estimated Hrs Per Day: 1 hour per day Discharge Recommendations Therapy Discharge Recommendati: Post Acute PT Time/GCodes Time In: 905 Time Out: 920 Total Billed Treatment Time: 15 Total Billed Treatment 1, EV low Complexity BAYRON COX PT Jan 22, 2021 09:29
--- NOTE | 2021-01-22 11:20 | Progress Note ---
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 Ascites has worsened. Plan is for DC home tomorrow with hospice. Objective Exam Vital Signs Date Time Temp Pulse Resp B/P (MAP) Pulse Ox O2 Delivery O2 Flow Rate FiO2 01/22/21 08:00 Room Air 01/22/21 07:54 36.2 100 22 117/64 (81) 94 Room Air 01/22/21 07:00 96 01/22/21 04:00 36.6 102 16 116/75 (89) 96 Room Air 01/22/21 01:00 103 01/22/21 00:00 37.0 105 20 125/76 (92) 94 Room Air 01/21/21 23:16 96 Room Air 01/21/21 19:56 36.6 104 16 128/75 (92) 96 Room Air 01/21/21 19:56 Room Air 01/21/21 19:00 97 01/21/21 16:52 36.4 103 16 119/64 (82) 96 Room Air 01/21/21 12:30 106 01/21/21 12:00 36.4 108 18 111/69 (83) 95 Room Air I & O 01/22/21 07:00 Intake Total 2930 ml Output Total 725 ml Balance 2205 ml Capillary Refill : Greater Than 3 Seconds General Appearance: No Apparent Distress Respiratory: Lungs Clear Cardiovascular: Regular Rate, Rhythm Gastrointestinal: distended, other (scites) Extremity: Non Tender, No Calf Tenderness, No Pedal Edema Neurologic/Psychiatric: Alert, Oriented x3 Skin: Warm/Dry, Jaundice Results Lab Laboratory Tests 01/22/21 05:26: White Blood Count 8.0, Red Blood Count 3.53L, Hemoglobin 9.8L, Hematocrit 31L, Mean Corpuscular Volume 88, Mean Corpuscular Hemoglobin 28, Mean Corpuscular Hemoglobin Concent 32, Red Cell Distribution Width 25.0H, Platelet Count 102L, Mean Platelet Volume 9.5, Immature Granulocyte % (Auto) 1, Neutrophils (%) (Auto) 72, Lymphocytes (%) (Auto) 11L, Monocytes (%) (Auto) 12, Eosinophils (%) (Auto) 4, Basophils (%) (Auto) 1, Neutrophils # (Auto) 5.7, Lymphocytes # (Auto) 0.9L, Monocytes # (Auto) 1.0, Eosinophils # (Auto) 0.3, Basophils # (Auto) 0.0, Immature Granulocyte # (Auto) 0.0, Sodium Level 132L, Potassium Level 3.8, Chloride Level 104, Carbon Dioxide Level 21, Anion Gap 7, Blood Urea Nitrogen 12, Creatinine 0.70, Estimat Glomerular Filtration Rate > 60, BUN/Creatinine Ratio 17, Glucose Level 94, Calcium Level 7.9L Microbiology 01/18/21 MRSA Screen - Final, Complete MRSA not isolated Assessment/Plan Assessment/Plan Assess & Plan/Chief Complaint 1. End Stage Liver Disease with recurrent ascites--S/P peritoneal catheter so will access today and drain and resume rocephin until DC, DC planning for eladio [place] with hospice 2. Hepatic Encephalopathy--improved 3. Hyponatremia--stable 4. Hypoalbuminemia--replace albumin x 3 doses 5. Chronic Esophageal Varices from Cirrhosis with Chronic Anemia--stable DONNA NOBLES DO Jan 22, 2021 11:20
[2021-01-22 12:20] VITALS: BP 118/67
[2021-01-22 15:30] VITALS: BP 117/69
[2021-01-22] MEDS: ALBUMIN 25% 25 GM/100 ML 50 ML IV SCH ×2 (16:01→22:14)
[2021-01-22 20:26] VITALS: BP 106/62
[2021-01-23 00:15] VITALS: BP 119/66
[2021-01-23] MEDS: morphine INJ 4 MG/ML 1 ML (VIAL/SYRINGE) IVP PRN (00:31)
[2021-01-23 04:04] VITALS: BP 126/70
[2021-01-23 04:51] LABS: BASOPHILS # (AUTO) 0.1 10^3/uL (0.0-0.1); BASOPHILS % (AUTO) 1 % (0-10); EOSINOPHILS # (AUTO) 0.3 10^3/uL (0.0-0.3); EOSINOPHILS % (AUTO) 5 % (0-10); HEMATOCRIT 28 % (40-54); HEMOGLOBIN 8.8 g/dL (13.3-17.7); LYMPHOCYTES # (AUTO) 0.9 10^3/uL (1.0-4.0); LYMPHOCYTES % (AUTO) 13 % (12-44); MEAN CORPUSCULAR HEMOGLOBIN 28 pg (25-34); MEAN CORPUSCULAR HGB CONC 32 g/dL (32-36); MEAN CORPUSCULAR VOLUME 88 fL (80-99); MEAN PLATELET VOLUME 9.7 fL (9.0-12.2); MONOCYTES # (AUTO) 0.9 10^3/uL (0.0-1.0); MONOCYTES % (AUTO) 13 % (0-12); NEUTROPHILS # (AUTO) 4.9 10^3/uL (1.8-7.8); NEUTROPHILS % (AUTO) 69 % (42-75); PLATELET COUNT 109 10^3/uL (130-400); WHITE BLOOD COUNT 7.2 10^3/uL (4.3-11.0)
[2021-01-23 05:02] LABS: CHLORIDE 103 MMOL/L (98-107); POTASSIUM 3.7 MMOL/L (3.6-5.0); SODIUM 131 MMOL/L (135-145)
[2021-01-23 05:03] LABS: CALCIUM 7.7 MG/DL (8.5-10.1); GLUCOSE 87 MG/DL (70-105)
[2021-01-23 05:05] LABS: CARBON DIOXIDE 22 MMOL/L (21-32)
[2021-01-23 05:07] LABS: CREATININE SERUM 0.65 MG/DL (0.60-1.30); GFR ESTIMATED > 60
[2021-01-23 05:08] LABS: BUN/CREATININE RATIO 20
[2021-01-23] MEDS: ALBUMIN 25% 25 GM/100 ML 50 ML IV SCH (05:34)
[2021-01-23 08:15] VITALS: BP 109/66
[2021-01-23] MEDS: RIFAXIMIN 550 MG TABLET (XIFAXAN) PO SCH (09:33)
--- NOTE | 2021-01-23 11:15 | Discharge Summary ---
Diagnosis/Chief Complaint Date of Admission Jan 17, 2021 at 23:30 Date of Discharge Discharge Date: Jan 23, 2021 Discharge Time: 11:08 Discharge Diagnosis 1. End Stage Liver Disease with recurrent ascites--S/P peritoneal catheter so will access today and drain and plan on DC home with hospice in place 2. Hepatic Encephalopathy--improved 3. Hyponatremia--stable 4. Hypoalbuminemia--replace albumin yesterday 5. Chronic Esophageal Varices from Cirrhosis with Chronic Anemia--stable Discharge Summary Hospital Course Was the Problem List Reviewed?: Yes Hospital Course This is a 65 year old male with a history of end stage liver disease who was initially admitted for hepatic encephalopathy. He received lactulose and his ammonia levels trended back to normal with improvement of his mental status. He did have severe ascites so surgery was consulted for placement of a peritoneal catheter. He initially had almost 10 liters of ascites removed and the perito adele catheter has been accessed twice since then. His lactulose has been stopped and his rifaxin restarted. He has been on Rocephin for prophylaxis as well. He did have albumin replaced after his last peritoneal drainage. He also has a longstanding history of anemia with esophageal varices. His H/H has been stable. He has decided to not pursue GI consultation and at this time arrangements have been made for him to go home with hospice. Labs Laboratory Tests 01/21/21 05:15: Red Blood Count 3.05L, Hemoglobin 8.4L, Hematocrit 27L, Mean Corpuscular Hemoglobin Concent 31L, Red Cell Distribution Width 24.4H, Platelet Count 80L, Lymphocytes (%) (Auto) 10L, Lymphocytes # (Auto) 0.6L, Sodium Level 134L, Glucose Level 112H, Calcium Level 7.7L 01/22/21 05:26: Red Blood Count 3.53L, Hemoglobin 9.8L, Hematocrit 31L, Red Cell Distribution Width 25.0H, Platelet Count 102L, Lymphocytes (%) (Auto) 11L, Lymphocytes # (Auto) 0.9L, Sodium Level 132L, Calcium Level 7.9L 01/23/21 04:40: Red Blood Count 3.14L, Hemoglobin 8.8L, Hematocrit 28L, Red Cell Distribution Width 24.9H, Platelet Count 109L, Lymphocytes # (Auto) 0.9L, Sodium Level 131L, Calcium Level 7.7L, Monocytes (%) (Auto) 13H Procedures Abdominal Peritoneal Catheter Placement Consultations Dr. Gomes Palliative Care Discharge Physical Examination Allergies: Coded Allergies: No Known Drug Allergies (Unverified , 09/09/20) Vitals & I&Os Vital Signs Date Time Temp Pulse Resp B/P (MAP) Pulse Ox O2 Delivery O2 Flow Rate FiO2 01/23/21 08:15 36.6 100 17 109/66 (80) 94 Room Air 01/20/21 14:40 2 General Appearance: Alert, Oriented X3, No Acute Distress Respiratory: Clear to Auscultation Cardiovascular: Regular Rate Abdominal: Normal Bowel Sounds, Soft, Other (ascites) Neuro: Other (weakness) Psych/Mental Status: Mental Status NL Discharge Home Medications Reviewed and agree with Discharge Medication list on patient's Discharge Instruction sheet Instructions to Patient/Family Please see electronic discharge instructions given to patient. DONNA NOBLES DO Jan 23, 2021 11:15
[2021-01-23] MEDS ORDERED: MAGN500T PO (11:19)
[2021-01-23] MEDS ORDERED: HYDR-3820 PO (11:19)
[2021-01-23] MEDS: cefTRIAXone FOR IV USE 1,000 MG in WATER (STERILE) FOR INJECTION 10 ML IV SCH (11:25)
[2021-01-23 11:58] VITALS: BP 103/61
== END 2021-01-23 13:51 | disposition hospice, home (50) | DRG 420 ==
LOC: EDUNIT# 22:12 → ER 22:13 → ICU 23:30 → 4TH 01-20 16:58
PROVIDERS: ADMIT Family Medicine; ATTEND Family Medicine
PROC: 0W9G00Z Drainage of Peritoneal Cavity with Drainage Device, Open Approach (ICD-10-PCS; principal; 2021-01-20 13:32)
DX: K70.31 Alcoholic cirrhosis of liver with ascites (principal); G93.41 Metabolic encephalopathy; I85.10 Secondary esophageal varices without bleeding; E87.1 Hypo-osmolality and hyponatremia; K70.40 Alcoholic hepatic failure without coma; B19.20 Unspecified viral hepatitis C without hepatic coma; F10.20 Alcohol dependence, uncomplicated; Z66 Do not resuscitate; E88.09 Other disorders of plasma-protein metabolism, not elsewhere classified; D50.0 Iron deficiency anemia secondary to blood loss (chronic); F17.210 Nicotine dependence, cigarettes, uncomplicated; K21.9 Gastro-esophageal reflux disease without esophagitis; R00.0 Tachycardia, unspecified; Z86.16 Personal history of COVID-19; Z86.718 Personal history of other venous thrombosis and embolism
CPT/HCPCS: 36415; 51702; 70450; 71045; 80048; 80053; 80306; 80320; 80329; 81000; 82140; 82150; 82805; 83605; 83690; 83735; 84100; 84443; 84484; 85007; 85025; 85027; 85610; 85730; 87081; 93005; 93041; 94760; 99291